=== PATIENT | female | born 1975 | race Caucasian/White ===

== ENCOUNTER → 2017-10-28 16:03 | Outpatient (CLI) | payer OTHER, SELFPAY | PROVIDERS: Visit Provider Otolaryngology Otolaryngology/Facial Plastic Surgery | DX: J32.9 Chronic sinusitis, unspecified (principal) | CPT/HCPCS: 87070; 87186; 87205 ==

== ENCOUNTER → 2019-03-27 06:56 | Outpatient (CLI) | payer OTHER, SELFPAY ==
--- NOTE | 2019-03-27 15:29 | PFTCOMP ---
COMPLETE PULMONARY FUNCTION TEST INTERPRETATION Brief HPI: Patient is a 43 year old female, currently under the care of Dr. Galeana, who presents to [facility] for complete pulmonary function tests secondary to diagnosis of cough. Respiratory therapist reports good effort and reproducible results. Interpretation: Forced expiration spirometry shows no large airways obstructive ventilatory defect with an FEV1 of 85% predicted. There is no significant bronchodilator response by strict ATS criteria. Spirograms are of good quality and plateau normally. The respiratory flow volume loop shows a normal pattern. Lung volumes by body plethysmography show a normal total lung capacity at 5.81 L, 103% predicted. All other lung volumes are within normal limits. Diffusion capacity by carbon monoxide is normal at 94% predicted. The airway resistance is normal. No previous pulmonary function tests were available for review. Impression: These pulmonary function tests are within normal limits. Consider bronchoprovocation study if asthma is a consideration.
== END ==
PROVIDERS: Referring Provider Otolaryngology Otolaryngology/Facial Plastic Surgery; Visit Provider Otolaryngology Otolaryngology/Facial Plastic Surgery
DX: R05 Cough (principal); T78.40XA Allergy, unspecified, initial encounter
CPT/HCPCS: 94060; 94726; 94729

== ENCOUNTER → 2020-04-04 16:29 | Outpatient (CLI) | payer BC, SELFPAY ==
[2019-11-27 06:54] VITALS: BMI 53.4
== END ==
PROVIDERS: Referring Provider Otolaryngology; Visit Provider Otolaryngology
DX: J32.9 Chronic sinusitis, unspecified (principal)
CPT/HCPCS: 87070; 87205

== ENCOUNTER 2021-03-30 20:51 | Emergency (ER) | payer BC, SELFPAY ==
[2021-01-21 07:50] VITALS: BMI 51.5
[2021-03-30 20:52] VITALS: BP 176/98; PULSE 87; RESP 15; TEMP 36.6; O2SAT 96; BMI 50.8
--- NOTE | 2021-03-30 21:12 | CT_ITS ---
STUDY: CT ABDOMEN AND PELVIS WITHOUT CONTRAST REASON FOR EXAM: Female, 45 years old. LOWER ABD PAIN, BACK PAIN, FREQUENT URINATION, HEMATURIA SHOWN ON LABS SINCE YESTERDAY. SX/ HYSTER RADIATION DOSAGE (If Supplied By Facility): CTDIvol = ( 23.99 ) mGy, DLP = ( 1222.60 ) mGycm TECHNIQUE: Transaxial images were obtained from the dome of the diaphragm to the symphysis pubis without oral contrast, and without intravenous contrast. Sagittal and coronal images were reconstructed. Individualized dose optimization techniques were used for this CT. COMPARISON: None. FINDINGS: The visualized lung bases are unremarkable. The visualized portions of the heart are within normal limits. There is decreased attenuation of the liver consistent with steatosis. Normal gallbladder and extrahepatic biliary system. Normal spleen. Normal pancreas. Normal bilateral adrenal glands. A 3.4 mm calyceal stone is present in lower pole of the right kidney. A 6.2 mm calyceal stone is also present in the inferior pole of the right kidney. A 1.14 cm calyceal stone is present in the lower pole of the left kidney. No additional visualized radiopaque stones of either kidney. No visualized hydronephrosis. Normal visualized stomach. Normal small intestine. Normal colon. The appendix is visualized and appears normal. Normal abdominal aorta. Normal inferior vena cava. Normal retroperitoneum. Normal urinary bladder. There is absence of the uterus consistent with a prior hysterectomy. Normal abdominal wall. Normal osseous structures. CT/Abdomen/Pelvis without Cont IMPRESSION: 1. Bilateral nonobstructing kidney stones. The largest stone is in the lower pole of the left kidney measure 1.14 cm in diameter. Electronically Signed: Carmine Smith MD at 22:07 EDT , Service support ,
--- NOTE | 2021-03-30 21:20 | EX.ED.DYSGE1 ---
HPI History of Present Illness Chief Complaint: Complaint Informant: patient Onset/Context/Timing Onset: Yesterday Context: Gradual Onset Timing: Continuous Quality: Cramping Location: Suprapubic Worsened by: Nothing Relieved by: Nothing Narrative Narrative: Patient presents with urinary frequency and suprapubic abdominal pain. Patient states this began yesterday. Patient states it is gradually getting worse. Patient states she went to the urgent care today. Patient states that her urine showed hematuria there. Patient states they then referred her to the emergency department for possible kidney stone. Patient denies any flank or back pain. Patient admits to some nausea but denies any vomiting. Patient admits to some subjective chills. Patient denies any fevers. Patient admits to some mild cramping in the suprapubic area. Patient states nothing makes it better nothing makes it worse. PFSH PFSH Medical History Allergic rhinitis Asthma Cough migraine Seasonal allergies Home Medications estradiol 1 mg tablet 1 mg PO DAILY 04/16/19 [History Last Taken Unknown] fluticasone propionate 50 mcg/actuation nasal spray,suspension 2 spray INTRANASAL DAILY 04/17/19 [History Last Taken Unknown] albuterol sulfate 90 mcg/actuation aerosol inhaler 2 puff INHALATION Q4H PRN #18 g 11/27/19 [Rx Last Taken Unknown] fluticasone furoate 200 mcg-vilanterol 25 mcg/dose inhalation powder 1 inh INHALATION Q24H #60 ea 01/21/21 [Rx Last Taken Unknown] montelukast 10 mg tablet 10 mg PO QPM #30 tab 01/21/21 [Rx Last Taken Unknown] Allergy/AdvReac Type Severity Reaction Status Date / Time codeine Allergy Intermediate Rash Verified 01/21/21 07:50 Penicillins [PCN] Allergy Diarrhea Verified 03/30/21 20:54 Family History Father Cancer Mother Asthma Grandfather Lung cancer Surgical History History of hysterectomy History of tonsillectomy and adenoidectomy Social History Smoking Status: Never smoker second hand exposure: No ROS ROS ED Constitutional Constitutional ED: Reports chills and subjective; Denies fever(s) Eyes Eyes: Denies blurry vision or change in vision ENT ENT ED: Denies rhinorrhea or sore throat Cardiovascular Cardiovascular: Denies chest pain or palpitations Respiratory/Chest Respiratory/Chest: Denies cough or dyspnea Gastrointestinal Gastrointestinal: Reports nausea; Denies vomiting Genitourinary Genitourinary ED: Reports urinary frequency; Denies dysuria or hematuria Musculoskeletal Musculoskeletal: Denies back pain or neck pain Integumentary Denies abscess or rash Neurologic Neurologic: Denies headache(s) or weakness Allergic/Immunologic Allergic/Immunologic ED: Denies mouth swelling or urticaria EXAM Physical Exam Const Vital Signs: 03/30/21 20:52 Temperature 97.8 F Temperature Source Temporal Pulse Rate 87 Respiratory Rate 15 Blood Pressure 176/98 H Blood Pressure Mean 124 Pulse Ox 96 Oxygen Delivery Method Room Air Positive well nourished, well developed and obese General Appearance ED: well developed Nutritional Appearance: obese HEENT Reports moist mucous membranes Neck supple and no JVD Resp normal respiratory effort and clear to auscultation bilaterally Cardio regular rate, regular rhythm and no murmurs GI normal to inspection, nondistended, normoactive bowel sounds Palpation: soft and tender suprapubic (Mild); Negative for guarding or rebound tenderness present Extremity normal to inspection General Extremety ED: Negative for edema or tenderness General Extremity: Negative for edema Neuro oriented x3, CN's II-XII intact bilaterally and no sensory deficits noted Sensorium / Orientation: alert Motor Exam: strength 5/5 throughout Psych mental status grossly normal Skin no rashes or lesions noted MDM MDM MDM Narrative Medical decision making narrative: Patient was given IV fluids and Zofran here. CBC and comprehensive metabolic profile were obtained and were within normal limits. Urinalysis was normal. There is no hematuria noted. CT scan of the abdomen pelvis was obtained. There are nonobstructing stones in the kidneys bilaterally. There is no acute abnormality noted. Patient was advised of her findings. Patient was instructed to drink plenty of fluids. Patient was instructed to follow-up with her primary care physician in 5 to 7 days. Patient understood and was agreeable with the plan. All questions were answered. Lab Data Attestation: I reviewed the patient's lab results. Labs: Laboratory Results - last 24 hr 03/30/21 03/30/21 03/30/21 21:03 21:33 21:33 WBC 7.8 RBC 4.61 Hgb 13.6 Hct 41.6 MCV 90.2 MCH 29.5 MCHC 32.7 RDW Std Deviation 41.6 RDW Coeff of Berenice 12.7 Plt Count 277 MPV 9.8 Immature Gran % (Auto) 0.500 Neut % (Auto) 63.0 Lymph % (Auto) 25.8 [place] % (Auto) 8.4 Eos % (Auto) 1.0 Baso % (Auto) 1.3 H Absolute Neuts (auto) 4.9 Absolute Lymphs (auto) 2.01 Nucleated RBC % 0 Sodium 136 Potassium 3.7 Chloride 106 Carbon Dioxide 25.0 Anion Gap 5 BUN 11 Creatinine 0.82 Estim Creat Clear Calc 84.25 Est GFR (MDRD) Af Amer 97 Est GFR (MDRD) Non-Af 80 BUN/Creatinine Ratio 13.4 Glucose 89 Calcium 9.4 Total Bilirubin 0.40 AST 18 ALT 17 Alkaline Phosphatase 69 Total Protein 7.9 Albumin 3.4 Globulin 4.5 H Albumin/Globulin Ratio 0.8 L Urine Color Yellow Urine Clarity Clear Urine pH 7.0 Ur Specific [place] 1.005 Urine Protein Negative Urine Glucose (UA) Normal Urine Ketones Negative Urine Occult Blood Negative Urine Nitrite Negative Urine Bilirubin Negative Urine Urobilinogen Normal Ur Leukocyte Esterase Negative Urine RBC 0 SEEN Urine WBC 0 SEEN Ur Squamous Epith Cells 0-5 SEEN Urine Bacteria 0 SEEN Urine Mucus 0 SEEN Radiography Diagnostic Testing: Radiology Impression Abdomen/Pelvis CT 03/30/21 21:12 IMPRESSION: 1. Bilateral nonobstructing kidney stones. The largest stone is in the lower pole of the left kidney measure 1.14 cm in diameter. Electronically Signed: Carmine Smith MD at 22:07 EDT , Service support , Discharge Plan Triage Chief Complaint: Complaint ED Provider: Abimael Peter Dx/Rx/DC Orders Clinical Impression: Abdominal pain Instructions: ED Abdominal Pain Unkn Cause Fem, ED Kidney Stone Undescended No ... Prescriptions: No Action estradiol 1 mg tablet 1 mg PO DAILY RF: 0 fluticasone propionate [Flonase Allergy Relief] 50 mcg/actuation spray,suspension 2 spray INTRANASAL DAILY RF: 0 albuterol sulfate 90 mcg/actuation HFA aerosol inhaler 2 puff INHALATION Q4H PRN (Reason: shortness of breath or wheezing) Qty: 18 RF: 3 Breo Ellipta 200-25 mcg/dose blister with device 1 inh INHALATION Q24H Qty: 60 RF: 6 montelukast 10 mg tablet 10 mg PO QPM Qty: 30 RF: 5 Primary Care Provider: Care Physician,No Primary Referrals: Pankaj Rick MD [NON-STAFF] - 5-7 Days Care Physician,No Primary [Primary Care Provider] - Disposition Disposition: Home, Self Care
[2021-03-30] MEDS: 0.9% Normal Saline 1,000 ML 1000 ML IV (21:35)
[2021-03-30] MEDS: Ondansetron 4 MG/2 ML Vial IV (21:35)
[2021-03-30 21:36] LABS: Bacteria 0 SEEN /hpf (None Seen); Mucous, Urine 0 SEEN /hpf (<or=2+); Red Blood Cells-Urine 0 SEEN /hpf (0-5); White Blood Cells 0 SEEN /hpf (0-5)
[2021-03-30 21:37] LABS: Color, Urine Yellow (Yellow); Glucose, Dipstick Normal (Normal); Ketone-Dipstick Negative (Negative); Leukocyte Esterase-Dipstick Negative /ul (Negative); Nitrite-Dipstick Negative (Negative); Occult Blood-Urine Negative /ul (Negative); Protein-Dipstick Negative (Negative); Specific Gravity, Urine 1.005 (1.002-1.030); Urine Bilirubin Dipstick Negative (Negative); Urine Clarity Clear (Clear); Urine Urobilinogen Normal (Normal)
[2021-03-30 21:43] LABS: Squamous Epithelial Cells - UA 0-5 SEEN /hpf (5-10)
[2021-03-30 21:44] LABS: Absolute Lymphocyte Count 2.01 X10^3/uL (0.83-4.51); Absolute Neutrophil Count 4.9 X10^3/uL (2.0-7.7); Basophil% 1.3 % (0-1); Eosinophil# 0.08 X10^3/uL; Hematocrit 41.6 % (37-47); Hemoglobin 13.6 g/dL (12.0-15.0); Lymphocyte # 2.01 X10^3/ul (0.83-4.51); Lymphocyte % 25.8 % (19-41); Mean Corp Hgb Conc 32.7 g/dL (32-36); Mean Corpuscular Hgb 29.5 pg (27.0-32.0); Mean Corpuscular Volume 90.2 fL (81-99); Mean Platelet Vol. 9.8 fl (6.2-12.0); Monocyte# 0.65 X10^3/uL; Monocyte% 8.4 % (0-10); NRBC Flagged by Analyzer 0 % (0-5); Platelet Count 277 K/mm3 (150-450); RBC Distribution Width CV 12.7 % (11.6-14.6); RBC Distribution Width SD 41.6 fl (35.1-43.9); Red Blood Count 4.61 M/mm3 (4.2-5.4); White Blood Count 7.8 K/mm3 (4.4-11.0)
[2021-03-30 21:56] LABS: ALB/GLOB Ratio 0.8 RATIO (0.9-2.4); AST(SGOT) 18 U/L (15-37); Alanine Aminotransfer ALT/SGPT 17 U/L (13-56); Albumin, Serum 3.4 g/dL (3.2-5.0); Alkaline Phosphatase 69 U/L (45-117); Anion Gap 5 (5-15); BUN 11 mg/dL (7-18); BUN/Creat Ratio 13.4 RATIO (10-20); Calcium,Total 9.4 mg/dL (8.5-10.1); Chloride 106 mmol/L (98-107); Creatinine, Serum 0.82 mg/dL (0.55-1.02); EST Glomerular Filtration Rate 80 mL/min (>60); Est Glom Filt Rate - Afr Amer 97 mL/min (>60); Estimated Creatinine Clearance 84.25 ml/min; Globulin 4.5 g/dL (2.2-4.2); Glucose 89 mg/dL (74-106); Potassium 3.7 mmol/L (3.5-5.1); Protein, Total 7.9 g/dL (6.4-8.2); Sodium Level 136 mmol/L (136-145)
== END 2021-03-30 23:00 | disposition home or self-care (01) ==
PROVIDERS: Emergency Provider Emergency Medicine
DX: R10.30 Lower abdominal pain, unspecified (principal); N20.0 Calculus of kidney; R35.0 Frequency of micturition; R11.0 Nausea; R68.83 Chills (without fever); J45.909 Unspecified asthma, uncomplicated
CPT/HCPCS: 74176; 80053; 81001; 85025; 96374; 99283; J7030; A4216; J2405

== ENCOUNTER 2021-11-07 11:30 | Outpatient (CLI) | payer BC, SELFPAY | END 2021-11-07 23:59 | disposition home or self-care (01) | LOC: LABSPEC 11:33 | PROVIDERS: PCP Otolaryngology; Referring Provider Otolaryngology; Visit Provider Otolaryngology | DX: J32.9 Chronic sinusitis, unspecified (principal) | CPT/HCPCS: 87070; 87205 ==

== ENCOUNTER → 2022-08-19 | Outpatient (CLI) | payer BC, SELFPAY | END | disposition home or self-care (01) | LOC: LABSPEC 15:38 | PROVIDERS: PCP Otolaryngology; Visit Provider Otolaryngology | DX: J32.9 Chronic sinusitis, unspecified (principal) | CPT/HCPCS: 87070; 87205 ==

== ENCOUNTER 2022-12-20 06:22 | Emergency (ER) | payer BC, SELFPAY ==
[2022-12-20 06:22] VITALS: PULSE 95; RESP 15; TEMP 36.9; O2SAT 100; BMI 54.2
[2022-12-20 06:28] VITALS: BP 176/101
[2022-12-20 06:43] VITALS: BP 130/74; PULSE 74; RESP 17; TEMP 37.2
--- NOTE | 2022-12-20 06:50 | CT_ITS ---
EXAM: CT ABDOMEN AND PELVIS WITH INTRAVENOUS CONTRAST CLINICAL INDICATION: ruq abd pain TECHNIQUE: Helically acquired images were obtained of the abdomen and pelvis with intravenous contrast. This CT exam was performed using one or more of the following dose reduction techniques: automated exposure control, adjustment of the mA and/or kV according to patient size, and/or use of iterative reconstruction technique. This report was created using [employer] report generation technology. CONTRAST: IV 100mL Isovue-370 COMPARISON: CT Abdomen Pelvis dated 03/30/2021 FINDINGS: LOWER THORAX: Normal. Lung bases are clear. No cardiomegaly. No pericardial effusion. ABDOMEN: LIVER: Mild to moderate hepatic steatosis. GALLBLADDER AND BILE DUCTS: Normal. No calcified gallstones. No gallbladder distention or wall edema. No intra- or extrahepatic biliary ductal dilation. PANCREAS: Normal. No focal cystic or solid mass. SPLEEN: Normal. Normal size without focal cystic or solid mass. ADRENALS: Normal. No nodules. KIDNEYS AND URETERS: 7 mm right ureteral stone identified at or just beyond the ureteropelvic junction associated with right hydronephrosis and decreased right nephrogram. Nonobstructive 10 mm lower pole infundibulum stone noted within the left kidney. STOMACH AND BOWEL: Normal. No bowel distention. No focal inflammatory change. PELVIS: APPENDIX: Appendix is visualized and normal in appearance. BLADDER: Normal. REPRODUCTIVE: Uterus is absent. ABDOMEN and PELVIS: INTRAPERITONEAL SPACE: Normal. No ascites or other fluid collection. No free air. BONES/JOINTS: No suspicious lytic or blastic abnormality. SOFT TISSUES: Small fat-containing umbilical hernia is present. VASCULATURE: Normal. Abdominal aorta is non-dilated. LYMPH NODES: Normal. No enlarged lymph nodes. CT/Abdomen/Pelvis W IV Cont ONLY IMPRESSION: 1. Obstructive 7 mm proximal right ureteral stone. 2. Nonobstructive 10 mm left renal stone. 3. Hepatic steatosis. Electronically Signed: Vish Curtis MD at 7:31 EDT ,
--- NOTE | 2022-12-20 06:53 | EDS_ITS ---
HPI HPI - GI History of Present Illness Chief Complaint: Abd Pain Informant: patient and spouse/S.O. Abdominal Pain/Flank Pain Onset: Weeks Context: Gradual Onset Timing: Intermittent Quality: Cramping and Dull Location: RUQ Current Severity: Moderate Maximum Severity: Moderate Worsened by: Food Relieved by: Nothing Nausea/Vomiting/Emesis GI Symptom: Positive for Nausea and Vomiting Onset: Today Severity: Mild Diarrhea/Melena/Hematochezia GI Symptom: Negative for Diarrhea, Melena or Hematochezia Associated Symptoms Associated Symptoms: Negative for Dysuria, Frequency, Hematuria or Urgency Narrative Narrative: 47-year-old female history of prior hysterectomy with BSO. Prior kidney stone. States that she has had right upper quadrant abdominal pain intermittent for the last several weeks. Worse with eating. Nothing particular makes it better. Denies any fever or chills. No weight change. No abdominal trauma. Denies any dysuria hematuria. No fever. Worse pain this morning. She has not had it evaluated till today. Prior similar symptoms: No Recent Illness/Hospitalization: No PFSH PFSH Medical History Allergic rhinitis Asthma Cough migraine Seasonal allergies Home Medications estradiol 1 mg tablet 1 mg PO DAILY 04/16/19 [History Last Taken Unknown] albuterol sulfate 90 mcg/actuation aerosol inhaler 2 puff inhalation Q4H PRN shortness of breath or wheezing #18 grams 07/22/21 [Rx Last Taken Unknown] fluticasone propionate 50 mcg/actuation nasal spray,suspension (Flonase Allergy Relief) 2 spray intranasal DAILY #16 grams 09/02/21 [Rx Last Taken Unknown] fluticasone furoate 200 mcg-vilanterol 25 mcg/dose inhalation powder (Breo Ellipta) 1 inh inhalation Q24H #3 device 01/06/22 [Rx Last Taken Unknown] montelukast 10 mg tablet 10 mg PO QPM #90 tabs 01/06/22 [Rx Last Taken Unknown] hydrocodone-acetaminophen 5-325mg 5mg-325mg 1 tab PO Q4H PRN pain 4 days #20 tabs 12/20/22 [Rx Last Taken Unknown] ondansetron 4 mg disintegrating tablet 4 mg PO Q8H PRN nausea and vomiting #10 tabs 12/20/22 [Rx Last Taken Unknown] Allergy/AdvReac Type Severity Reaction Status Date / Time codeine Allergy Intermediate Rash Verified 01/06/22 07:46 Penicillins [PCN] AdvReac Yeast Verified 01/06/22 07:46 infection Family History Father Cancer Mother Asthma Grandfather Lung cancer Surgical History History of hysterectomy History of tonsillectomy and adenoidectomy Social History Smoking Status: Never smoker second hand exposure: No ROS ROS ED ROS Narrative Right upper quadrant abdominal pain. Nausea vomiting. No dysuria. No fever. Review of Systems ROS Unobtainable: Denies due to encephalopathy Constitutional Constitutional ED: Denies chills or fever(s) ENT ENT ED: Denies ear pain Cardiovascular Cardiovascular: Denies chest pain Respiratory/Chest Respiratory/Chest: Denies cough or dyspnea Gastrointestinal Gastrointestinal: Reports abdominal pain, nausea and vomiting; Denies constipation, diarrhea or melena Genitourinary Genitourinary ED: Denies dysuria or hematuria Musculoskeletal Musculoskeletal: Denies arthralgias Integumentary Denies abscess Neurologic Neurologic: Denies headache(s) Psychiatric Psychiatric: Denies anxiety Endocrine Endocrinology: Denies polydipsia Hematologic/Lymphatic Hematologic/Lymphatic: Denies easy bleeding Allergic/Immunologic Allergic/Immunologic ED: Denies mouth swelling or tongue swelling EXAM Physical Exam Narrative Exam Narrative: [id number]-[id number]-alk female vital signs stable afebrile does look septic toxic. H EENT exam unremarkable. Neck nontender. Lungs clear. Heart regular rhythm no murmur. Abdomen soft nondistended normal bowel sounds no peritoneal signs. Mild right upper quadrant tenderness. No McBurney's point tenderness. No hernia or mass. No signs of obstruction. No pulsatile mass. Back nontender. No CVA tenderness. Moving all 4 extremities. Neurovascular intact. Neurologically awake and alert with no focal motor deficits. Const Vital Signs: 12/20/22 06:22 12/20/22 06:28 12/20/22 06:43 Temperature 98.4 F 99 F Temperature Source Temporal Temporal Pulse Rate 95 74 Respiratory Rate 15 17 Blood Pressure 176/101 H 130/74 H Blood Pressure Mean 126 92 Pulse Ox 100 Oxygen Delivery Method Room Air 12/20/22 09:00 Temperature Temperature Source Pulse Rate 76 Respiratory Rate 16 Blood Pressure 142/75 H Blood Pressure Mean 97 Pulse Ox 97 Oxygen Delivery Method Room Air Positive well nourished, well developed and obese; Negative for cachectic, contractures or unkempt General Appearance ED: well developed and NAD; Negative for unkempt, cachectic, contractures or pallor Nutritional Appearance: obese; Negative for cachectic HEENT Reports moist mucous membranes normocephalic and atraumatic; Negative for trauma or tenderness Eyes PERRL and EOMs intact bilaterally General Eye ED: Negative for pale conjunctiva or scleral icterus Neck no lymphadenopathy, supple and no JVD General: Negative for tenderness Carotids: Negative for other Lymph Lymphatic: Negative for other Resp normal respiratory effort and clear to auscultation bilaterally Effort and Inspection: Negative for respiratory distress or retractions Auscultation: Negative for rales, rhonchi or wheezes Cardio regular rate, regular rhythm, S1 normal heart sound, S2 normal heart sound and no murmurs Rate: Negative for bradycardia or tachycardic Rhythm: Negative for abnormal rhythm GI non-distended and no masses; Negative for non-tender Inspection: Negative for abdominal distention Auscultation: normoactive bowel sounds Palpation: soft and tender; Negative for guarding, rigid, hepatomegaly, splenomegaly, hernia, mass, pulsatile mass or rebound tenderness present Back/Spine no CVA tenderness General Back: Negative for CVA tenderness Cervical Spine: Negative for cervical spine tenderness Thoracic Spine / Upper Back: Negative for thoracic spinal tenderness Lumbar Spine / Lower Back: Negative for lumbar spinal tenderness Coccyx: Negative for other Extremity full ROM General Extremety ED: Negative for edema, tenderness or other findings General Extremity: Negative for edema or other findings Neuro CN's II-XII intact bilaterally and moves all extremities Sensorium / Orientation: alert, oriented to person, oriented to place and oriented to time; Negative for orientation impaired, confused, lethargic or stuporous Motor Exam: strength 5/5 throughout Psych mental status grossly normal and thought process normal Appearance: Negative for unkempt Attitude: No agitated Mood & Affect: Negative for depressed, anxious or tearful Skin no wounds General Skin Exam: Negative for jaundice or pallor Rashes: no rashes Trauma: Negative for abrasion Nails: Negative for discolored MDM MDM MDM Narrative Medical decision making narrative: 47-year-old female with right upper quadrant abdominal pain intermittently for 2 weeks. Worse with eating. This may be associated with gallbladder disease and later gallstones. She had a kidney stone before that the possibility historically sounds like gallbladder. I do not think it is an appendectomy without the possibility to her right side diverticulitis. CAT scan and labs pending. Treated with morphine for pain with Zofran for nausea. Toradol for pain also. Repeat exam patient is doing well at 9:45 AM. She still has pain but it is definitely improved. She will be given another dose of morphine and discharged home. She has a follow-up with urology either Dr. Biswas or Dr. Julian. [place] for pain. Zofran for nausea. Motrin 40 mg twice a day. Plenty of fluids. Colace to help with constipation. Return if intractable pain, vomiting or fever or feeling worse. History & Record Review Discussion w/independent historian: Patient Lab Data Attestation: I reviewed the patient's lab results. Lab results narrative: CBC normal. White count of 5.9. H&H 13.9 and 42. Platelets 271. Electrolytes sodium 134. Gap 6. Normal BUN and creatinine. Liver enzymes unremarkable. Glucose 119. Lipase normal at 95. uUrinalysis is negative. Labs: Laboratory Results - last 24 hr 12/20/22 12/20/22 12/20/22 06:40 06:40 07:30 WBC 5.9 RBC 4.66 Hgb 13.9 Hct 42.7 MCV 91.6 MCH 29.8 MCHC 32.6 RDW Std Deviation 43.3 RDW Coeff of Berenice 13.0 Plt Count 271 MPV 10.3 Immature Gran % (Auto) 0.500 Neut % (Auto) 65.2 Lymph % (Auto) 22.9 [place] % (Auto) 8.3 Eos % (Auto) 1.7 Baso % (Auto) 1.4 H Absolute Neuts (auto) 3.8 Absolute Lymphs (auto) 1.35 Nucleated RBC % 0 Sodium 134 L Potassium 4.2 Chloride 106 Carbon Dioxide 22.0 Anion Gap 6 BUN 16 Creatinine 0.85 Estim Creat Clear Calc 79.57 Est GFR (MDRD) Af Amer 93 Est GFR (MDRD) Non-Af 77 BUN/Creatinine Ratio 18.9 Glucose 119 H Calcium 10.1 Total Bilirubin 0.30 AST 20 ALT 23 Alkaline Phosphatase 60 Total Protein 7.7 Albumin 3.4 Globulin 4.3 H Albumin/Globulin Ratio 0.8 L Lipase 95 Urine Color Yellow Urine Clarity Clear Urine pH 7.0 Ur Specific [place] 1.010 Urine Protein Negative Urine Glucose (UA) Normal Urine Ketones Negative Urine Occult Blood 25 H Urine Nitrite Negative Urine Bilirubin Negative Urine Urobilinogen Normal Ur Leukocyte Esterase Negative Urine RBC 0-5 SEEN Urine WBC 0 SEEN Ur Squamous Epith Cells 0-5 SEEN Urine Bacteria RARE Urine Mucus 0 SEEN Radiography Diagnostic Testing: Clinical Impression(s) from Imaging Studies Abdomen/Pelvis CT 12/20/22 06:50 IMPRESSION: 1. Obstructive 7 mm proximal right ureteral stone. 2. Nonobstructive 10 mm left renal stone. 3. Hepatic steatosis. Electronically Signed: Vish Curtis MD at 7:31 EDT Reading Location ID and State: [facility] / [place] Tel , Service support , Discharge Plan Triage Chief Complaint: Abd Pain ED Provider: Zen Douglas Dx/Rx/DC Orders Clinical Impression: Acute right flank pain, Kidney stone on right side Instructions: ED Kidney Stone w/ Colic Prescriptions: New hydrocodone-acetaminophen 5-325 mg tablet 1 tab PO Q4H PRN (Reason: pain) 4 Days Qty: 20 0RF ondansetron 4 mg tablet,disintegrating 4 mg PO Q8H PRN (Reason: nausea and vomiting) Qty: 10 0RF No Action estradiol 1 mg tablet 1 mg PO DAILY albuterol sulfate 90 mcg/actuation HFA aerosol inhaler 2 puff INHALATION Q4H PRN (Reason: shortness of breath or wheezing) Qty: 18 3RF Breo Ellipta 200-25 mcg/dose blister with device 1 inh INHALATION Q24H Qty: 3 3RF montelukast 10 mg tablet 10 mg PO QPM Qty: 90 3RF fluticasone propionate [Flonase Allergy Relief] 50 mcg/actuation spray,suspension 2 spray INTRANASAL DAILY Qty: 16 6RF Primary Care Provider: Care Physician,No Primary Referrals: Brandon Sandoval MD [Med Staff - Active Staff] - Dali Biswas MD [Med Staff - Active Staff] - As soon as possible Fritz Julian MD [Med Staff - Active Staff] - As soon as possible Activity Restrictions/Additional Instructions: [place] for pain no more than 2 every 6 hours. Motrin 400 mg 3 times per day. Zofran as needed for nausea. Plenty of fluids to help prevent constipation. Fruits, vegetables and fiber. Colace as needed for constipation. You have a 7 mm stone on the right just below your kidney. Typically at 8 mm a get stuck but this 1 may have difficulty passing. Call and follow-up with either one of the urologist I referred you to to see which one can get you in sooner. This may pass on its own. It may need a procedure to help get it removed. Return if intractable pain, fever, intractable vomiting or just feeling worse. No driving today. And no driving while taking the pain medication. Disposition Disposition: Home, Self Care
[2022-12-20] MEDS: 0.9% Normal Saline 1,000 ML 1000 ML IV (06:58)
[2022-12-20] MEDS: Ondansetron 4 MG/2 ML Vial IV ×2 (06:58→10:10)
[2022-12-20] MEDS: Ketorolac 15 MG/ML Vial IV (06:59)
[2022-12-20] MEDS: morphine 8 MG/ML Syringe IV (06:59)
[2022-12-20 07:09] LABS: Absolute Lymphocyte Count 1.35 X10^3/uL (0.83-4.51); Absolute Neutrophil Count 3.8 X10^3/uL (2.0-7.7); Basophil# 0.08 X10^3/uL; Basophil% 1.4 % (0-1); Eosinophils% 1.7 % (0-5); Hematocrit 42.7 % (37-47); Hemoglobin 13.9 g/dL (12.0-15.0); Lymphocyte # 1.35 X10^3/ul (0.83-4.51); Lymphocyte % 22.9 % (19-41); Mean Corp Hgb Conc 32.6 g/dL (32-36); Mean Corpuscular Hgb 29.8 pg (27.0-32.0); Mean Corpuscular Volume 91.6 fL (81-99); Mean Platelet Vol. 10.3 fl (6.2-12.0); Monocyte# 0.49 X10^3/uL; Monocyte% 8.3 % (0-10); NRBC Flagged by Analyzer 0 % (0-5); Neutrophil # 3.84 X10^3/uL (2.7-7.7); Neutrophil % 65.2 % (47-70); POSITIVE COUNT YES; Platelet Count 271 K/mm3 (150-450); RBC Distribution Width SD 43.3 fl (35.1-43.9); Red Blood Count 4.66 M/mm3 (4.2-5.4); White Blood Count 5.9 K/mm3 (4.4-11.0)
[2022-12-20 07:10] LABS: Differential Indicated SCAN CRITERIA MET
[2022-12-20 07:11] LABS: ALB/GLOB Ratio 0.8 RATIO (0.9-2.4); AST(SGOT) 20 U/L (15-37); Alanine Aminotransfer ALT/SGPT 23 U/L (13-56); Albumin, Serum 3.4 g/dL (3.2-5.0); Alkaline Phosphatase 60 U/L (45-117); Anion Gap 6 (5-15); BUN 16 mg/dL (7-18); BUN/Creat Ratio 18.9 RATIO (10-20); Calcium,Total 10.1 mg/dL (8.5-10.1); Chloride 106 mmol/L (98-107); Creatinine, Serum 0.85 mg/dL (0.55-1.02); EST Glomerular Filtration Rate 77 mL/min (>60); Est Glom Filt Rate - Afr Amer 93 mL/min (>60); Estimated Creatinine Clearance 79.57 ml/min; Globulin 4.3 g/dL (2.2-4.2); Glucose 119 mg/dL (74-106); Lipase 95 U/L (73-393); Potassium 4.2 mmol/L (3.5-5.1); Protein, Total 7.7 g/dL (6.4-8.2); Sodium Level 134 mmol/L (136-145)
[2022-12-20 07:31] LABS: Mucous, Urine 0 SEEN /hpf (<or=2+); White Blood Cells 0 SEEN /hpf (0-5)
[2022-12-20 07:37] LABS: Color, Urine Yellow (Yellow); Glucose, Dipstick Normal (Normal); Ketone-Dipstick Negative (Negative); Leukocyte Esterase-Dipstick Negative /ul (Negative); Nitrite-Dipstick Negative (Negative); Occult Blood-Urine 25 /ul (Negative); Protein-Dipstick Negative (Negative); Urine Bilirubin Dipstick Negative (Negative); Urine Clarity Clear (Clear); Urine Urobilinogen Normal (Normal)
[2022-12-20 07:46] LABS: Bacteria RARE /hpf (None Seen); Red Blood Cells-Urine 0-5 SEEN /hpf (0-5); Squamous Epithelial Cells - UA 0-5 SEEN /hpf (5-10)
[2022-12-20 09:00] VITALS: BP 142/75; PULSE 76; RESP 16; O2SAT 97
[2022-12-20] MEDS: morphine 8 MG/ML Syringe 6 MG IV (10:10)
[2022-12-20 10:13] VITALS: BP 142/75; PULSE 76; RESP 16; TEMP 36.7
== END 2022-12-20 10:37 | disposition home or self-care (01) ==
PROVIDERS: Emergency Provider Emergency Medicine; Visit Provider Emergency Medicine
DX: N20.2 Calculus of kidney with calculus of ureter (principal); R11.2 Nausea with vomiting, unspecified; J45.909 Unspecified asthma, uncomplicated; Z90.710 Acquired absence of both cervix and uterus; Z87.442 Personal history of urinary calculi
CPT/HCPCS: 74177; 80053; 81001; 83690; 85025; 96361; 96374; 96375; 96376; 99284; J7030; A4216; J2405

== ENCOUNTER 2022-12-21 09:45 | Day surgery (SDC) | payer BC, SELFPAY ==
[2022-12-21 10:18] VITALS: BP 196/84; PULSE 80; RESP 18; TEMP 36.7; O2SAT 95; BMI 52.0
[2022-12-21] MEDS: Lactated Ringers 1,000 ML 15 ML IV (12:00)
--- NOTE | 2022-12-21 12:10 | OP.PCM_ITS ---
Report of Operation Date of Procedure: 12/21/22 Pre-Operative Diagnosis: Right ureteral calculus, hydronephrosis Post-Operative Diagnosis: Same Surgery/Procedure Performed:: Cystoscopy, right retrograde pyelogram, right ureteroscopy, holmium laser lithotripsy, stone basket extraction, right ureteral stent insertion Surgeon: Dali Biswas Type of Anesthesia: General Specimen's removed: Stone fragments Description of Procedure: The patient is a 47-year-old female who presented to the office this morning with significant pain nausea and vomiting from a right-sided proximal ureteral calculus. Informed consent was obtained and she agreed to proceed with surgical intervention. The patient was taken to the operating room and placed on the operating room table. She was appropriately padded and secured to the table. Anesthesia monitored the head, neck, airway, IV access and vital signs throughout the case. Once anesthesia was appropriately administered, the pa tient was placed into dorsal lithotomy position and was prepped and draped in usual sterile fashion. The cystoscope was inserted through the urethra under direct visualization into the urinary bladder. There were no masses areas of erythema or abnormality of the urinary bladder identified. The right ureteral orifice was gently intubated with a an 8 Latvian cone-tip catheter and a retrograde pyelogram was performed under fluoroscopic visualization revealing a stone stuck in the proximal right ureter. At this time 2 separate 0.035 glide wires were placed through the right ureteral orifice into the renal pelvis is seen on fluoroscopic visualization. A ureteral access sheath was then placed over one of the wires under fluoroscopic visualization as well. There was no difficulty in placement of the access sheath. The flexible ureteroscope was then inserted through the sheath to the proximal ureter where the stone was identified and fragmented into several small pieces which were then removed with a stone basket. Once all pieces were removed that were identified, the ureteroscope was used to directly visualize removal of the reaccessed sheath. The cystoscope was then used to place a 4.5 Latvian by 28 cm JJ stent with good positioning in the renal pelvis as well as the urinary bladder. On the left side, the 1 cm left renal stone was easily visualized on fluoroscopy. Grafts/Implants Used: 4.5 x 28 cm JJ stent insertion Complications none Admit VTE Documentation VTE Present on Admission: Yes VTE Mechan Device Prophylaxis: SCD's VTE Pharm Prophylaxis ordered?: No Reason prophylaxis not ordered:: Treatment Not Indicated
--- NOTE | 2022-12-21 12:11 | DCINST_ITS ---
Discharge Instructions Diet Discharge Diet: No restrictions Activity Discharge Activity: Return to Normal Activity May resume sexual activity in: No Restrictions Dressing / Incision Call your doctor if you observe: Fever of 101 or Higher, Inability to urinate and Inability to have a bowel movement Follow Up Care Please Follow Up With: Dali Biswas MD When: call office for appt Test Results: Test results from this visit will be discussed in further detail at your follow- up appointment, if applicable. Discharge Plan Admission Attending Provider: Dali Biswas Primary Care Provider: Felicia PhysicianKaitlin Primary Discharge Orders/Prescriptions Prescriptions: New phenazopyridine [Pyridium] 200 mg tablet 200 mg PO TID PRN PRN (Reason: Bladder Spasms) 7 Days Qty: 30 0RF cephalexin [cephalexin] 500 mg capsule 500 mg PO Q12 3 Days Qty: 6 0RF Continued estradiol 1 mg tablet 1 mg PO DAILY albuterol sulfate 90 mcg/actuation HFA aerosol inhaler 2 puff INHALATION Q4H PRN (Reason: shortness of breath or wheezing) Qty: 18 3 RF Breo Ellipta 200-25 mcg/dose blister with device 1 inh INHALATION Q24H Qty: 3 3RF montelukast 10 mg tablet 10 mg PO QPM Qty: 90 3RF hydrocodone-acetaminophen 5-325 mg tablet 1 tab PO Q4H PRN (Reason: pain) 4 Days Qty: 20 0RF ondansetron 4 mg tablet,disintegrating 4 mg PO Q8H PRN (Reason: nausea and vomiting) Qty: 10 0RF fluticasone propionate [Flonase Allergy Relief] 50 mcg/actuation spray,suspension 2 spray INTRANASAL DAILY Qty: 16 6RF Referrals / Follow Up: Care PhysicianKaitlin Primary [Primary Care Provider] - Disposition Disposition (needs filled in before D/C Order can be placed): Home, Self Care
[2022-12-21 13:19] VITALS: BP 174/88; BP 196/84; PULSE 83; RESP 18; TEMP 36.3; O2SAT 95
[2022-12-21 13:30] VITALS: BP 143/90; BP 196/84; PULSE 72; RESP 16; O2SAT 95
[2022-12-21 13:45] VITALS: BP 150/80; BP 196/84; PULSE 68; RESP 16; O2SAT 94
[2022-12-21 14:00] VITALS: BP 153/85; BP 196/84; PULSE 65; RESP 16; TEMP 36.1; O2SAT 98
[2022-12-21 14:54] VITALS: BP 196/84
[2022-12-25 14:40] LABS: Source RIGHT URETER
== END 2022-12-21 15:06 | disposition home or self-care (01) ==
LOC: SDC 09:47 → AC 09:48
PROVIDERS: Referring Provider Urology; Visit Provider Urology
PROC: 0TJ98ZZ Inspection of Ureter, Via Natural or Artificial Opening Endoscopic (ICD-10-PCS; CPT 52352; principal; 2022-12-21 12:00)
DX: N13.2 Hydronephrosis with renal and ureteral calculous obstruction (principal); R11.2 Nausea with vomiting, unspecified; R10.9 Unspecified abdominal pain; J30.2 Other seasonal allergic rhinitis
CPT/HCPCS: 52356; 00873; 76000; 82360; J7120; J2405

== ENCOUNTER 2023-01-20 13:10 | Day surgery (SDC) | payer BC, SELFPAY ==
[2023-01-20 13:41] VITALS: BP 149/77; PULSE 80; RESP 18; TEMP 36.6; O2SAT 98; BMI 50.7
[2023-01-20] MEDS: Lactated Ringers 1,000 ML 15 ML IV (13:45)
--- NOTE | 2023-01-20 15:05 | PCM.OPRPT ---
Report of Operation Date of Procedure: 01/20/23 Pre-Operative Diagnosis: Left renal calculus Post-Operative Diagnosis: Same Surgery/Procedure Performed:: Cystoscopy, left ureteral stent insertion, left renal extracorporal shockwave lithotripsy Surgeon: Dali Biswas Type of Anesthesia: General Specimen's removed: None Description of Procedure: The patient is a 47-year-old female with a 1 cm left renal stone who presents for surgical intervention. Informed consent was obtained. The patient was taken the operating room and placed on the lithotripsy table. Anesthesia monitored the head, neck, airway, IV access and vital signs throughout the case. Once anesthesia was apparently administered, the patient was placed into dorsolithotomy position and was prepped and draped in usual sterile fashion. The cystoscope was inserted through the urethra under direct visualization into the urinary bladder. There were no mucosal abnormalities identified. The left ureteral orifice was identified and intubated with a 0.035 Glidewire. A 4.5 x 28 cm JJ stent was placed over the wire with good positioning in the left renal pelvis and urinary bladder. Bladder was emptied and the cystoscope was removed. The patient was then repositioned on the lithotripsy table in a supine position. Her stone was identified and 3000 shocks were applied to the stone. At this time the stone appeared to be well fragmented. She was awakened and taken to the recovery room in good condition. There were no complications during this procedure. Grafts/Implants Used: 4.5 x 28 cm JJ stent Complications None Admit VTE Documentation VTE Present on Admission: Yes VTE Mechan Device Prophylaxis: SCD's VTE Pharm Prophylaxis ordered?: No Reason prophylaxis not ordered:: Treatment Not Indicated
--- NOTE | 2023-01-20 15:08 | DCINST_ITS ---
Discharge Instructions Diet Discharge Diet: No restrictions Activity Discharge Activity: Return to Normal Activity Dressing / Incision Call your doctor if you observe: Fever of 101 or Higher, Inability to urinate and Inability to have a bowel movement Follow Up Care Please Follow Up With: Dali Biswas MD When: Call the office for appointment in 2 to 3 weeks with KUB for stent removal Test Results: Test results from this visit will be discussed in further detail at your follow- up appointment, if applicable. Discharge Plan Admission Attending Provider: Dali Biswas Primary Care Provider: Felicia PhysicianKaitlin Primary Discharge Orders/Prescriptions Prescriptions: New fluconazole [Diflucan] 150 mg tablet 150 mg PO DAILY 2 Days Qty: 2 0RF oxycodone-acetaminophen [Percocet] 5-325 mg tablet 1 tab PO Q8H PRN (Reason: pain) 3 Days Qty: 14 0RF cephalexin [cephalexin] 500 mg capsule 500 mg PO Q12 3 Days Qty: 6 0RF Continued estradiol 1 mg tablet 1 mg PO DAILY albuterol sulfate 90 mcg/actuation HFA aerosol inhaler 2 puff INHALATION Q4H PRN (Reason: shortness of breath or wheezing) Qty: 18 3RF Breo Ellipta 200-25 mcg/dose blister with device 1 inh INHALATION Q24H Qty: 3 3RF montelukast 10 mg tablet 10 mg PO QPM Qty: 90 3RF fexofenadine [Isaura Allergy] 180 mg Tablet 180 mg PO DAILY cranberry 400 mg Capsule 400 mg PO BID Rx Instructions: administer with meals multivitamin Capsule 1 cap PO DAILY fluticasone propionate [Flonase Allergy Relief] 50 mcg/actuation spray,suspension 2 spray INTRANASAL DAILY Qty: 16 6RF Referrals / Follow Up: Care PhysicianKaitlin Primary [Primary Care Provider] - Disposition Disposition (needs filled in before D/C Order can be placed): Home, Self Care
[2023-01-20 16:52] VITALS: BP 149/77; BP 163/102; PULSE 78; RESP 16; TEMP 36; O2SAT 94
[2023-01-20 17:00] VITALS: BP 146/86; BP 149/77; PULSE 74; RESP 18; O2SAT 98
[2023-01-20 17:15] VITALS: BP 149/77; BP 150/88; PULSE 67; RESP 18; O2SAT 95
[2023-01-20 17:25] VITALS: BP 145/82; BP 149/77; PULSE 63; RESP 18; TEMP 36.1; O2SAT 100
[2023-01-20 18:20] VITALS: BP 149/77
== END 2023-01-20 18:31 | disposition home or self-care (01) ==
LOC: SDC 13:11 → AC 13:12
PROVIDERS: Referring Provider Urology; Visit Provider Urology
PROC: (CPT 50590; principal; 2023-01-20 14:35)
DX: N20.0 Calculus of kidney (principal); J45.909 Unspecified asthma, uncomplicated; J30.2 Other seasonal allergic rhinitis; N13.30 Unspecified hydronephrosis
CPT/HCPCS: 50590; 52332; 00873; J7120; J2405

== ENCOUNTER → 2023-02-02 | Outpatient (CLI) | payer BC, SELFPAY ==
--- NOTE | 2023-02-02 13:18 | RAD_ITS ---
INDICATION: CALCULUS OF KIDNEY EXAMINATION/TECHNIQUE: X-RAY - XR Abdomen 1 View: 2 image AP abdomen COMPARISON: CT December 20, 2022 FINDINGS: BOWEL GAS PATTERN: Nonspecific non-obstructive bowel gas pattern. No focal stomach or bowel distention. FREE AIR: Not well assessed on a supine view. ORGANOMEGALY: Not seen. CALCIFICATIONS: Left renal lower pole cluster of calcifications suggestive of stone spanning an area of 1.7 cm. Double-J ureteral stent projects in the expected location left renal pelvis and bladder with 4 mm adjacent stone along the left ureteral pelvic junction. No suspicious calcifications seen along the expected right ureteral tract. Right inferior pelvic phlebolith noted. LOWER CHEST: No acute pathology. BONES AND SOFT TISSUES: No acute pathology. RAD/Abdomen Single View IMPRESSION: Left double-J ureteral stent in expected position with concern for 4 mm stone adjacent to the stent at the ureteropelvic junction. Cluster of additional stones project over left renal lower pole. Previously seen right ureteral pelvic junction stone is not appreciated by radiograph. CT could further evaluate as clinically indicated. Electronically Signed: Elías Sher MD at 6:16 EDT ,
== END | disposition home or self-care (01) ==
LOC: MTRAD 13:17
PROVIDERS: Referring Provider Urology; Visit Provider Urology
DX: N20.0 Calculus of kidney (principal)
CPT/HCPCS: 74018

== ENCOUNTER → 2023-02-18 | Outpatient (CLI) | payer BC, SELFPAY ==
--- NOTE | 2023-02-18 13:27 | RAD_ITS ---
STUDY: X-RAY - ABDOMEN/PELVIS REASON FOR EXAM: Female, 47 years old. KUB- KIDNEY STONES TECHNIQUE: Single AP view of the abdomen / pelvis. COMPARISON: Comparison is made with prior study dated February 02, 2023. FINDINGS: Normal visualized lung bases. There is a moderate amount of colonic fecal material. The left-sided double-J stent catheter has moved caudally. The proximal tip is now at the level of the superior left sacroiliac joint. The distal tip is coiled in the bladder. Stable calcifications in the lower pole calyx of the left kidney. Normal soft tissue structures. Normal visualized osseous structures. RAD/Abdomen Single View IMPRESSION: Stable calcifications in the lower pole calyx of the left kidney. The left double-J stent catheter has migrated currently as described. Electronically Signed: Samuel Ulrich MD at 14:10 EDT ,
== END | disposition home or self-care (01) ==
LOC: MTRAD 13:26
PROVIDERS: Referring Provider Urology; Visit Provider Urology
DX: N20.0 Calculus of kidney (principal)
CPT/HCPCS: 74018

== ENCOUNTER 2023-04-07 10:45 | Day surgery (SDC) | payer BC, SELFPAY ==
[2023-04-07] MEDS: Ciprofloxacin 400 MG/200 ML BAG 200 MG IV (11:27)
[2023-04-07] MEDS: Lactated Ringers 1,000 ML 15 ML IV ×2 (11:27→13:19)
[2023-04-07 11:29] VITALS: BP 134/84; PULSE 98; RESP 16; TEMP 36.7; O2SAT 96; BMI 48.9
[2023-04-07 13:11] VITALS: BP 134/84; BP 152/98; PULSE 72; RESP 14; TEMP 36.5; O2SAT 93
[2023-04-07 13:15] VITALS: BP 134/84; BP 145/93; PULSE 65; RESP 16; O2SAT 98
--- NOTE | 2023-04-07 13:26 | DCINST_ITS ---
Discharge Instructions Diet Discharge Diet: No restrictions Activity Discharge Activity: Return to Normal Activity Dressing / Incision Call your doctor if you observe: Fever of 101 or Higher, Inability to urinate and Inability to have a bowel movement Follow Up Care Please Follow Up With: Dali Biswas MD When: Next week for stent removal, the office will call the patient for arrangements Test Results: Test results from this visit will be discussed in further detail at your follow- up appointment, if applicable. Discharge Plan Admission Attending Provider: Dali Biswas Primary Care Provider: Zeinab Walton Discharge Orders/Prescriptions Prescriptions: New cephalexin [cephalexin] 500 mg capsule 500 mg PO Q12 3 Days Qty: 6 0RF Continued estradiol 1 mg tablet 1 mg PO DAILY albuterol sulfate 90 mcg/actuation HFA aerosol inhaler 2 puff INHALATION Q4H PRN (Reason: shortness of breath or wheezing) Qty: 18 3RF Breo Ellipta 200-25 mcg/dose blister with device 1 inh INHALATION Q24H Qty: 3 3RF fexofenadine [Isaura Allergy] 180 mg Tablet 180 mg PO DAILY cranberry 400 mg Capsule 400 mg PO BID Rx Instructions: administer with meals multivitamin Capsule 1 cap PO DAILY fluticasone propionate [Flonase Allergy Relief] 50 mcg/actuation spray,suspension 2 spray INTRANASAL DAILY Qty: 16 6RF montelukast 10 mg tablet 10 mg PO QPM Qty: 90 3RF Referrals / Follow Up: Zeinab Walton MD [Primary Care Provider] - Disposition Disposition (needs filled in before D/C Order can be placed): Home, Self Care
--- NOTE | 2023-04-07 13:27 | OP.PCM_ITS ---
Report of Operation Date of Procedure: 04/07/23 Pre-Operative Diagnosis: Left renal calculus Post-Operative Diagnosis: Same Surgery/Procedure Performed:: Cystoscopy, left ureteroscopy, holmium laser center lithotripsy, stone basket extraction, left ureteral stent insertion Surgeon: Dali Biswas Type of Anesthesia: General Specimen's removed: Stone fragments Description of Procedure: The patient is a 47-year-old female with a left renal calculus that has failed extracorporal shockwave lithotripsy. She now presents for ureteroscopy with laser lithotripsy, stone basket extraction and stent insertion. Informed consent was obtained. The patient was taken to the operating room and placed on the operating room table. Anesthesia monitored the head, neck, airway, IV access and vital signs throughout the case. Once anesthesia was appropriately administered, the patient was placed into dorsolithotomy position was prepped and draped in usual sterile fashion. The cystoscope was inserted through the urethra under direct visualization into the urinary bladder which was normal to visualization. The left ureteral orifice was identified. 2 separate 0.035 glide wires were gently passed through the left ureteral orifice into the renal pelvis is seen on fluoroscopy. 1 of these wires was used for placement of a ureteral access sheath which was done under fluoroscopic visualization. There is no difficulty with placement. At this time the flexible ureteroscope was inserted through the access sheath into the ureter and advanced to the renal pelvis without difficulty. The stone fragments were all gathered together in one location in the lower pole. A 200 ?m laser fiber was used to break the stone into smaller pieces which were then basket extracted using an engage basket. When the last of the stone fragments were removed, the ureteroscope was used to flush out each of the calyces. The ureteroscope was used for removal of the ureteral access sheath under direct visualization and there was no injury identified. At this time the indwelling safety wire was used for placement of a 4.5 Frisian 26 cm JJ stent which was seen in the renal pelvis as well as curling in the urinary bladder. The patient's bladder was then emptied. She was awakened and taken to the recovery room in good condition. The stone fragments were sent for analysis. Grafts/Implants Used: 4.5 x 26 cm JJ stent, the stent was slightly short Complications None Admit VTE Documentation VTE Present on Admission: Yes VTE Mechan Device Prophylaxis: SCD's VTE Pharm Prophylaxis ordered?: No Reason prophylaxis not ordered:: Treatment Not Indicated
[2023-04-07 13:30] VITALS: BP 134/84; BP 145/90; PULSE 60; RESP 16; O2SAT 100
[2023-04-07 13:46] VITALS: BP 134/84; BP 135/83; PULSE 65; RESP 16; TEMP 36.1; O2SAT 100
--- NOTE | 2023-04-07 14:35 | PCM.OPRPT ---
Report of Operation Date of Procedure: 04/07/23 Pre-Operative Diagnosis: Left renal calculus Post-Operative Diagnosis: Same
[2023-04-07 14:41] VITALS: BP 134/84; BP 159/92; PULSE 68; RESP 18; TEMP 36.6; O2SAT 98
[2023-04-14 09:15] LABS: Source Not Provided
== END 2023-04-07 15:12 | disposition home or self-care (01) ==
LOC: SDC 10:46 → AC 10:49
PROVIDERS: PCP Internal Medicine; Referring Provider Urology; Visit Provider Urology
PROC: (CPT 52356; principal; 2023-04-07 12:00)
DX: N20.0 Calculus of kidney (principal); J45.909 Unspecified asthma, uncomplicated; Z90.710 Acquired absence of both cervix and uterus; R10.9 Unspecified abdominal pain
CPT/HCPCS: 52356; 00918; 76000; 82360; J7120; J0744; J2405

== ENCOUNTER → 2023-05-11 | Outpatient (CLI) | payer BC, SELFPAY ==
[2023-05-11 16:03] LABS: Calcium,Total 11.2 mg/dL (8.5-10.1)
== END | disposition home or self-care (01) ==
PROVIDERS: PCP Internal Medicine; Referring Provider Urology; Visit Provider Urology
DX: E83.52 Hypercalcemia (principal)
CPT/HCPCS: 36415; 82310

== ENCOUNTER → 2023-05-30 | Outpatient (CLI) | payer BC, SELFPAY ==
[2023-05-30 10:44] LABS: PTHIN 114.8 pg/mL (18.4-80.1)
[2023-05-30 10:53] LABS: ALB/GLOB Ratio 0.7 RATIO (0.9-2.4); AST(SGOT) 12 U/L (15-37); Alanine Aminotransfer ALT/SGPT 19 U/L (13-56); Albumin, Serum 3.4 g/dL (3.2-5.0); Alkaline Phosphatase 71 U/L (45-117); Anion Gap 7 (5-15); BUN 14 mg/dL (7-18); BUN/Creat Ratio 18.9 RATIO (10-20); Calcium,Total 10.1 mg/dL (8.5-10.1); Chloride 107 mmol/L (98-107); Cholesterol 209 mg/dL (200); Creatinine, Serum 0.74 mg/dL (0.55-1.02); EST Glomerular Filtration Rate 89 mL/min (>60); Est Glom Filt Rate - Afr Amer 108 mL/min (>60); Globulin 4.7 g/dL (2.2-4.2); Glucose 97 mg/dL (74-106); High Density Lipoprotein 64 mg/dL; Potassium 4.1 mmol/L (3.5-5.1); Protein, Total 8.1 g/dL (6.4-8.2); Sodium Level 137 mmol/L (136-145); Triglycerides 184 mg/dL; Very Low Density Lipoprotein 37 mg/dL (5-40)
== END | disposition home or self-care (01) ==
LOC: LAB.FUTURE 07:35 → MTLAB 07:37
PROVIDERS: PCP Internal Medicine; Referring Provider Urology; Visit Provider Urology
DX: R82.994 Hypercalciuria (principal); E83.52 Hypercalcemia
CPT/HCPCS: 36415; 80053; 80061; 83970; 84443

== ENCOUNTER → 2023-06-09 | Outpatient (CLI) | payer BC, SELFPAY ==
[2023-06-09 15:55] LABS: Vitamin D,25 Hydroxy 29.9 ng/mL
== END | disposition home or self-care (01) ==
LOC: MTLAB 13:53
PROVIDERS: PCP Internal Medicine; Visit Provider Internal Medicine
DX: R79.89 Other specified abnormal findings of blood chemistry (principal); E83.52 Hypercalcemia
CPT/HCPCS: 36415; 82306

== ENCOUNTER → 2023-08-03 | Outpatient (CLI) | payer BC, SELFPAY ==
--- NOTE | 2023-08-03 12:51 | CT_ITS ---
STUDY: CT FACIAL BONES WITHOUT CONTRAST REASON FOR EXAM: Female, 47 years old. SINUSITIS RADIATION DOSAGE (If Supplied By Facility): CTDIvol = ( 33.06 ) mGy, DLP = ( 904.09 ) mGycm TECHNIQUE: The patient was scanned in a multi detector CT scanner. Sagittal and coronal images were reconstructed. Individualized dose optimization techniques were used for this CT. COMPARISON: None. FINDINGS: Normal soft tissue structures. Normal orbital oseguera and orbital contents. Normal nasal bones and anterior nasal spine. Normal facial bones. There is no demonstrated fracture. Partial opacification of the maxillary sinuses. Compromise of the ostiomeatal complex bilaterally due to mucosal hypertrophy. Nasal septal deviation towards the right side of the midline. CT/Sinus/Facial Bone IMPRESSION: Partial opacification of the maxillary sinus bilaterally with compromise of the ostiomeatal complexes due to mucosal hypertrophy. Nasal septal deviation towards the right side of the midline. Electronically Signed: Samuel Ulrich MD at 13:58 EST ,
== END | disposition home or self-care (01) ==
LOC: CT 12:47
PROVIDERS: PCP Internal Medicine; Referring Provider Otolaryngology; Visit Provider Otolaryngology
DX: J32.8 Other chronic sinusitis (principal)
CPT/HCPCS: 70486

== ENCOUNTER → 2023-11-05 | Outpatient (CLI) | payer BC, SELFPAY ==
--- OUTSIDE RECORDS SUMMARY | 2023-11-05 08:40 | XMS RPT_ITS | CCD ---
Author Name Unknown Address [id number] [place] [address] Organization [facility] Care Team Providers Care Auditor Medical Claims Name Role Phone Unavailable Primary Care Provider Unavailabl e HARRIET, GINETTE Referring Unavailable HARRIET, GINETTE Attending Unavailable HARRIET, GINETTE Referring Unavailable Unavailable Primary Care Provider Unavailabl e Allergies Allergy Classification Reported Allergen(s) Allergy Type Date of Onset Reaction(s) Facility (9 sources) Codeine; Translations: [CODEINE] Drug Allergy 10-05-2005 [facility] Work Phone: (4 sources) Penicillins; Translations: [PENICILLINS] Drug Allergy 03-30-2021 Diarrhea, Other: See Comments [facility] Medications Completed/Discontinued Medications Medication Drug Class(es) Dates Sig (Normalized) Sig (Original) [id number] 200 actuat albuterol 0.09 mg/actuat metered dose inhaler (8 sources) beta2-Adrenergic Agonist Start: 12-26-2018 take 2 puff(s) by inhalation every four hours as needed for wheezing albuterol HFA (VENTOLIN HFA) 90 mcg/actuation inhaler Indications: Bronchitis Inhale 2 Puffs as instructed every 4 hours as needed for Wheezing/Shortnes s of Breath. 1 Inhaler 1 12/26/2018 Active Problems Active Problems Problem Classification Problem Date Documented Date Episodic/Chronic Complications of surgical procedures or medical care (4 sources) Postablative ovarian failure; Translations: [Asymptomatic postprocedural ovarian failure] Onset: 05-18-2023 Chronic Other screening for suspected conditions (not mental disorders or infectious disease) (9 sources) Patient encounter status; Translations: [Encounter for screening mammogram for malignant neoplasm of breast] Onset: 02-18-2023 Episodic Past or Other Problems Problem Classification Problem Date Documented Da te Episodic/Chronic Residual codes; unclassified (8 sources) History of total hysterectomy with bilateral salpingo-oophorecto my; Translations: [Acquired absence of both cervix and uterus] Onset: 07-07-2012 07-07-2012 Episodic Residual codes; unclassified (8 sources) History of estrogen therapy; Translations: [Personal history of estrogen therapy] Onset: 07-07-2012 07-07-2012 Episodic Skin and subcutaneous tissue infections (8 sources) Carbuncle; Translations: [Furuncle, unspecified] Onset: 10-17-2007 10-17-2007 Episodic Results Test Name Value Interpretation Reference Range Facil ity Vital Signs Date Time Vital Sign Value Performing Clinician Faci lity 02-18-2023 12:50-0400 Body height 170.2 cm Ginette Chassell DIRECTOR OF MEDICAL SERVICES.PANTRY CHEF Work Phone: [facility] 02-18-2023 12:50-0400 Body weight 145.15 kg Ginette Chassell DIRECTOR OF MEDICAL SERVICES.PANTRY CHEF Work Phone: [facility] 02-18-2023 12:50-0400 Diastolic blood pressure 86 mm[Hg] Ginette Harriet DIRECTOR OF MEDICAL SERVICES.PANTRY CHEF Work Phone: [facility] 02-18-2023 12:50-0400 Systolic blood pressure 134 mm[Hg] Ginette Harriet DIRECTOR OF MEDICAL SERVICES.PANTRY CHEF Work Phone: [facility] 01-28-2022 07:53-0400 Body height 168.9 cm Ginette Chassell DIRECTOR OF MEDICAL SERVICES.PANTRY CHEF Work Phone: [facility] 01-28-2022 07:53-0400 Body weight 148.42 kg Ginette Harriet DIRECTOR OF MEDICAL SERVICES.PANTRY CHEF Work Phone: [facility] 01-28-2022 07:53-0400 Diastolic blood pressure 80 mm[Hg] Ginette Harriet DIRECTOR OF MEDICAL SERVICES.PANTRY CHEF Work Phone: [facility] 01-28-2022 07:53-0400 Systolic blood pressure 128 mm[Hg] Ginette Chassell DIRECTOR OF MEDICAL SERVICES.PANTRY CHEF Work Phone: [facility] Encounters Encounter Date Encounter Type Care Provider Facility Start: 05-18-2023 End: 05-18-2023 ambulatory GINETTE LARIOS Facility:[facility] Start: 05-18-2023 End: 05-18-2023 Subsequent hospital visit by physician Bone Density [facility] Work Phone: Radiology Procedures Date Procedure Procedure Detail Performing Clinician Start: 05-18-2023 Dxa bone density carol dy 1/> sites axial skel Ginette Romerof DIRECTOR OF MEDICAL SERVICES.PANTRY CHEF Work Phone: Start: 02-18-2023 Screening mammograph y bi 2-view breast inc cad Ginette Romerof DIRECTOR OF MEDICAL SERVICES.PANTRY CHEF Work Phone: Start: 01-28-2022 End: 01-28-2022 Mammography Ginette Lackeycalf DIRECTOR OF MEDICAL SERVICES.C CARE TEAM ASSISTANT Work Phone: Start: 11-27-2020 Mammography [facility] DIRECTOR OF MEDICAL SERVICES.PANTRY CHEF Work Phone: Start: 12-26-2018 Adult depression scr eening assessment Ginette Chassell DIRECTOR OF MEDICAL SERVICES.PANTRY CHEF Work Phone: Start: 03-17-2016 Lipid 1996 panel - S caleb or Plasma Screen Wstr Plan of Treatment Date Care Activity Detail Author Start: 02-19-2024 Mammography Mammogram Screening [facility] Start: 05-20-2023 Covid-19 Vaccine ( season) Covid-19 Vaccine ( season) [facility] Start: 05-20-2023 Influenza vaccination [facility] Start: 01-28-2023 Mammography MAMMOGRAM [facility] Start: 09-19-2022 DEPRESSION ASSESSMENT DEPRESSION ASSESSMENT [facility] Start: 05-20-2022 Influenza vaccination INFLUENZA (Season Ended) [facility] Start: 11-27-2021 Mammography MAMMOGRAM [facility] Start: 03-17-2021 Lipid 1996 panel - Serum or Plasma Lipid Screening [facility] Start: 03-17-2021 LIPID SCREEN LIPID SCREEN [facility] Start: 12-18-2020 COLOGUARD (FIT-DNA) COLOGUARD (FIT-DNA) [facility] Start: 12-18-2020 Colonoscopy COLONOSCOPY [facility] Start: 04-01-2021 COLORECTAL CANCER SCREENING COLORECTAL CANCER SCREENING [facility] Start: 12-18-[address] COLONOGRAPHY [facility] Start: 12-18-2020 DIABETES SCREEN DIABETES SCREEN [facility] Start: 12-18-2020 Diabetes Screening Diabetes Screening [facility] Start: 12-18-2020 FECAL OCCULT BLOOD FECAL OCCULT BLOOD [facility] Start: 12-18-2020 SIGMOIDOSCOPY SIGMOIDOSCOPY [facility] Start: 12-27-2019 Adult depression screening assessment DEPRESSION SCREENING [facility] Start: 09-16-2017 Urine microalbumin profile [facility] Start: 12-18-1993 HEPATITIS C SCREENING HEPATITIS C SCREENING [facility] Start: 12-18-1993 HIV SCREENING HIV SCREENING [facility] Start: 12-18-1980 COVID-19 VACCINE (#1) COVID-19 VACCINE (#1) [facility] Start: 12-18-1980 COVID-19 VACCINE (1) COVID-19 VACCINE (1) [facility] Start: 06-19-1976 COVID-19 VACCINE (#1) COVID-19 VACCINE (#1) [facility] Start: 1975 HEPATITIS B (1 of 3 - 3-dose series) HEPATITIS B (1 of 3 - 3-dose series) [facility] Start: 1975 Hepatitis B Vaccine (1 of 3 - 3-dose series) Hepatitis B Vaccine (1 of 3 - 3-dose series) [facility] End: 03-19-2024 DXA-AXIAL SKELETON DXA-AXIAL SKELETON Radiology Routine Premature surgical menopause Encounter for screening for osteoporosis 1 Occurrences starting 02/18/2023 until 03/19/2024 [facility] Work Phone: Immunizations Immunization Date Immunization Notes Care Provider Nicholas bentley 07-29-2022 influenza virus vaccine, unspecified formulation Screen Wstr [facility] 09-16-2007 tetanus toxoid, redu trupti diphtheria toxoid, and acellular pertussis vaccine, adsorbed Ginette Harriet DIRECTOR OF MEDICAL SERVICES.PANTRY CHEF Work Phone: [facility] Work Phone: Payers Date Payer Category Payer Unknown BRADLY MICHEL PPO [id number] 2020-Present [phone] [facility] [id number] [place] [address] PPO [id number] 2020 Unknown BRADLY MICHEL PPO [id number] 2020-Present [phone] [address] [place] [address] PPO [id number] 2020 Unknown [id number] Social History Date Type Detail Facility Start: 08-15-2013 Tobacco smoking stat us NHIS Never smoked tobacco [facility] Start: 03-30-2021 End: 02-18-2023 Alcohol intake Current non-drinker of alcohol (finding) [facility] Start: 11-27-2020 History SDOH Social Connections Phone 5 [facility] Start: 11-27-2020 History SDOH Social Connections Get Together 2 [facility] Start: 11-27-2020 History SDOH Social Connections Druze 1 [facility] Start: 11-27-2020 History SDOH Social Connections Living 3 [facility] Start: 11-27-2020 History SDOH Physica l Activity DPW 0 [facility] Start: 1975 Sex Assigned At Not on file C [facility] Start: 01-18-2022 End: 01-28-2022 Exposure to SARS-CoV-2 (event) Not sure [facility] Start: 08-15-2013 Tobacco use and exposure Smoke less tobacco non-user [facility] Start: 11-27-2020 End: 02-18-2023 History of Social function [facility] Work Phone: Start: 11-27-2020 End: 02-18-2023 Social connection and isolation panel [facility] Work Phone: Do you belong to any clubs or organizations such as moravian groups, unions, fraternal or athletic groups, or school groups? No [facility] Work Phone: Are you now , , , , never or living with a partner? [facility] Work Phone: Adult Depression Scr eening Assessment 0 [facility] Do you feel stress - tense, restless, nervous, or anxious, or unable to sleep at night because your mind is troubled all the time - these days [OSQ] To some extent [facility] Work Phone: Clinical Notes 01-28-2022 to 05-18-2023 Matias Mejia RT(R) - 05/18/2023 3:00 PM Marium Larios APRN.CYNDEE - 02/18/2023 12:46 PM Vanessa Pires RT(R) - 02/18/2023 12:30 PM Marium Larios APRN.CNP - 01/28/2022 7:53 AM EDT Note Date & Type Note Facility 05-18-2023 Note HNO ID: [id number] Author: Matias Mejia RT(R) Service: ? Author Type: Technologist Type: Progress Notes Filed: 05/18/2023 3:21 PM Note Text: Radiology Service Progress Note PATIENT NAME: Brenda Alcazar DATE OF SERVICE: May 18, 2023 TIME: 3:13 PM PATIENT IDENTITY VERIFICATION COMPLETED USING TWO (2) IDENTIFIERS: Name and Date of confirmed by patient verbally. FALL SCREENING: Has the patient had 2 falls in the last year or 1 fall with injury or currently using an Ambulatory Assistive Device (Walker, Cane, Wheelchair, Crutches, etc.)? No PATIENT GENDER DATA: Female. status: : No status: NO. PATIENT RELEVANT IMPLANT DATA REVIEWED: Not Applicable RADIOLOGY DEPARTMENT: Bone Density PERIPHERAL IV DATA: Not applicable SIGNED BY: RT Barbara(R) May 18, 2023 3:13 PM [facility] 05-18-2023 History of Presen t illness Narrative Radiology Service Progress Note PATIENT NAME: Brenda Alcazar DATE OF SERVICE: May 18, 2023 TIME: 3:13 PM PATIENT IDENTITY VERIFICATION COMPLETED USING TWO (2) IDENTIFIERS: Name and Date of confirmed by patient verbally. FALL SCREENING: Has the patient had 2 falls in the last year or 1 fall with injury or currently using an Ambulatory Assistive Device (Walker, Cane, Wheelchair, Crutches, etc.)? No PATIENT GENDER DATA: Female. status: : No status: NO. PATIENT RELEVANT IMPLANT DATA REVIEWED: Not Applicable RADIOLOGY DEPARTMENT: Bone Density PERIPHERAL IV DATA: Not applicable SIGNED BY: RT Barbara(R) May 18, 2023 3:13 PM documented in this encounter [facility] 02-18-2023 Note HNO ID: [id number] Author: Ginette Larios APRN.PANTRY CHEF Service: ? Author Type: Nurse Practitioner Type: Progress Notes Filed: 02/18/2023 1:16 PM Note Text: Coding Assistant offered: Patient declinesSilvano Gutierrez is a 47 year old who presents for an annual gynecologic exam without complaints. Menses: no menses - postmenopausal. 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: Yes; Male; total abdominal hysterectomy Contraception: Surgical PAST MEDICAL HISTORY Diagnosis Date Asthma Endometriosis PAST SURGICAL HISTORY Procedure Laterality Date KIDNEY STONE SURGERY HX Bilateral x 2 with stent placement TONSILLECTOMY AND ADENOIDECTOMY TOTAL ABDOMINAL HYSTERECT W/WO RMVL TUBE OVARY 11/24/2006 Hysterectomy, NAZIA BSO FAMILY HISTORY Problem Relation Age of Onset No Known Problems Mother No Known Problems Father No Known Problems Sister Cancer Maternal Grandfather [place], [place], CVA Stroke Paternal Grandfather No Known Problems Daughter No Known Problems Son SOCIAL HISTORY Social History Tobacco Use Smoking status: Never Smokeless tobacco: Never Vaping Use Vaping Use: Never used Substance Use Topics Alcohol use: No Drug use: No REVIEW OF SYSTEMS Abdomen: No abdominal pain, nausea, vomiting, diarrhea, or constipation. No bloating, early satiety, indigestion, or increased flatulence. Bladder: No dysuria, gross hematuria, urinary frequency, urinary urgency, or incontinence. Current kidney stones Breast: No breast lumps, nipple d/c, overlying skin changes, redness or skin retraction. Allergies and current medication updated:Yes EXAM: BP 134/86 Ht 5' 7 (1.70m) Wt 320 lb (145.2kg) LMP 10/23/2006 BMI 50.11 kg/(m2). GENERAL: pleasant, female in no apparent distress HEENT: Normocephalic, atraumatic, mucus membranes moist, and no lesions NECK: Supple, full range of motion, no adenopathy, and thyroid normal DERMATOLOGY: Normal, without lesions, non-icteric, and non-hirsute BREAST: soft, non-tender, symmetric, no dominant mass, normal nipple-areolar complex, no lymphadenopathy, and no nipple discharge CHEST: Normal inspiratory effort ABDOMEN: soft, non-tender, and no masses PELVIC: external genitalia normal, normal Bartholin's glands, urethra, Comfrey's glands, no vulvar lesions, physiologic discharge present, normal appearing perineal body and perianal region, cervix surgically absent BIMANUAL: no adnexal masses, non-tender, and uterus surgically absent RECTOVAGINAL: deferred. NEURO: alert and oriented x3,exam grossly non-focal EXTREMITIES: normal ASSESSMENT/PLAN: 1) Health maintenance: Mammogram up to date . Nutrition, exercise and routine health maintenance exams reviewed. Calcium/Vitamin D supplementation information provided. 2) Contraception: hysterectomy. Contraceptive options reviewed and information provided. 3) STD screening: Declined STD check. 4) Follow up one year or sooner as needed Ginette Larios APRN.[facility] 02-18-2023 Note HNO ID: [id number] Author: RT Isela(R) Service: ? Author Type: Technologist Type: Progress Notes Filed: 02/18/2023 12:25 PM Note Text: Radiology Service Progress Note PATIENT NAME: Brenda Alcazar DATE OF SERVICE: February 18, 2023 TIME: 12:24 PM PATIENT IDENTITY VERIFICATION COMPLETED USING TWO (2) IDENTIFIERS: Name and Date of confirmed by patient verbally. FALL SCREENING: Has the patient had 2 falls in the last year or 1 fall with injury or currently using an Ambulatory Assistive Device (Walker, Cane, Wheelchair, Crutches, etc.)? No PATIENT GENDER DATA: Female. status: : No status: NO. PATIENT RELEVANT IMPLANT DATA REVIEWED: Not Applicable RADIOLOGY DEPARTMENT: Mammography PERIPHERAL IV DATA: Not applicable SIGNED BY: RT Isela(R) February 18, 2023 12:24 PM [facility] 02-18-2023 History of Presen t illness Narrative Coding Assistant offered: Patient declines. Brenda is a 47 year old who presents for an annual gynecologic exam without complaints. Menses: no menses - postmenopausal. 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: Yes; Male; total abdominal hysterectomy Contraception: Surgical PAST MEDICAL HISTORY Diagnosis Date Asthma Endometriosis PAST SURGICAL HISTORY Procedure Laterality Date KIDNEY STONE SURGERY HX Bilateral x 2 with stent placement TONSILLECTOMY & ADENOIDECTOMY <AGE 12 TOTAL ABDOMINAL HYSTERECT W/WO RMVL TUBE OVARY 11/24/2006 Hysterectomy, NAZIA BSO FAMILY HISTORY Problem Relation Age of Onset No Known Problems Mother No Known Problems Father No Known Problems Sister Cancer Maternal Grandfather [place], [place], CVA Stroke Paternal Grandfather No Known Problems Daughter No Known Problems Son SOCIAL HISTORY Social History Tobacco Use Smoking status: Never Smokeless tobacco: Never Vaping Use Vaping Use: Never used Substance Use Topics Alcohol use: No Drug use: No REVIEW OF SYSTEMS Abdomen: No abdominal pain, nausea, vomiting, diarrhea, or constipation. No bloating, early satiety, indigestion, or increased flatulence. Bladder: No dysuria, gross hematuria, urinary frequency, urinary urgency, or incontinence. Current kidney stones Breast: No breast lumps, nipple d/c, overlying skin changes, redness or skin retraction. Allergies and current medication updated:Yes EXAM: BP 134/86 Ht 5' 7 (1.70m) Wt 320 lb (145.2kg) LMP 10/23/2006 BMI 50.11 kg/(m^2). GENERAL: pleasant, female in no apparent distress HEENT: Normocephalic, atraumatic, mucus membranes moist, and no lesions NECK: Supple, full range of motion, no adenopathy, and thyroid normal DERMATOLOGY: Normal, without lesions, non-icteric, and non-hirsute BREAST: soft, non-tender, symmetric, no dominant mass, normal nipple-areolar complex, no lymphadenopathy, and no nipple discharge CHEST: Normal inspiratory effort ABDOMEN: soft, non-tender, and no masses PELVIC: external genitalia normal, normal Bartholin's glands, urethra, Comfrey's glands, no vulvar lesions, physiologic discharge present, normal appearing perineal body and perianal region, cervix surgically absent BIMANUAL: no adnexal masses, non-tender, and uterus surgically absent RECTOVAGINAL: deferred. NEURO: alert and oriented x3,exam grossly non-focal EXTREMITIES: normal ASSESSMENT/PLAN: 1) Health maintenance: Mammogram up to date . Nutrition, exercise and routine health maintenance exams reviewed. Calcium/Vitamin D supplementation information provided. 2) Contraception: hysterectomy. Contraceptive options reviewed and information provided. 3) STD screening: Declined STD check. 4) Follow up one year or sooner as needed Ginette Larios APRN.CYNDEE documented in this encounter [facility] 02-18-2023 History of Presen t illness Narrative Radiology Service Progress Note PATIENT NAME: Brenda Alcazar DATE OF SERVICE: February 18, 2023 TIME: 12:24 PM PATIENT IDENTITY VERIFICATION COMPLETED USING TWO (2) IDENTIFIERS: Name and Date of confirmed by patient verbally. FALL SCREENING: Has the patient had 2 falls in the last year or 1 fall with injury or currently using an Ambulatory Assistive Device (Walker, Cane, Wheelchair, Crutches, etc.)? No PATIENT GENDER DATA: Female. status: : No status: NO. PATIENT RELEVANT IMPLANT DATA REVIEWED: Not Applicable RADIOLOGY DEPARTMENT: Mammography PERIPHERAL IV DATA: Not applicable SIGNED BY: RT Isela([place]) February 18, 2023 12:24 PM documented in this encounter [facility] 01-28-2022 Miscellaneous Notes Refill request received from pharmacy. Patient seen in the office today for annual exam. Jessica Jacobs RN documented in this encounter [facility] 01-28-2022 Miscellaneous Notes January 28, 2022 PID: [id number] Brenda Alcazar [address] [place] [address] Dear Ms. Alcazar, We are pleased to inform you that the results of your recent breast imaging exam on 01/28/2022 are normal. Early detection of cancer is very important. We also understand recommendations regarding breast cancer screening are controversial. Please discuss with your primary care provider which strategy is best for you and whether a mammogram is right for you. Your imaging studies and report will be kept on file at [facility] as part of your permanent medical record and are available for your continuing care. Thank you for allowing us to help in meeting your health care needs. Sincerely, Dr. Carey Interpreting Radiologist [facility] (Normal over 40) documented in this encounter [facility] 01-28-2022 History of Presen t illness Narrative Brenda is a 46 year old who presents for an annual gynecologic exam without complaints. Menses: no menses - postmenopausal. Contraception: hysterectomy HPV vaccine: No Last Pap: 2005 normal HPV: negative History of abnormal pap: No Last mammogram: 2021 normal Sexually active: Yes Patient concerns for STD exposure: No. 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: Sexual Activity: Yes; Male; total abdominal hysterectomy Contraception: Surgical PAST MEDICAL HISTORY Diagnosis Date Asthma Endometriosis PAST SURGICAL HISTORY Procedure Laterality Date TONSILLECTOMY & ADENOIDECTOMY <AGE 12 TOTAL ABDOMINAL HYSTERECT W/WO RMVL TUBE OVARY 11/24/2006 Hysterectomy, NAZIA BSO FAMILY HISTORY Problem Relation Age of Onset No Known Problems Mother No Known Problems Father No Known Problems Sister Cancer Maternal Grandfather [place], [place], CVA Stroke Paternal Grandfather No Known Problems Daughter No Known Problems Son SOCIAL HISTORY Social History Tobacco Use Smoking status: Never Smoker Smokeless tobacco: Never Used Vaping Use Vaping Use: Never used Substance Use Topics Alcohol use: No Drug use: No REVIEW OF SYSTEMS Abdomen: No abdominal pain, nausea, vomiting, diarrhea, or constipation. No bloating, early satiety, indigestion, or increased flatulence. Bladder: No dysuria, gross hematuria, urinary frequency, urinary urgency, or incontinence. Breast: No breast lumps, nipple d/c, overlying skin changes, redness or skin retraction. Allergies and current medication updated:Yes EXAM: Ht 5' 6.5 (1.69m) Wt 327 lb 3.2 oz (148.4kg) LMP 10/23/2006 BMI 52.03 kg/(m^2). GENERAL: pleasant, female in no apparent distress HEENT: Normocephalic, atraumatic, mucus membranes moist and no lesions NECK: Supple, full range of motion, no adenopathy and thyroid normal DERMATOLOGY: Normal, without lesions, non-icteric and non-hirsute BREAST: soft, non-tender, symmetric, no dominant mass, normal nipple-areolar complex, no lymphadenopathy and no nipple discharge CHEST: Normal inspiratory effort ABDOMEN: soft, non-tender and no masses PELVIC: external genitalia normal, normal Bartholin's glands, urethra, Comfrey's glands, no vulvar lesions, physiologic discharge present, normal appearing perineal body and perianal region, cervix surgically absent BIMANUAL: no adnexal masses, non-tender and uterus surgically absent RECTOVAGINAL: deferred. NEURO: alert and oriented x3,exam grossly non-focal EXTREMITIES: normal ASSESSMENT/PLAN: 1) Health maintenance: Pap/HPV up to date. Mammogram up to date . Nutrition, exercise and routine health maintenance exams reviewed. 2) Contraception: hysterectomy. Contraceptive options reviewed and information provided. 3) STD screening: Declined STD check. 4) Follow up one year or sooner as needed Ginette Larios APRN.CNP documented in this encounter [facility] 01-28-2022 History of Presen t illness Narrative Radiology Service Progress Note PATIENT NAME: Brenda Alcazar DATE OF SERVICE: January 28, 2022 TIME: 7:30 AM PATIENT IDENTITY VERIFICATION COMPLETED USING TWO (2) IDENTIFIERS: Name and Date of confirmed by patient verbally. FALL SCREENING: Has the patient had 2 falls in the last year or 1 fall with injury or currently using an Ambulatory Assistive Device (Walker, Cane, Wheelchair, Crutches, etc.)? No PATIENT GENDER DATA: Female. status: : No status: NO. PATIENT RELEVANT IMPLANT DATA REVIEWED: Not Applicable RADIOLOGY DEPARTMENT: Mammography PERIPHERAL IV DATA: Not applicable SIGNED BY: RT Ewelina(R) January 28, 2022 7:30 AM documented in this encounter [facility] Encounter for gynecological examination (general) (routine) without abnormal findings- Primary Encounter for screening mammogram for breast cancer [facility] Diagnosis Premature surgical menopause Postablative ovarian failure [facility] Diagnosis Encounter for screening mammogram for malignant neoplasm of breast Other screening mammogram [facility] Diagnosis Encounter for gynecological examination (general) (routine) without abnormal findings- Primary Encounter for screening mammogram for breast cancer Premature surgical menopause Postablative ovarian failure Encounter for screening for osteoporosis Special screening for osteoporosis [facility] Diagnosis Encounter for screening mammogram for breast cancer [facility] Diagnosis Premature surgical menopause Postablative ovarian failure Encounter for screening for osteoporosis Special screening for osteoporosis [facility] Diagnostic Procedure Only (Routine) - Pending Review Specialty Diagnoses / Procedures Referred By Dustin shanks Referred To Contact [facility] Diagnoses Encounter for screening mammogram for malignant neoplasm of breast Procedures BENTLEY SCREENING SCREENING MAMMOGRAPHY BI 2-VIEW BREAST INC CAD HarrietGinette APRN.PANTRY CHEF [address] [place] [address] [facility] [address] [place] [address] Referral ID Status Reason Start Date Expiration Date Visits Requested Visits Authorized [id number] Pending Review Auto-Generat ed Referral 01/25/2022 02/21/2023 1 1 [facility] for referral (narrative)* Diagnostic Procedure Only (Routine) - Pending Review Specialty Diagnoses / Procedures Referred By Dustin t Referred To Contact [facility] Diagnoses Encounter for screening mammogram for breast cancer Procedures BENTLEY SCREENING SCREENING MAMMOGRAPHY BI 2-VIEW BREAST INC [facility] Ginette Larios APRN.PANTRY CHEF [address] [place] [address] [facility] [address] [place] [address] Referral ID Status Reason Start Date Expiration Date Visits Requested Visits Authorized [id number] Pending Review Auto-Generat ed Referral 01/28/2022 02/27/2023 1 1 [facility] for referral (narrative)* Diagnostic Procedure Only (Routine) - Closed Specialty Diagnoses / Procedures Referred By Dustin t Referred To Contact [facility] Diagnoses Encounter for screening mammogram for malignant neoplasm of breast Procedures BENTLEY SCREENING SCREENING MAMMOGRAPHY BI 2-VIEW BREAST INC CAD ChassellGinette, DIRECTOR OF MEDICAL SERVICES.PANTRY CHEF [address] [place] [address] [facility] [address] [place] [address] Referral ID Status Reason Start Date Expiration Date V isits Requested Visits Authorized [id number] Closed Auto-Generate d Referral 01/25/2022 02/21/2023 1 1 [facility] for referral (narrative)* Diagnostic Procedure Only (Routine) - Pending Review Specialty Diagnoses / Procedures Referred By Contac t Referred To Contact [facility] Diagnoses Encounter for screening mammogram for breast cancer Procedures BENTLEY SCREENING SCREENING MAMMOGRAPHY BI 2-VIEW BREAST INC CAD ChassellGinette APRN.PANTRY CHEF [address] [place] [address] [facility] [address] [place] [address] Referral ID Status Reason Start Date Expiration Date Visits Requested Visits Authorized [id number] Pending Review Auto-Generat ed Referral 02/18/2023 03/19/2024 1 1 [facility] for referral (narrative)* Diagnostic Procedure Only (Routine) - Closed Specialty Diagnoses / Procedures Referred By Dustin t Referred To Contact [facility] Diagnoses Encounter for screening mammogram for breast cancer Procedures BENTLEY SCREENING SCREENING MAMMOGRAPHY BI 2-VIEW BREAST INC CAD ChassellGinette DIRECTOR OF MEDICAL SERVICES.PANTRY CHEF [address] [place] [address] [facility] [address] [place] [address] Referral ID Status Reason Start Date Expiration Date V isits Requested Visits Authorized [id number] Closed Auto-Generate d Referral 01/28/2022 02/27/2023 1 1 [facility] for visit Narrative* Diagnostic Procedure Only (Routine) - Closed Specialty Diagnoses / Procedures Referred By Contac t Referred To Contact [facility] Diagnoses Encounter for screening mammogram for malignant neoplasm of breast Procedures BENTLEY SCREENING SCREENING MAMMOGRAPHY BI 2-VIEW BREAST INC CAD ChassellGinette APRN.PANTRY CHEF [address] [place] [address] [facility] [address] [place] [address] Referral ID Status Reason Start Date Expiration Date V isits Requested Visits Authorized [id number] Closed Auto-Generate d Referral 01/25/2022 02/21/2023 1 1 [facility]* Diagnostic Procedure Only (Routine) - Closed Specialty Diagnoses / Procedures Referred By Dustin t Referred To Contact [facility] Diagnoses Encounter for screening mammogram for breast cancer Procedures BENTLEY SCREENING SCREENING MAMMOGRAPHY BI 2-VIEW BREAST INC CAD Harriet Ginette, DIRECTOR OF MEDICAL SERVICES.PANTRY CHEF [address] [place] [address] [facility] [address] [place] [address] Referral ID Status Reason Start Date Expiration Date V isits Requested Visits Authorized [id number] Closed Auto-Generate d Referral 01/28/2022 02/27/2023 1 1 [facility] Summary Purpose Family History No Family History Records Found Advance Directives No Advanced Directives Records Found Additional Source Comments Source Comments (unrecognize d section and content) In the event this informatio n is protected by the Federal Confidentiality of Alcohol and Drug Abuse Patient Records regulations: The Federal rules restrict any use of the information to criminally investigate or prosecute any alcohol or drug abuse patient.[facility] the event this information is protected by the Federal Confidentiality of Alcohol and Drug Abuse Patient Records regulations: The Federal rules restrict any use of the information to criminally investigate or prosecute any alcohol or drug abuse patient.[facility] the event this information is protected by the Federal Confidentiality of Alcohol and Drug Abuse Patient Records regulations: The Federal rules restrict any use of the information to criminally investigate or prosecute any alcohol or drug abuse patient.[facility] the event this information is protected by the Federal Confidentiality of Alcohol and Drug Abuse Patient Records regulations: The Federal rules restrict any use of the information to criminally investigate or prosecute any alcohol or drug abuse patient.[facility] the event this information is protected by the Federal Confidentiality of Alcohol and Drug Abuse Patient Records regulations: The Federal rules restrict any use of the information to criminally investigate or prosecute any alcohol or drug abuse patient.[facility] the event this information is protected by the Federal Confidentiality of Alcohol and Drug Abuse Patient Records regulations: The Federal rules restrict any use of the information to criminally investigate or prosecute any alcohol or drug abuse patient.[facility] the event this information is protected by the Federal Confidentiality of Alcohol and Drug Abuse Patient Records regulations: The Federal rules restrict any use of the information to criminally investigate or prosecute any alcohol or drug abuse patient.[facility] the event this information is protected by the Federal Confidentiality of Alcohol and Drug Abuse Patient Records regulations: The Federal rules restrict any use of the information to criminally investigate or prosecute any alcohol or drug abuse patient.[facility] Reason for Visit (unrecogniz ed section and content) Reason Comments Refill Request Reason Comments Yearly Exam INFORMATION SOURCE (unrecogn ized section and content) FOR RECORDS PERTAINING TO PATIENTS WHO ARE OR HAVE BEEN ENROLLED IN A CHEMICAL DEPENDENCY/SUBSTANCEABUSE PROGRAM, SOME INFORMATION MAY BE OMITTED. This clinical summary was aggregated from multiple sources. Caution should be exercised in using it in the provision of clinical care. This summary normalizes information from multiple sources, and as a consequence, information in this document may materially change the coding, format and clinical context of patient data. In addition, data may be omitted in some cases. CLINICAL DECISIONS SHOULD BE BASED ON THE PRIMARY CLINICAL RECORDS. [employer] [facility]. provides no warranty or guarantee of the accuracy or completeness of information in this document.
[2023-11-05 09:08] LABS: Ionized Calcium 5.53 mg/dL (4.36-5.20)
[2023-11-05 09:20] LABS: Calcium,Total 11.5 mg/dL (8.5-10.1)
[2023-11-07 08:27] LABS: PTHIN 98.6 pg/mL (18.4-80.1)
[2023-11-07 08:29] LABS: Vitamin D,25 Hydroxy 30.9 ng/mL
== END | disposition home or self-care (01) ==
PROVIDERS: PCP Internal Medicine; Referring Provider Internal Medicine Endocrinology, Diabetes & Metabolism; Visit Provider Internal Medicine Endocrinology, Diabetes & Metabolism
DX: E21.3 Hyperparathyroidism, unspecified (principal); N20.0 Calculus of kidney; E55.9 Vitamin D deficiency, unspecified
CPT/HCPCS: 36415; 82306; 82310; 82330; 83970

== ENCOUNTER → 2023-11-30 | Outpatient (CLI) | payer BC, SELFPAY ==
--- NOTE | 2023-11-30 09:46 | NM_ITS ---
CLINICAL: 47-year-old female with history of clinical hyperparathyroidism. 99m Tc SESTAMIBI DUAL PHASE PARATHYROID SCINTIGRAPHY COMPARISON: None available FINDINGS: Following the intravenous administration of 25.4 mCi of 99m Tc sestamibi, image acquisitions of the anterior neck at 15 minutes and approximately 3.0 hours post radiopharmaceutical provision reveal: 1. Immediate static blood pool acquisitions demonstrate distribution of the radiotracer in the left-right thyroid colloid most accentuated in the inferior pole of the right thyroid bed. 2. Delayed images depict persistent increased tracer uptake noted in the inferior pole of the right thyroid bed with otherwise washout of the radiotracer from the remaining prior defined thyroid parenchyma. 3. An increase in uptake is noted in the right upper anterolateral chest wall or lung field. NM/Parathyroid Scan IMPRESSION: 1. ABNORMAL 99m Tc SESTAMIBI PARATHYROID IMAGING DUAL PHASE EXAMINATION. 2. 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 3. Increased tracer distribution defined in the right anterior chest wall-lung may be further investigated with clinical examination and CT of the chest and/or plain film chest radiography. Electronically Signed: Festus Cano DO at 9:05 EDT ,
--- OUTSIDE RECORDS SUMMARY | 2023-11-30 11:05 | XMS RPT_ITS | CCD ---
Author Name Unknown Address [address] [place] [address] Organization [facility] Care Team Providers Care Fire Technician Name Role Phone Unavailable Primary Care Provider Unavailabl e HARRIET, GINETTE Referring Unavailable HARRIET, GINETTE Attending Unavailable HARRIET, GINETTE Referring Unavailable Unavailable Primary Care Provider Unavailabl e Allergies Allergy Classification Reported Allergen(s) Allergy Type Date of Onset Reaction(s) Facility (9 sources) Codeine; Translations: [CODEINE] Drug Allergy 10-05-2005 [facility] Work Phone: (4 sources) Penicillins; Translations: [PENICILLINS] Drug Allergy 03-30-2021 Diarrhea, Other: See Comments [facility] Medications Completed/Discontinued Medications Medication Drug Class(es) Dates Sig (Normalized) Sig (Original) [id number] 200 actuat albuterol 0.09 mg/actuat metered dose [...] 02-18-2023 12:50-0400 Body height 170.2 cm Ginette Reardan CUSTOMS AND BORDER PROTECTION INSPECTOR.PRINCIPAL SECURITY ARCHITECT Work Phone: [facility] 02-18-2023 12:50-0400 Body weight 145.15 kg Ginette Reardan CUSTOMS AND BORDER PROTECTION INSPECTOR.PRINCIPAL SECURITY ARCHITECT Work Phone: [facility] 02-18-2023 12:50-0400 Diastolic blood pressure 86 mm[Hg] Ginette Harriet CUSTOMS AND BORDER PROTECTION INSPECTOR.PRINCIPAL SECURITY ARCHITECT Work Phone: [facility] 02-18-2023 12:50-0400 Systolic blood pressure 134 mm[Hg] Ginette Reardan CUSTOMS AND BORDER PROTECTION INSPECTOR.PRINCIPAL SECURITY ARCHITECT Work Phone: [facility] 01-28-2022 07:53-0400 Body height 168.9 cm Ginette Harriet CUSTOMS AND BORDER PROTECTION INSPECTOR.PRINCIPAL SECURITY ARCHITECT Work Phone: [facility] 01-28-2022 07:53-0400 Body weight 148.42 kg Ginette Harriet CUSTOMS AND BORDER PROTECTION INSPECTOR.PRINCIPAL SECURITY ARCHITECT Work Phone: [facility] 01-28-2022 07:53-0400 Diastolic blood pressure 80 mm[Hg] Ginette Reardan CUSTOMS AND BORDER PROTECTION INSPECTOR.PRINCIPAL SECURITY ARCHITECT Work Phone: [facility] 01-28-2022 07:53-0400 Systolic blood pressure 128 mm[Hg] Ginette Reardan CUSTOMS AND BORDER PROTECTION INSPECTOR.PRINCIPAL SECURITY ARCHITECT Work Phone: [facility] Encounters Encounter Date Encounter Type Care Provider Facility Start: 05-18-2023 End: 05-18-2023 ambulatory GINETTE LARIOS Facility:[facility] Start: 05-18-2023 End: 05-18-2023 Subsequent hospital visit by physician Bone Density [facility] Work Phone: Radiology Procedures Date Procedure Procedure Detail Performing Clinician Start: 05-18-2023 Dxa bone density carol dy 1/> sites axial skel Ginette Romerof CUSTOMS AND BORDER PROTECTION INSPECTOR.PRINCIPAL SECURITY ARCHITECT Work Phone: Start: 02-18-2023 Screening mammograph y bi 2-view breast inc cad Ginette Romerof CUSTOMS AND BORDER PROTECTION INSPECTOR.PRINCIPAL SECURITY ARCHITECT Work Phone: Start: 01-28-2022 End: 01-28-2022 Mammography Ginette Lackeycalf CUSTOMS AND BORDER PROTECTION INSPECTOR.C LATENT FINGERPRINT EXAMINER Work Phone: Start: 11-27-2020 Mammography [facility] CUSTOMS AND BORDER PROTECTION INSPECTOR.PRINCIPAL SECURITY ARCHITECT Work Phone: Start: 12-26-2018 Adult depression scr eening assessment Ginette Reardan CUSTOMS AND BORDER PROTECTION INSPECTOR.PRINCIPAL SECURITY ARCHITECT Work Phone: Start: 03-17-2016 Lipid 1996 panel - S caleb or Plasma Screen Wstr Plan of Treatment Date Care Activity Detail Author Start: 02-19-2024 Mammography Mammogram Screening [facility] Start: 05-20-2023 Covid-19 Vaccine ( season) Covid-19 Vaccine ( season) [facility] Start: 05-20-2023 Influenza vaccination [facility] Start: 01-28-2023 Mammography MAMMOGRAM [facility] Start: 09-19-2022 DEPRESSION ASSESSMENT DEPRESSION ASSESSMENT [facility] Start: 05-20-2022 Influenza vaccination INFLUENZA (Season Ended) [facility] Start: 11-27-2021 Mammography MAMMOGRAM [facility] Start: 03-17-2021 Lipid 1996 panel - Serum or Plasma Lipid Screening [facility] Start: 03-17-2021 LIPID SCREEN LIPID SCREEN [facility] Start: 12-18-2020 COLOGUARD (FIT-DNA) COLOGUARD (FIT-DNA) [facility] Start: 12-18-2020 Colonoscopy COLONOSCOPY [facility] Start: 04-01-2021 COLORECTAL CANCER SCREENING COLORECTAL CANCER SCREENING [facility] Start: 12-18-[address] COLONOGRAPHY [facility] Start: 12-18-2020 DIABETES SCREEN DIABETES SCREEN [facility] Start: 12-18-2020 Diabetes Screening Diabetes Screening [facility] Start: 12-18-2020 FECAL OCCULT BLOOD FECAL OCCULT BLOOD [facility] Start: 12-18-2020 SIGMOIDOSCOPY SIGMOIDOSCOPY [facility] Start: 12-27-2019 Adult depression screening assessment DEPRESSION SCREENING [facility] Start: 09-16-2017 Urine microalbumin profile [facility] Start: 12-18-1993 HEPATITIS C SCREENING HEPATITIS C SCREENING [facility] Start: 12-18-1993 HIV SCREENING HIV SCREENING [facility] Start: 12-18-1980 COVID-19 VACCINE (#1) COVID-19 VACCINE (#1) [facility] Start: 12-18-1980 COVID-19 VACCINE (1) COVID-19 VACCINE (1) [facility] Start: 06-19-1976 COVID-19 VACCINE (#1) COVID-19 VACCINE (#1) [facility] Start: 1975 HEPATITIS B (1 of 3 - 3-dose series) HEPATITIS B (1 of 3 - 3-dose series) [facility] Start: 1975 Hepatitis B Vaccine (1 of 3 - 3-dose series) Hepatitis B Vaccine (1 of 3 - 3-dose series) [facility] End: 03-19-2024 DXA-AXIAL SKELETON DXA-AXIAL SKELETON Radiology Routine Premature surgical menopause Encounter for screening for osteoporosis 1 Occurrences starting 02/18/2023 until 03/19/2024 [facility] Work Phone: Immunizations Immunization Date Immunization Notes Care Provider Nicholas bentley 07-29-2022 influenza virus vaccine, unspecified formulation Screen Wstr [facility] 09-16-2007 tetanus toxoid, redu trupti diphtheria toxoid, and acellular pertussis vaccine, adsorbed Ginette Harriet CUSTOMS AND BORDER PROTECTION INSPECTOR.PRINCIPAL SECURITY ARCHITECT Work Phone: [facility] Work Phone: Payers Date Payer Category Payer Unknown BRADLY MICHEL PPO [id number] 2020-Present [phone] [facility] [id number] [place] [address] PPO [id number] 2020 Unknown BRADLY MICHEL PPO [id number] 2020-Present [phone] [address] [place] [address] PPO [id number] 2020 Unknown [id number] Social History Date Type Detail Facility Start: 08-15-2013 Tobacco smoking stat us NHIS Never smoked tobacco [facility] Start: 03-30-2021 End: 02-18-2023 Alcohol intake Current non-drinker of alcohol (finding) [facility] Start: 11-27-2020 History SDOH Social Connections Phone 5 [facility] Start: 11-27-2020 History SDOH Social Connections Get Together 2 [facility] Start: 11-27-2020 History SDOH Social Connections Denominational 1 [facility] Start: 11-27-2020 History SDOH Social Connections Living 3 [facility] Start: 11-27-2020 History SDOH Physica l Activity DPW 0 [facility] Start: 1975 Sex Assigned At Not on file [facility] Start: 01-18-2022 End: 01-28-2022 Exposure to SARS-CoV-2 (event) Not sure [facility] Start: 08-15-2013 Tobacco use and exposure Smoke less tobacco non-user [facility] Start: 11-27-2020 End: 02-18-2023 [facility]: Start: 11-27-2020 End: 02-18-2023 Social connection and isolation panel [facility] Work Phone: Do you belong to any clubs or organizations such as restoration groups, unions, fraternal or athletic groups, or school groups? No [facility] Work Phone: Are you now , , , , never or living with a partner? [facility] Work Phone: Adult Depression Scr eening Assessment 0 [facility] Do you feel stress - tense, restless, nervous, or anxious, or unable to sleep at night because your mind is troubled all the time - these days [OSQ] To some extent [facility] Work Phone: Clinical Notes 01-28-2022 to 05-18-2023 Matias Mejia RT(R) - 05/18/2023 3:00 PM Marium Larios APRN.CYNDEE - 02/18/2023 12:46 PM Vanessa Pires RT(R) - 02/18/2023 12:30 PM Marium Larios APRN.CNP - 01/28/2022 7:53 AM EDT Note Date & Type Note Facility 05-18-2023 Note HNO ID: [id number] Author: Matias Mejia RT(R) Service: ? Author [...] RT Barbara(R) May 18, 2023 3:13 PM [facility] 05-18-2023 History of Presen t illness Narrative [...] 2023 3:13 PM documented in this encounter [facility] 02-18-2023 Note HNO ID: [id number] Author: Ginette Larios APRN.PRINCIPAL SECURITY ARCHITECT Service: ? Author Type: Nurse Practitioner Type: Progress Notes Filed: 02/18/2023 1:16 PM Note Text: Automatic Oven Operator offered: Patient declinesSilvano Gutierrez is a 47 [...] L2 SAB0 IAB0 Ectopic0 Multiple0 Live Births2 Manager Story History LMP: 10/23/2006, Hysterectomy Age at Menarche: Age at First : Age at Menopause: Manager Story History Comments: Sexual Activity: Yes; Male; total [...] Problems Sister Cancer Maternal Grandfather LUNG CA, [place], CVA Stroke Paternal Grandfather No Known Problems [...] external genitalia normal, normal Bartholin's glands, urethra, Spring[place]'s glands, no vulvar lesions, physiologic discharge present, [...] year or sooner as needed Ginette Larios APRN.[facility] 02-18-2023 Note HNO ID: [id number] Author: RT Isela(R) Service: ? Author Type: [...] RT Isela(R) February 18, 2023 12:24 PM [facility] 02-18-2023 History of Presen t illness Narrative Automatic Oven Operator offered: Patient declines. Brenda is a 47 [...] L2 SAB0 IAB0 Ectopic0 Multiple0 Live Births2 Manager Story History LMP: 10/23/2006, Hysterectomy Age at Menarche: Age at First : Age at Menopause: Manager Story History Comments: Sexual Activity: Yes; Male; total [...] Problems Sister Cancer Maternal Grandfather LUNG CA, NE, CVA Stroke Paternal Grandfather No Known Problems [...] external genitalia normal, normal Bartholin's glands, urethra, [place]'s glands, no vulvar lesions, physiologic discharge present, [...] Ginette Larios APRN.CYNDEE documented in this encounter [facility] 02-18-2023 History of Presen t illness Narrative [...] 2023 12:24 PM documented in this encounter [facility] 01-28-2022 Miscellaneous Notes Refill request received from pharmacy. Patient seen in the office today for annual exam. Jessica Jacobs RN documented in this encounter [facility] 01-28-2022 Miscellaneous Notes January 28, 2022 PID: [id number] Brenda Alcazar [address] [place] [address] Dear Ms. Alcazar, We are pleased to [...] report will be kept on file at [facility] as part of your permanent medical record and are available for your continuing care. Thank you for allowing us to help in meeting your health care needs. Sincerely, Dr. Carey Interpreting Radiologist [facility] (Normal over 40) documented in this encounter [facility] 01-28-2022 History of Presen t illness Narrative [...] L2 SAB0 IAB0 Ectopic0 Multiple0 Live Births2 Manager Story History LMP: 10/23/2006, Hysterectomy Age at Menarche: Age at First : Age at Menopause: Manager Story History Comments: Sexual Activity: Yes; Male; total [...] Problems Sister Cancer Maternal Grandfather LUNG CA, [place], CVA Stroke Paternal Grandfather No Known Problems [...] external genitalia normal, normal Bartholin's glands, urethra, [place]'s glands, no vulvar lesions, physiologic discharge present, [...] Ginette Larios APRN.CNP documented in this encounter [facility] 01-28-2022 History of Presen t illness Narrative [...] 2022 7:30 AM documented in this encounter [facility] documented [facility] this [facility] Diagnosis Encounter for gynecological examination (general) (routine) without abnormal findings- Primary Encounter for screening mammogram for breast cancer [facility] Diagnosis Premature surgical menopause Postablative ovarian failure [facility] Diagnosis Encounter for screening mammogram for malignant neoplasm of breast Other screening mammogram documented [facility]* Diagnosis Encounter for gynecological examination (general) (routine) without abnormal findings- Primary Encounter for screening mammogram for breast cancer Premature surgical menopause Postablative ovarian failure Encounter for screening for osteoporosis Special screening for osteoporosis [facility] Diagnosis Encounter for screening mammogram for breast cancer [facility]* Diagnosis Premature surgical menopause Postablative ovarian failure Encounter for screening for osteoporosis Special screening for osteoporosis [facility] (n[facility]ative)* Diagnostic Procedure Only (Routine) - Pending Review Specialty Diagnoses / Procedures Referred By Dustin shanks Referred To Contact [facility] Diagnoses Encounter for screening mammogram for malignant neoplasm of breast Procedures BENTLEY SCREENING SCREENING MAMMOGRAPHY BI 2-VIEW BREAST INC CAD ReardanGinette APRN.PRINCIPAL SECURITY ARCHITECT [address] [place] [address] [facility] [address] [place] [address] Referral ID Status Reason Start Date Expiration Date Visits Requested Visits Authorized [id number] Pending Review Auto-Generat ed Referral 01/25/2022 02/21/2023 1 1 [facility] for referral (narrative)* Diagnostic Procedure Only (Routine) - Pending Review Specialty Diagnoses / Procedures Referred By Dustin t Referred To Contact [facility] Diagnoses Encounter for screening mammogram for breast cancer Procedures BENTLEY SCREENING SCREENING MAMMOGRAPHY BI 2-VIEW BREAST INC [facility] Ginette Larios APRN.PRINCIPAL SECURITY ARCHITECT [address] [place] [address] [facility] [address] [place] [address] Referral ID Status Reason Start Date Expiration Date Visits Requested Visits Authorized [id number] Pending Review Auto-Generat ed Referral 01/28/2022 02/27/2023 1 1 [facility] for referral (narrative)* Diagnostic Procedure Only (Routine) - Closed Specialty Diagnoses / Procedures Referred By Dustin t Referred To Contact [facility] Diagnoses Encounter for screening mammogram for malignant neoplasm of breast Procedures BENTLEY SCREENING SCREENING MAMMOGRAPHY BI 2-VIEW BREAST INC CAD ReardanGinette, CUSTOMS AND BORDER PROTECTION INSPECTOR.PRINCIPAL SECURITY ARCHITECT [address] [place] [address] [facility] [address] [place] [address] Referral ID Status Reason Start Date Expiration Date V isits Requested Visits Authorized [id number] Closed Auto-Generate d Referral 01/25/2022 02/21/2023 1 1 [facility] for referral (narrative)* Diagnostic Procedure Only (Routine) - Pending Review Specialty Diagnoses / Procedures Referred By Contac t Referred To Contact [facility] Diagnoses Encounter for screening mammogram for breast cancer Procedures BENTLEY SCREENING SCREENING MAMMOGRAPHY BI 2-VIEW BREAST INC CAD ReardanGinette APRN.PRINCIPAL SECURITY ARCHITECT [address] [place] [address] [facility] [address] [place] [address] Referral ID Status Reason Start Date Expiration Date Visits Requested Visits Authorized [id number] Pending Review Auto-Generat ed Referral 02/18/2023 03/19/2024 1 1 [facility] for referral (narrative)* Diagnostic Procedure Only (Routine) - Closed Specialty Diagnoses / Procedures Referred By Dustin t Referred To Contact [facility] Diagnoses Encounter for screening mammogram for breast cancer Procedures BENTLEY SCREENING SCREENING MAMMOGRAPHY BI 2-VIEW BREAST INC CAD ReardanGinette CUSTOMS AND BORDER PROTECTION INSPECTOR.PRINCIPAL SECURITY ARCHITECT [address] [place] [address] [facility] [address] [place] [address] Referral ID Status Reason Start Date Expiration Date V isits Requested Visits Authorized [id number] Closed Auto-Generate d Referral 01/28/2022 02/27/2023 1 1 [facility] for visit Narrative* Diagnostic Procedure Only (Routine) - Closed Specialty Diagnoses / Procedures Referred By Contac t Referred To Contact [facility] Diagnoses Encounter for screening mammogram for malignant neoplasm of breast Procedures BENTLEY SCREENING SCREENING MAMMOGRAPHY BI 2-VIEW BREAST INC CAD ReardanGinette APRN.PRINCIPAL SECURITY ARCHITECT [address] [place] [address] [facility] [address] [place] [address] Referral ID Status Reason Start Date Expiration Date V isits Requested Visits Authorized [id number] Closed Auto-Generate d Referral 01/25/2022 02/21/2023 1 1 [facility]* Diagnostic Procedure Only (Routine) - Closed Specialty Diagnoses / Procedures Referred By Dustin t Referred To Contact [facility] Diagnoses Encounter for screening mammogram for breast cancer Procedures BENTLEY SCREENING SCREENING MAMMOGRAPHY BI 2-VIEW BREAST INC CAD Harriet Ginette, CUSTOMS AND BORDER PROTECTION INSPECTOR.PRINCIPAL SECURITY ARCHITECT [address] [place] [address] [facility] [address] [place] [address] Referral ID Status Reason Start Date Expiration Date V isits Requested Visits Authorized [id number] Closed Auto-Generate d Referral 01/28/2022 02/27/2023 1 1 [facility] Summary Purpose Family History No Family History [...] or prosecute any alcohol or drug abuse patient.[facility] the event this information is protected by the Federal Confidentiality of Alcohol and Drug Abuse Patient Records regulations: The Federal rules restrict any use of the information to criminally investigate or prosecute any alcohol or drug abuse patient.[facility] System[facility] the event this information is protected by the Federal Confidentiality of Alcohol and Drug Abuse Patient Records regulations: The Federal rules restrict any use of the information to criminally investigate or prosecute any alcohol or drug abuse patient.[facility] SystemIn the event this information is protected by the Federal Confidentiality of Alcohol and Drug Abuse Patient Records regulations: The Federal rules restrict any use of the information to criminally investigate or prosecute any alcohol or drug abuse patient.[facility] System[facility] the event this information is protected by the Federal Confidentiality of Alcohol and Drug Abuse Patient Records regulations: The Federal rules restrict any use of the information to criminally investigate or prosecute any alcohol or drug abuse patient.[facility] System[facility] the event this information is protected by the Federal Confidentiality of Alcohol and Drug Abuse Patient Records regulations: The Federal rules restrict any use of the information to criminally investigate or prosecute any alcohol or drug abuse patient.[facility] SystemIn the event this information is protected by the Federal Confidentiality of Alcohol and Drug Abuse Patient Records regulations: The Federal rules restrict any use of the information to criminally investigate or prosecute any alcohol or drug abuse patient.[facility] SystemIn the event this information is protected by the Federal Confidentiality of Alcohol and Drug Abuse Patient Records regulations: The Federal rules restrict any use of the information to criminally investigate or prosecute any alcohol or drug abuse patient.[facility] Reason for Visit (unrecogniz ed section and [...] BE BASED ON THE PRIMARY CLINICAL RECORDS. [facility] [employer] [facility]. provides no warranty or guarantee of the accuracy or completeness of information in this document.
--- NOTE | 2023-11-30 12:11 | US_ITS ---
STUDY: THYROID ULTRASOUND REASON FOR EXAM: Female, 47 years old. Hypercalcemia, parathyroid adenoma suspected TECHNIQUE: Ultrasound evaluation of the thyroid was performed with real-time and static logan-scale imaging. COMPARISON: None. FINDINGS: RIGHT LOBE: The right lobe of the thyroid gland measures 4.2 x 1.8 x 1.7 cm. There is a homogeneous echotexture. There is a hyperechoic well-defined 0.9 x 0.9 x 0.8 cm solid nodule with a hypoechoic rim in the upper pole. This nodule is solid or almost completely solid, hyperechoic or isoechoic, [id number], smoothly marginated and contains no echogenic foci. TI-RADS points: 3. TI-RADS category: TR3. This nodule is mildly suspicious but no FNA or follow-up is necessary given the small size of this nodule. There are also 2 separate solid and cystic complex nodules in the mid and lower pole each measuring 0.4 x 0.4 x 2.2 cm, no specific follow-up needed for these. LEFT LOBE: The left lobe of the thyroid gland measures 4.1 x 1.5 x 1.1 cm. There is a homogeneous echotexture. There is a solid/cystic 0.3 x 0.3 x 0.2 cm complex nodule, no specific follow-up needed. ISTHMUS: The isthmus measures 2.1 mm. The regional lymph nodes are normal. Inferior to the right thyroid gland is a large solid/cystic structure measuring 2.6 x 1.3 x 1.4 cm which shows some subtle increased activity on the delayed parathyroid nuclear medicine study which I suspect represents an enlarged parathyroid gland. There is also a solid hypoechoic structure posterior to the left thyroid lobe measuring 0.9 x 0.4 x 0.5 cm it does not show persistent activity on the delayed sestamibi study. US/Thyroid IMPRESSION: Normal-sized homogeneous thyroid gland with a solid echogenic nodule in the right thyroid lobe. Categorization and follow-up as described above Bilateral solid and cystic subcentimeter nodules need no specific follow-up Likely enlarged parathyroid glands inferior and posterior to the thyroid gland. Please correlate with nuclear medicine sestamibi study for possible abnormal activity Electronically Signed: Joaquín Chavis MD at 10:35 EDT ,
== END | disposition home or self-care (01) ==
LOC: NM 09:45
PROVIDERS: PCP Internal Medicine; Referring Provider Internal Medicine Endocrinology, Diabetes & Metabolism; Visit Provider Internal Medicine Endocrinology, Diabetes & Metabolism
DX: E21.3 Hyperparathyroidism, unspecified (principal)
CPT/HCPCS: 76536; 78070; A9500

== ENCOUNTER 2024-02-23 17:34 | Observation (INO) | payer BC, SELFPAY ==
[2024-02-23] VITALS (11 sets, daily range): BP systolic 91–172; BP diastolic 78–92; PULSE 78–106; RESP 16–20; TEMP 36.2–36.8; O2SAT 91–99; BMI 47.6
[2024-02-23] MEDS: Lactated Ringers 1,000 ML 15 ML IV (10:14)
--- NOTE | 2024-02-23 11:28 | HP.PCM_ITS ---
History and Physical Date of Admission: 02/23/24 Date of Service: 12/30/23 MR#: [id number] Acct: [id number] Name: MAYA HILARIO Rep #: [id number] : 1975 Provider: Dr. Evens Borja MD Age/Sex: 48/F Location: [facility] Status: Signed Intake Vital Signs 10/13/2407:12 12/29/2408:04 Height 5 ft 6.5 in 5 ft 7 in Weight: 303 lb 8 oz 305 lb 2 oz BMI 48.2 47.7 BP 162/82 H 160/100 H Blood Pressure Location Rt radial Rt brachial Position Sitting Sitting Respiration 17 18 Pulse 83 82 Pulse Source NIBP Monitor Temp 98.4 F 97.3 F L Temp Source Temporal Temporal Pulse Oximetry (%) 97 96 Oxygen Delivery Method room air room air Intake Visit Reasons: PARATHYROIDISM Chief Complaint: parathyroidism Is patient in pain?: No Allergies codeine Allergy (Intermediate, Verified 12/30/23 09:05) RashPenicillins [PCN] Adverse Reaction (Verified 12/30/23 09:05) Yeast infection Medications estradiol 1 mg tablet 1 mg PO DAILY 04/16/19 [History Confirmed 12/30/23] cranberry 400 mg capsule 400 mg PO BID 01/13/23 [History Confirmed 12/30/23] fexofenadine 180 mg tablet (Isaura Allergy) 180 mg PO DAILY 01/13/23 [History Confirmed 12/30/23] multivitamin 1 cap PO DAILY 01/13/23 [History Confirmed 12/30/23] montelukast 10 mg tablet 10 mg PO QPM #90 tabs 01/31/23 [Rx Confirmed 12/30/23] fluticasone furoate 200 mcg-vilanterol 25 mcg/dose inhalation powder (Breo Ellipta) 1 inh inhalation Q24H #3 device 03/02/23 [Rx Confirmed 12/30/23] allergy shot subcut 04/12/23 [History Confirmed 12/30/23] albuterol sulfate 90 mcg/actuation aerosol inhaler 2 puff inhalation Q4H PRN shortness of breath or wheezing #18 grams 07/25/23 [Rx Confirmed 12/30/23] triamcinolone acetonide 55 mcg/actuation nasal spray,aerosol mcg intranasal 10/13/23 [History Confirmed 12/30/23] PFSH Medical History Allergic rhinitis Asthma Back problem History of kidney stones Hyperparathyroidism Leg cramps migraine Non-smoker Renal stones Seasonal allergies Wears contact lenses Wears glasses Surgical History H/O sinus surgery History of cystoscopy History of surgery History of tonsillectomy and adenoidectomy Hx of hysterectomy Family History (Updated 12/30/23 @ 09:04 by Danay Melendrez LPN) Father Cancer kidneyMother AsthmaGrandfather Lung cancerSister Graves disease Social History household members: spouse and children current occupational status: employed 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 They are referred from Dr. Haile Garcias of endocrinology. Patient has a history of normal bone density from testing performed May 2023. Patient has no history of pathologic fractures. Patient started her journey towards a diagnosis with hyperparathyroidism given her history of kidney stones. She shares that she was first diagnosed in December 2022 and required surgery on the right side followed by lithotripsy on the left side a month later and then a third procedure in March of that year. She reports that Dr. Reed of urology first put her in touch with Dr. Garcias of endocrinology after obtaining an abnormal 24-hour urine calcium. Patient has been history of frequent dental caries or chipped teeth. Patient has not history of brittle fingernails. Patient has no history of GERD. Patient suggest a history of whitecoat hypertension but generally has normal blood pressures. Additional symptoms include: No significant memory difficulties or cognitive deficits. Patient has no history of prior radiation exposure. Patient has a family history of Graves' disease and her sister but she does not believe she is required a surgery for this diagnosis. Patient does have a diet high in dairy and shares that she daily consumes cheese and yogurt while only occasionally consuming milk and ice cream. Patient's current labs are calcium: 11.5 mg/dL 11/05/2023 (range of 9.4-11.5), Vitamin D: 30.9 ng/mL (11/05/2023), Ionized calcium: 5.53 mg/dL 11/05/2023, PTH: 98.6 pg/mL 11/05/2023 (range of 98.6-114.8) Current medications include: Vitamin D supplementation with 1000 international units coming via a multivitamin as well as an additional 1000 international units and a dedicated vitamin D supplement. Imaging has been done thyroid ultrasound and sestamibi on 11/30/2023. Thyroid ultrasound showed evidence of possible parathyroid lesions posterior to the inferior poles of the bilateral thyroid lobes while sestamibi showed concern for a parathyroid adenoma on the right. Patient has had DEXA imaging in May 2023 which did not find any bone demineralization. ROS General General: Yes weight change (loss- 45 lbs intentional ); No appetite, fatigue, colon cancer, breast cancer or weakness HEENT HEENT: No difficulty swallowing, eye injury, eye surgery, swollen glands or hoarseness Endo Endocrine: Yes thyroid disease; No diabetes mellitus, thyroid cancer, Hair loss, heat intolerance or cold intolerance Skin Skin: No rash or changing moles Musc Musculoskeletal: No back problems, arthritis, rheumatoid arthritis, gout or joint pain Cardio Cardiovascular: No murmur, pacemaker, heart disease, atrial fibrillation, high blood pressure, heart attack, heart stent, palpitations, shortness of breat with exertion or chest pain Psych Psychiatric: No depression, anxiety or hearing voices Resp Respiratory: No shortness of breath, No sleep apnea, Yes cough, No COPD, Yes asthma, No emphysema and No wheezing Gastro Gastrointestinal: No abdominal pain, Yes nausea or vomiting, No diarrhea, Yes constipation, No blood in stool, No acid reflux, Yes hemorrhoids, No ulcers, No gallbladder problem and No black,tarry stools Ap Hematologic: No blood thinners, No blood disorders, No bleeding, No anemia and No blood clots Neuro Neurologic: No numbness, No tingling and No weakness Exam Const General: cooperative, no acute distress and anxious Orientation: alert, awake and oriented x3 Neck Other: Thick, supple neck with inferiorly?located thyroid gland. There is no discrete nodularity or lymphadenopathy. There is no significant tenderness with palpation. I do identify a potential parathyroid candidate inferior to the right thyroid lobe inferior pole that is somewhat lobular in shape but a feeding polar vessel appears to be present Assessment and Plan Assessment and Plan (1) Hyperparathyroidism: Status: Chronic Comment: Patient is a 48-year-old female with biochemical evidence of primary hyperparathyroidism as well as surgical indications for parathyroidectomy given her extensive history of kidney stones and procedures to treat this issue starting last year. Further, her disease process appears to be localized to the right inferior (and possibly the left inferior position). I held a lengthy conversation with her regarding her diagnosis and clarified that although she has nodularity of her thyroid none of this is actionable at this time. I did recommend that we proceed with parathyroidectomy using intraoperative PTH and nerve monitoring. I discussed the process of obtaining PTH levels as a means of demonstrating a cure once parathyroid adenomas were excised. I shared that typically this is an outpatient procedure, but if multi gland disease is discovered then this could require subtotal parathyroidectomy and change postoperative disposition for calcium monitoring. I discussed procedure risks including?specifically hypoparathyroidism and recurrent laryngeal nerve injury. Lastly I reviewed post procedure expectations for surveillance of PTH and calcium. Patient expressed thankfulness for these descriptions and an intent to pursue recommended surgery. Plan: Parathyroidectomy at agreed-upon date with PTH and nerve monitoring. Will plan for outpatient disposition but this will ultimately be contingent upon operative findings/postoperative course. I have examined the patient and the H&P has been reviewed. There are no clinical changes since date of exam. Patient confirms that she is in her usual state of health and denies any recent illness. We discussed a brief overview of the procedure for today as well as post procedure expectations?including use of supplemental calcium and the signs of hypocalcemia. All questions were taken from patient and her family. We will tentatively plan for outpatient disposition, but patient and her family are briefed that inpatient/overnight observation may be required if patient proves to have multi gland disease or the operation is extended. Will now proceed to the operating room for planned parathyroidectomy with intraoperative PTH and nerve monitoring. PTH is pending from a peripheral draw.
[2024-02-23 12:06] LABS: PTHIN 132.4 pg/mL (18.4-80.1)
[2024-02-23 12:45] LABS: PTHIN 539.1 pg/mL (18.4-80.1)
--- NOTE | 2024-02-23 13:00 | PARA_PTH ---
PATIENT: MAYA HILARIO LOC: [facility]3 U#:[id number] AGE/SX: 48/F ROOM: [facility] RE02/23/[address]: Dr. Evens Borja MD : 1975 BED: 1 DIS: 02/24/2024 SPEC #: [id number] RECD: 02/23/24 13:31 STATUS: CANDICE MELISSA #: [id number] ANH: 02/23/24 13:[address]: Evens Borja DEPT: SURGICAL PATHOLOGY RECD BY: Juvenal Ayala ENTERED: 02/23/24 13:31 SP TYPE: PARATHY OTHR DR: Dr. Zeinab Walton MD Tissues: A - Parathyroid Procedures: Frozen Section (charge) Frozen Section Add'l ([facility]) Surgery Specimen Level IV HEADER OPERATION: Parathyroidectomy with PTH & IONM PRE-OP DIAGNOSIS: Hyperparathyroidism TISSUE SUBMITTED: A- Right inferior parathyroid, B- Right superior parathyroid, C- Left superior parathyroid gland biopsy, D- Right superior parathyroid gland biopsy, E- Left inferior parathyroid tissue biopsy FROZEN SECTION DIAGNOSIS A. Right inferior parathyroid, biopsy: Parathyroid tissue (0.121 gm). Case has been reviewed in consultation with Dr. Troncoso who concurs with the above diagnosis. IDC:TYRA SJ: 02/23/24 B. Right superior parathyroid, biopsy: SJ A piece of adipose tissue. SJ: 02/23/24 C. Left superior parathyroid gland, biopsy: AM Hyperplastic parathyroid gland. AM: 02/23/24 D. Right superior parathyroid gland, biopsy: AM Hyperplastic parathyroid gland. : 02/23/24 E. Left inferior parathyroid tissue, biopsy: AM Benign fibrofatty tissue. : 02/23/24 MICROSCOPIC DIAGNOSIS A. Right inferior parathyroid tissue, biopsy: Parathyroid tissue (0.121gm). B. Right superior parathyroid, biopsy: A piece of adipose tissue. Parathyroid gland tissue is not identified. C. Left superior parathyroid gland, excision: Hyperplastic parathyroid gland tissue (0.502gm). D. Right superior parathyroid gland, excision: Hyperplastic parathyroid gland tissue (1.237gm). See comment. E. Left inferior parathyroid tissue, biopsy: A piece of fibroadipose tissue. Parathyroid gland tissue is not identified. See comment. / 02/27/2024 COMMENT Clinical correlation and appropriate follow up are necessary. Case has been reviewed in consultation with Dr. Troncoso who concurs with the above diagnosis. IDC:AM MICROSCOPIC DESCRIPTION Slides are reviewed. GROSS DESCRIPTION A. Received fresh for frozen section consultation/diagnosis labeled with the patient's name is a specimen designated Right inferior parathyroid. The specimen consists of a pink piece of soft tissue measuring 0.7 x 0.7 x 0.2cm and weighing 0.121gm. The entire specimen is submitted for frozen section diagnosis in one cassette. [facility] 02/23/24 B. Received fresh for frozen section diagnosis labeled with the patient's name is a specimen designated Right superior parathyroid. The specimen consists of a piece of leo soft tissue measuring 0.5 x 0.1 x 0.1cm and weighing 0.009gm. The entire specimen is submitted for frozen section diagnosis in one cassette. [facility] 02/23/2024 C. Received fresh for frozen section diagnosis labeled with the patient's name is a specimen designated Left superior parathyroid gland. The specimen consists of a piece of pink-leo soft tissue measuring 2.2 x 0.7 x 0.6cm and weighing 0.502gm. The specimen is bisected and totally submitted for frozen section diagnosis in one cassette. [facility] 02/23/24 D. Received fresh for frozen section diagnosis labeled with the patient's name is a specimen designated Right superior gland. The specimen consists of a piece of daqy-fik-pdg tissue measuring 2.2 x 1.6 x 0.6cm and weighing 1.237gm. The specimen is bisected. The entire specimen is submitted in two cassettes as follows: 1- one half of tissue for frozen section, 2- rest of the specimen. /02/23/24 E. Received fresh for frozen section diagnosis labeled with the patient's name is a specimen designated Left inferior parathyroid tissue. The specimen consists of a piece of leo soft tissue measuring 0.5 x 0.5 x 0.1cm and weighing 0.12gm. The entire specimen is submitted for frozen section diagnosis in one cassette. 02/23/24 TC:5 CPT: 04790h3,10113i3
[2024-02-23 13:32] LABS: PTHIN 607.2 pg/mL (18.4-80.1)
[2024-02-23 13:33] LABS: PTHIN 480.5 pg/mL (18.4-80.1)
[2024-02-23 15:00] LABS: PTHIN 386.7 pg/mL (18.4-80.1)
[2024-02-23 15:00] LABS: PTHIN 367.2 pg/mL (18.4-80.1)
[2024-02-23 16:24] LABS: PTHIN 246.4 pg/mL (18.4-80.1)
[2024-02-23] MEDS: Bupivacaine 0.25% 30 ML Vial (17:23)
[2024-02-23 17:24] LABS: PTHIN 36.3 pg/mL (18.4-80.1)
[2024-02-23 17:24] LABS: PTHIN 32.3 pg/mL (18.4-80.1)
--- NOTE | 2024-02-23 17:26 | OP.PCM_ITS ---
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 Right inferior parathyroid gland (pathology confirmed with frozen section) 2. Rule out right superior parathyroid gland (pathology confirmed this as fibrofatty tissue) 3. Left superior parathyroid gland (pathology confirmed this was hyperplastic parathyroid tissue) 4. Right superior parathyroid gland (pathology confirmed this was hyperplastic parathyroid tissue) 5. Rule out left inferior parathyroid gland (pathology confirmed this was also fatty tissue) Drains: None Estimated Blood Loss (mL): 25 Description of Procedure: After appropriate identification in the preoperative holding area the patient was brought to the operating room where she was positioned supine on the operating room table. There she was induced with general endotracheal ane sthetic. Of note, a preoperative PTH had been obtained and was reported as 132.4. Patient was then intubated using a Nims tube and glide a scope to ensure coaptation between the vocal cords and the Nims tube electrodes. A resistance check confirmed appropriate function of the tube after the electrodes were properly connected to the monitoring box. Patient was then positioned in cervical extension, but adequately supporting the occiput. She was prepped and draped in the usual sterile fashion and a formal timeout followed to confirm patient and the procedure to be performed. A local block was produced with infiltration of local anesthetic and a 4cm transverse incision was made. This was deepened with the use of electrocautery through the platysma longitudinally. Ultimately the strap muscles were exposed and were divided along their raphe longitudinally with electrocautery. I then used blunt dissection to free the sternothyroid muscle from the thyroid capsule of the right thyroid lobe deeply. The strap muscles were from one another as I proceeded with dissection laterally towards the patient's right internal jugular vein. Once this structure was sufficiently exposed I obtained a baseline central vein PTH level. This ultimately returned at 539. For the interim I returned to the patient's neck and elevated the in the pole of the right thyroid lobe. It became immediately apparent that patient had a large parathyroid gland located just deeply and inferiorly/medially to this pole. This was consistent with an enlarged inferior parathyroid. Careful blunt dissection was employed to free the structure from its surrounding soft tissue attachments it was then circumferentially freed so that it remained suspended by its vascular pole only. Specimen was amputated with the use of our LigaSure device and was passed off the field for frozen section confirmation. (Later, pathology telephoned the room to notify us that indeed this represented a large parathyroid gland was some fatty infiltration. As we awaited this result, I irrigated the surgical cavity with sterile water examined for hemostasis. Finding this intact, I also developed the plane between the thyroid capsule and the strap muscles to try to identify the second parathyroid gland on this side superiorly. The tracheoesophageal groove was also developed bluntly and I confirmed an intact si gnal from our right recurrent laryngeal nerve using our Nims monitor. Right internal jugular ex vivo blood draws were made with a 22-gauge needle and syringe at 10 and 15 minutes were 607 and 481, respectively. Given this result I was immediately concerned that we had not identified the culprit parathyroid gland and had not identified anything enlarged on the right so I made the decision to obtain new PTH values from each internal jugular vein as a means of assisting with our localization and then proceeded with dissecting out the left side. As I worked to elevate the left thyroid lobe the PTH values returned as 367 and 387 on the right and left, respectively. Unfortunately these were interpreted as largely equivocal and I proceeded to continue my search for parathyroid tissue in the left neck. I first saw at the location of the inferior parathyroid?assuming it would have a similar location is on the right side, however, I was unable to identify a parathyroid gland despite extensive search through the perithyroidal soft tissues and thyroid thymic ligament inferiorly. Thus I transition to searching for the left superior parathyroid gland and in doing so developed the left tracheoesophageal groove were identified the recurrent laryngeal nerve and a strong signal from our Nims monitor. During the course of this dissection I began to note to a brown- colored tubular structure extending parallel to the thyroid nearly along its full length. I was largely convinced this represented a parathyroid adenoma but given the sidedness and the large size of the gland also wanted to exclude the possibility of this representing an abnormally colored esophagus. Therefore, I asked anesthesia to kindly place a orogastric tube and upon completion of this task was able to palpate for the esophagus separate from this lesion in question. Once this confirmation was made a extended my dissection inferiorly and was able to develop the tip of a large parathyroid adenoma. I dissected t his back superiorly towards the vascular pole where it was amputated with the use of LigaSure device. Believing this to be the patient's single adenoma I then obtained left internal jugular PTH values at 10 and 15 minutes. Given my belief that I had found the patient's adenoma I began closure of the neck after confirming hemostasis within the surgical cavity. However when patient's latest PTH values returned at 246 and 269, respectively, I was concerned for additional abnormal parathyroid tissue. The strap muscles were reincised and I began a another search for the right superior parathyroid gland. At this time I started much lower in the neck with my search?adjacent to the location of the patient's recurrent laryngeal nerve and quickly identified a markedly enlarged and darkly pigmented parathyroid adenoma that was deeply embedded in the soft tissue. At this point I became concerned for patient's risk for postoperative hypoparathyroidism with a still outstanding location for the left inferior parathyroid and now this markedly pathologic right superior parathyroid. I reached out to pathology immediately to see if they still had our original specimen from the right inferior position that could be used for possible autotransplantation but unfortunately found that that specimen had undergone freezing and fixation with formaldehyde. On hearing this information, I made 1 more quick search of the patient's left neck and biopsied a potential parathyroid gland located at the inferior pole of the left thyroid lobe sending it for frozen section with a titanium clip marking this location. Then, not wanting to devascularize this or any other gland in that position I abandon further research and I returned to the right neck where the right superior parathyroid gland was dissected to its vascular pole. Once this gland was removed PTH values were obtained from the right internal jugular vein at 5, 10, and 15 minutes ex vivo which returned at 57, 36.3, and 32.3, respectively. Satisfied with this result, the case was terminated and hemostasis was once again confirmed in the surgical bed. Then I performed closure of the neck in layers. The strap muscles were run with a 3-0 Vicryl suture to reapproximate the raphe, but a gap was left in the inferior most portion of the strap muscles. Then the platysmal layer was reapproximated with interrupted 3-0 Vicryl. Additional local anesthetic was instilled. The skin was closed using a running 4-0 Monocryl in a subcuticular fashion. Steri-Strips and Telfa OpSite was applied as a dressing. Patient was then awoken from general anesthetic and taken to PACU for ongoing recovery. Complications None Admit VTE Documentation VTE Mechan Device Prophylaxis: SCD's Procedures Endocrine CF Procedures [id number]: Other Procedure See Report (CPT 38536 parathyroidec vinnie)
[2024-02-23 18:15] LABS: PTHIN 15.8 pg/mL (18.4-80.1)
[2024-02-23] MEDS: 0.9% Normal Saline (1000mL) 1,000 ML 75 ML IV (19:32)
--- NOTE | 2024-02-23 20:02 | DCINST_ITS ---
Discharge Instructions Diet Discharge Diet: No restrictions (However recommend a liquid to soft diet initially postoperatively) Activity Discharge Activity: May Not Drive (While it remains difficult to check blind spots quickly) May shower in (days): 2 Ice area for (Minutes): 20 Lifting Restrictions: No lifting greater than 15 pounds for 2 weeks after surgery Additional Activity Instructions:: Please keep head elevated when resting at home for first 2 days after surgery. Please range neck motion regularly. Dressing / Incision Call your doctor if your incision/area has: Continuous Slow Oozing, Sudden Increased Bleeding, Increased Pain/ Swelling, Increased Redness and Swelling at the incision site Call your doctor if you observe: Numbness or Tingling Remove Dressing in: 2 days (Please leave Steri-Strips intact until they fall off spontaneously or are taken off at your follow-up visit) Cleanse incision/area with: Soap & Water Follow Up Care Please Follow Up With: Evens Borja MD When: 7 days postop Test Results: Test results from this visit will be discussed in further detail at your follow- up appointment, if applicable. Discharge Plan Admission Admit Date/Time: 02/23/24 17:34 Primary Reason for Your Visit: Parathyroidectomy Attending Provider: Evens Borja Primary Care Provider: Zeinab Walton Instructions Additional Instructions / Restrictions: Please take regular strength Tums if experiencing numbness of fingers or lips and notify Dr. Borja immediately Discharge Orders/Prescriptions Prescriptions: New calcitriol 0.25 mcg Capsule 0.5 mcg PO DAILY 14 Days Qty: 28 0RF calcium carbonate-vitamin D3 [Oyster Shell Calcium-Vit D3] 500 mg-5 mcg (200 unit) Tablet 1 tab PO TIDCM 14 Days Qty: 42 0RF Continued estradiol 1 mg tablet 1 mg PO DAILY Breo Ellipta 200-25 mcg/dose blister with device 1 inh INHALATION Q24H Qty: 3 3RF allergy shot subcut Rx Instructions: Q WEEK triamcinolone acetonide 55 mcg/actuation aerosol 55 mcg intranasal DAILY fexofenadine [Isaura Allergy] 180 mg Tablet 180 mg PO DAILY cranberry 400 mg Capsule 500 mg PO DAILY Rx Instructions: administer with meals multivitamin Capsule 1 cap PO DAILY montelukast 10 mg tablet 10 mg PO QPM Qty: 90 3RF albuterol sulfate 90 mcg/actuation HFA aerosol inhaler 2 puff INHALATION Q4H PRN (Reason: shortness of breath or wheezing) Qty: 18 3RF Referrals / Follow Up: Zeinab Walton MD [Primary Care Provider] - Disposition Disposition (needs filled in before D/C Order can be placed): Home, Self Care
[2024-02-23] MEDS: Metoclopramide 10 MG/2 ML Vial IV (20:17)
[2024-02-23] MEDS: Acetaminophen 500 MG Tablet PO (20:19)
[2024-02-23] MEDS: Calcitriol 0.25 MCG Capsule 0.5 MCG PO (20:23)
[2024-02-23] MEDS: BENZOCAINE/MENTHOL 1 LOZENGE 2 LOZENGE MUCOUS MEM (20:23)
[2024-02-24 01:02] VITALS: BP 152/76; PULSE 90; RESP 20; TEMP 36.7; O2SAT 96
[2024-02-24 03:22] VITALS: BP 142/82; PULSE 91; RESP 18; TEMP 36.7; O2SAT 94
[2024-02-24] MEDS: BENZOCAINE/MENTHOL 1 LOZENGE 2 LOZENGE MUCOUS MEM (03:26)
[2024-02-24 07:20] LABS: Calcium,Total 8.5 mg/dL (8.5-10.1)
[2024-02-24 07:22] VITALS: BP 149/67; PULSE 89; RESP 16; TEMP 37.2; O2SAT 95
[2024-02-24] MEDS: Calcium Carb/Vitamin D 1 TABLET Tablet PO (07:33)
[2024-02-24 07:47] LABS: PTHIN 8.3 pg/mL (18.4-80.1)
--- NOTE | 2024-02-24 09:44 | PN.SURG_ITS ---
Subjective Subjective Patient reports she is doing well with no issues. Objective Data Objective Data Vital Signs: Vital Signs Temp Pulse Resp BP Pulse Ox O2 Del Method 98.9 F 89 16 149/67 H 95 Room Air 02/24/24 07:22 02/24/24 07:22 02/24/24 07:22 02/24/24 07:22 02/24/24 07:22 02/24/24 07:22 Oxygen Delivery Method Room Air Weight: 304 lb 3.806 oz Body Mass Index (BMI) 47.6 Intake & Output: Intake and Output for Last 24 Hours 02/22/24 02/23/24 02/24/24 23:59 23:59 23:59 Intake Total 2139.5 / 2139.5 500 / 500 Output Total 350 / 350 1500 / 1500 Balance 1789.5 / 1789.5 -1000 / -1000 Lab / Micro Data Labs: Laboratory Results - last 24 hr 02/23/24 11:15: PTH Intact 132.4 H 02/23/24 12:22: PTH Intact 539.1 H 02/23/24 12:51: PTH Intact 607.2 H 02/23/24 12:56: PTH Intact 480.5 H 02/23/24 14:32: PTH Intact 367.2 H 02/23/24 14:35: PTH Intact 386.7 H 02/23/24 15:50: PTH Intact 246.4 H 02/23/24 15:56: PTH Intact 269.0 H 02/23/24 16:46: PTH Intact 57.0 02/23/24 16:53: PTH Intact 36.3 02/23/24 16:57: PTH Intact 32.3 02/23/24 17:52: PTH Intact 15.8 L 02/24/24 06:27: Calcium 8.5, PTH Intact 8.3 L Physical Exam Const oriented x3 and no apparent distress Resp normal respiratory effort GI normal to inspection, nondistended, normoactive bowel sounds Assessment & Plan Assessment/Plan (1) Hyperparathyroidism: PLAN: Patient reports she is in minimal pain. There is no swelling or ecchymosis or erythema over the incision. I will try regular diet and then discharge her home on calcium supplementation. Lauro Mendoza MD Pager: [facility] [address] [place] [address], [address] [place] [address] Office:
[2024-02-24] MEDS: Calcitriol 0.25 MCG Capsule 0.5 MCG PO (09:57)
[2024-02-24] MEDS: Acetaminophen 500 MG Tablet PO (10:00)
== END 2024-02-24 11:00 | disposition home or self-care (01) ==
LOC: SDC 18:39 → MS3 18:40
PROVIDERS: Admitting Provider Surgery; PCP Internal Medicine; Referring Provider Surgery; Visit Provider Surgery
PROC: (CPT 60500; principal; 2024-02-23 10:45)
DX: E21.0 Primary hyperparathyroidism (principal); Z79.899 Other long term (current) drug therapy; Z79.51 Long term (current) use of inhaled steroids; J45.909 Unspecified asthma, uncomplicated
CPT/HCPCS: 60500; 00320; 36415; 82310; 83970; 88305; 88331; 88332; 96361; 96374; 99221; A4648; J7030; J7120; G0378; J2405

== ENCOUNTER → 2024-02-29 | Outpatient (CLI) | payer BC, SELFPAY ==
[2024-02-29 15:00] LABS: Calcium,Total 9.4 mg/dL (8.5-10.1)
[2024-02-29 15:13] LABS: PTHIN 14.9 pg/mL (18.4-80.1)
== END | disposition home or self-care (01) ==
LOC: LAB 13:34
PROVIDERS: PCP Internal Medicine; Referring Provider Surgery; Visit Provider Surgery
DX: Z90.89 Acquired absence of other organs (principal); Z98.890 Other specified postprocedural states
CPT/HCPCS: 82310; 83970

== ENCOUNTER → 2024-03-12 | Outpatient (CLI) | payer BC, SELFPAY ==
[2024-03-12 09:49] LABS: Calcium,Total 9.4 mg/dL (8.5-10.1)
[2024-03-12 09:54] LABS: PTHIN 39.1 pg/mL (18.4-80.1)
== END | disposition home or self-care (01) ==
LOC: LAB 09:12
PROVIDERS: PCP Internal Medicine; Referring Provider Surgery; Visit Provider Surgery
DX: Z90.89 Acquired absence of other organs (principal); Z98.890 Other specified postprocedural states
CPT/HCPCS: 36415; 82310; 83970

== ENCOUNTER → 2024-03-28 | Outpatient (CLI) | payer BC, SELFPAY ==
[2024-03-28 09:11] LABS: Calcium,Total 8.7 mg/dL (8.5-10.1)
[2024-03-28 09:17] LABS: PTHIN 47.4 pg/mL (18.4-80.1)
== END | disposition home or self-care (01) ==
LOC: LAB 07:49
PROVIDERS: PCP Internal Medicine; Referring Provider Surgery; Visit Provider Surgery
DX: Z98.890 Other specified postprocedural states (principal); Z90.89 Acquired absence of other organs
CPT/HCPCS: 36415; 82310; 83970

== ENCOUNTER → 2024-04-11 | Outpatient (CLI) | payer BC, SELFPAY | END | disposition home or self-care (01) | PROVIDERS: PCP Internal Medicine; Referring Provider Physician Assistant; Visit Provider Physician Assistant | DX: Z98.890 Other specified postprocedural states (principal); Z90.89 Acquired absence of other organs | CPT/HCPCS: 36415; 82310; 83970 ==

== ENCOUNTER → 2024-04-26 | Outpatient (CLI) | payer BC, SELFPAY ==
[2024-04-26 12:14] LABS: Calcium,Total 8.7 mg/dL (8.5-10.1)
== END | disposition home or self-care (01) ==
LOC: LAB 11:25
PROVIDERS: PCP Internal Medicine; Referring Provider Surgery; Visit Provider Surgery
DX: Z90.89 Acquired absence of other organs (principal); Z98.890 Other specified postprocedural states
CPT/HCPCS: 36415; 82310; 83970

== ENCOUNTER → 2024-05-04 | Outpatient (CLI) | payer BC, SELFPAY ==
--- NOTE | 2024-05-04 11:26 | RAD_ITS ---
STUDY: X-RAY - ABDOMEN/PELVIS REASON FOR EXAM: Female, 48 years old. Renal stones. TECHNIQUE: Single AP view of the abdomen / pelvis on 2 images. COMPARISON: February 18, 2023 FINDINGS: Normal visualized lung bases. Normal bowel gas pattern with air seen to the rectum. Stable small multiple calcifications projected over the lower pole left kidney. The visualized liver, spleen and kidneys are grossly normal in size and morphology. Normal soft tissue structures. Normal visualized osseous structures. RAD/Abdomen Single View IMPRESSION: Stable left nephrocalcinosis. No acute finding. Electronically Signed: Jason Carrillo MD at 14:43 EDT ,
== END | disposition home or self-care (01) ==
LOC: MTRAD 11:25
PROVIDERS: PCP Internal Medicine; Referring Provider Urology; Visit Provider Urology
DX: N20.0 Calculus of kidney (principal)
CPT/HCPCS: 74018

== ENCOUNTER → 2024-09-17 | Outpatient (CLI) | payer BC, SELFPAY ==
[2024-09-17 11:06] LABS: Calcium,Total 8.7 mg/dL (8.5-10.1)
[2024-09-17 11:12] LABS: PTHIN 46.2 pg/mL (18.4-80.1)
== END | disposition home or self-care (01) ==
LOC: LAB 09:58
PROVIDERS: PCP Internal Medicine; Referring Provider Surgery; Visit Provider Surgery
DX: Z90.89 Acquired absence of other organs (principal); Z98.890 Other specified postprocedural states
CPT/HCPCS: 36415; 82310; 83970

== ENCOUNTER → 2025-04-12 | Outpatient (CLI) | payer OTHER, SELFPAY ==
[2025-04-12 12:35] LABS: Hematocrit 39.7 % (37-47); Hemoglobin 13.0 g/dL (12.0-15.0); Immature Granulocytes Count 0.020 X10^3/uL (0.0-0.0); Mean Corp Hgb Conc 32.7 g/dL (32-36); Mean Corpuscular Volume 90.6 fL (81-99); Mean Platelet Vol. 10.6 fl (6.2-12.0); NRBC Flagged by Analyzer 0 % (0-5); Platelet Count 273 K/mm3 (150-450); RBC Distribution Width CV 13.4 % (11.6-14.6); RBC Distribution Width SD 44.4 fl (35.1-43.9); Red Blood Count 4.38 M/mm3 (4.2-5.4); White Blood Count 5.1 K/mm3 (4.4-11.0)
[2025-04-12 13:42] LABS: AST(SGOT) 15 U/L (<=31); Alanine Aminotransfer ALT/SGPT 16 U/L (<=34); Albumin, Serum 4.0 g/dL (3.5-5.0); Alkaline Phosphatase 59 U/L (35-104); Anion Gap 13 (5-15); BUN 15 mg/dL (4-19); BUN/Creat Ratio 21.1 RATIO (10-20); Calcium,Total 9.3 mg/dL (7.6-11.0); Carbon Dioxide 21.3 mmol/L (21.0-32.0); Chloride 103 mmol/L (98-108); Cholesterol 210 mg/dL (<=200); Globulin 3.1 g/dL (2.2-4.2); Glucose 99 mg/dL (70-99); Low Density Lipoprotein Calc. 91 mg/dL; Potassium 4.6 mmol/L (3.3-5.1); Triglycerides 150 mg/dL; Very Low Density Lipoprotein 30 mg/dL (5-40); cholesterol:hdl ratio screen 2.37
[2025-04-12 13:57] LABS: Vitamin D,25 Hydroxy 30.2 ng/mL (30-100)
== END | disposition home or self-care (01) ==
LOC: BIMLAB 08:02
PROVIDERS: PCP Internal Medicine; Referring Provider Physician Assistant; Visit Provider Physician Assistant
DX: Z00.00 Encounter for general adult medical examination without abnormal findings (principal); R25.2 Cramp and spasm
CPT/HCPCS: 36415; 80053; 80061; 82306; 84443; 85025

== ENCOUNTER → 2025-06-13 | Outpatient (CLI) | payer OTHER, SELFPAY ==
--- OUTSIDE RECORDS SUMMARY | 2025-06-13 16:41 | XMS RPT_ITS | CCD ---
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 Brandon Ramsey Referring Provider [phone] Dr. Rigoberto Black Attending Provider Care Physician, No Primary Primary Care Provider Unavailable Care Physician, No Primary Referring Provider Un available Dr. Zeinab Walton Primary Care Provider Dr. Zeinab Walton Attending Provider [phone] Unavailable Primary Care Provider Unavailbecky e Care Physician, No Primary Referring Provider Un available Dr. Zeinab Walton Primary Care Provider Dr. Zeinab Walton Attending Provider [phone] Dr. Zeinab Walton Primary Care Provider Dr. Zeinab Watlon Referring Provider Dr. Haile Garcias Attending Provider [phone] Dr. Zeinab Walton Primary Care Provider Dr. Zeinab Walton Referring Provider Dr. Haile Garcias Attending Provider [phone] Unavailable Primary Care Provider Dr. Zeinab Tortter MD Primary Care Provider [phone] Dr. Dali Biswas MD Attending Provider Dr. Zeinab Walton MD Referring Provider Gregor QUIROZ-CBrenda Attending Provider Dr. Dali Biswas MD Attending Provider Elías Hudson Attending Provider [phone] Elías Hudson Referring Provider [phone] GINETTE LARIOS Attending Unavailable APOORVA, GINETTE Referring Unavailable Isabelle, Zeinab Referring Unavailable Brenda Bundy NP Attending Unavailable Isabelle, Zeinab Primary Care Unavailable Elías Hudson Attending Unavailable Isabelle, Zeinab Primary Care Unavailable Isabelle, Zeinab Referring Unavailable Evens Borja Attending Unavailable Evens Borja Referring Unavailable Isabelle, Zeinab Primary Care Unavailable Evens Borja Attending Unavailable Evens Borja Referring Unavailable Isabelle, Zeinab Primary Care Unavailable Dali Biswas Attending Unavailable Dali Biswas Referring Unavailable Isabelle, Zeinab Primary Care Unavailable [place], Zeinab Primary Care Unavailable Elías Hudson Attending Unavailable Elías Hudson Referring Unavailable Allergies Allergy Classification Reported Allergen(s) Allergy Type Date of Onset Reaction(s) Facility (20 sources) Codeine; Translations: [CODEINE] Drug Allergy 6 Rash [facility] Work Phone: (15 sources) Penicillins; Translations: [PENICILLINS] Propensity to adverse reactions 1 Diarrhea, Other: See Comments [facility] (7 sources) Penicillins Drug Allergy 1 Diarrhea, Other: See Comments [facility] (2 sources) Penicillins Drug Allergy 1 Diarrhea, Other: See Comments [facility] (1 source) Codeine Drug Allergy 5 [facility] (1 source) Penicillins Drug allergy (disorder) 5 [facility] Medications Current Medications Medication Drug Class(es) Dates Sig (Normalized) Sig (Original) acetaminophen 325 mg / HYDROcodone bitartrate 5 mg oral tablet (2 sources) Opioid Agonist Start: 12-20-2022 take 1 tablet by mouth every four hours Hydrocodone-Aceta minophen Active 1 TABLET PO Q4H 20 4 December 20, 2022 allergy shot (9 sources) Start: 04-12-2023 allergy shot Active SC April 11, 2023 11:00pm Q WEEK Start: 04-12-2023 allergy shot A ctive DC April 12, 2023 12:00am Q WEEK cholecalciferol 1.25 mg oral capsule (1 source) Vitamin D Start: 04-16-2025 take 1 capsule by mouth every week Cholecalciferol (Vitamin D3) 1,250 mcg (50,000 unit) capsule Active 1250 ug PO EVERY WEEK 8 0 April 16, 2025 12:00am cranberry fruit extract (CRANBERRY ORAL) (15 sources) cranberry fruit extract (CRANBERRY ORAL) Take by mouth. Active cranberry fruit extract (CRANBERRY ORAL) Take by mouth. 0 Active Comment on above: Take by mouth. Cranberry Fruit (11 sources) Non-Standardized Food Allergenic Extract, Non-Standardized Plant Allergenic Extract Start: 01-13-2023 take 1 capsule by mouth once daily at mealtime Cranberry Fruit 400 mg Capsule Active 500 mg PO DAILY January 13, 2023 12:00am administer with meals Start: 01-13-2023 take 400 mg by mouth twice daily at mealtime Cranberry Active 400 MG PO TWICE A DAY January 12, 2023 11:00pm administer with meals Start: 01-13-2023 take 400 mg by mouth twice daily at mealtime Cranberry Active 400 MG PO TWICE A DAY January 13, 2023 12:00am administer with meals estradiol 1 mg oral tablet (20 sources) Estrogen Start: 04-16-2019 End: 04-12-2025 take 1 tablet by mouth once daily Estradiol 1 mg tablet Active 1 mg PO DAILY April 16, 2019 12:00am Comment on above: TAKE 1 TABLET BY DANNY TH EVERY DAY Take 1 tablet by danny th once daily. fexofenadine hydrochloride 180 mg oral tablet (20 sources) Histamine-1 Receptor Antagonist Start: 04-17-2019 take 1 tablet by mouth once daily Fexofenadine (Isaura Allergy) 180 mg Tablet Active 180 mg PO DAILY January 13, 2023 12:00am Comment on above: Take by mouth. fluconazole 150 mg oral tablet (2 sources) Azole Antifungal Start: 01-20-2023 take 1 tablet by mouth once daily Fluconazole (Diflucan) 150 mg tablet Active 150 MG PO DAILY 2 January 20, 2023 12:00am Fluticasone Propion-Salmeterol (12 sources) Corticosteroid, beta2-Adrenergic Agonist Start: 07-23-2025 Fluticasone Propion-Salmeterol (Advair Diskus) 500-50 mcg/dose blister with device Active 1 NMA INHALATION TWICE A DAY 3 3 April 10, 2025 10:36am Start: 02-05-2025 End: 04-10-2025 Fluticasone Propion-Salmeter ol (Advair Diskus) 500-50 mcg/dose blister with device Discontinued 1 NMA INHALATION TWICE A DAY 60 February 05, 2025 9:44am April 10, 2025 10:36am Start: 11-26-2024 End: 02-05-2025 Fluticasone Propion-Salmeter ol (Advair Diskus) 500-50 mcg/dose blister with device Discontinued 1 NMA INHALATION TWICE A DAY 60 November 26, 2024 8:36am February 05, 2025 9:44am Start: 11-23-2024 End: 11-26-2024 Fluticasone Propion-Salmeter ol (Advair Diskus) 500-50 mcg/dose blister with device Discontinued 1 NMA INHALATION TWICE A DAY 60 November 23, 2024 1:00am November 26, 2024 8:36am Multivitamin Capsule (3 sources) Start: 01-13-2023 Multivitamin Capsule Active 1 NMA PO DAILY January 13, 2023 12:00am multivitamin ORAL tablet (15 sources) Start: 01-05-2011 take 1 tablet by mouth once daily multivitamin ORAL tablet Take 1 tablet by mouth once daily. 0 01/05/2011 Active Comment on above: Take 1 tablet by danny once daily. Multivitamin preparation (8 sources) Start: 01-13-2023 take 1 capsule by mouth once daily Multivitamin Active 1 CAP PO DAILY January 12, 2023 11:00pm Start: 01-13-2023 take [address] [facility] once daily Multivitamin Active 1 CAP PO DAILY January 13, 2023 12:00am ondansetron 4 mg disintegrating oral tablet (2 sources) Serotonin-3 Receptor Antagonist Start: 12-20-2022 take 4 mg by mouth every eight hours Ondansetron Active 4 MG PO Q8H December 20, 2022 12:00am phenazopyridine hydrochloride 200 mg oral tablet (1 source) Start: 04-04-2023 take 1 tablet by mouth three times daily as needed Phenazopyridine (Pyridium) 200 mg tablet Active 200 MG PO 3 TIMES DAILY NEEDED 30 7 December 21, 2022 12:00am triamcinolone acetonide 0.055 mg/actuat metered dose nasal spray (6 sources) Corticosteroid Start: 10-13-2023 triamcinolone acetonide (NASACORT AQ) 55 mcg nasal inhaler Triamcinolone Acetonide Active MCG INTRANASAL October 13, 2023 1:00am 10/13/2023 Active Start: 10-13-2023 triamcinolone acetonide (NASACORT AQ) 55 mcg nasal inhaler Triamcinolone Acetonide Active MCG INTRANASAL October 13, 2023 1:00am 0 10/13/2023 Active Start: 10-13-2023 Triamcinolone Acetonide Active MCG INTRANASAL October 13, 2023 1:00am Start: 10-13-2023 Triamcinolone Acetonide Active MCG INTRANASAL October 13, 2023 12:00am Triamcinolone Acetonide 55 mcg/actuation aerosol (3 sources) Start: 10-13-2023 Triamcinolone Acetonide 55 mcg/actuation aerosol Active 55 ug INTRANASAL DAILY October 13, 2023 1:00am Completed/Discontinued Medications Medication Drug Class(es) Dates Sig (Normalized) Sig (Original) acetaminophen 325 mg / oxyCODONE hydrochloride 5 mg oral tablet (11 sources) Opioid Agonist Start: 01-20-2023 End: 03-02-2023 Oxycodone-Acetamino phen (Percocet) 5-325 mg tablet Discontinued 1 {tbl} PO Q8H as needed for pain 14 3 0 January 20, 2023 March 02, 2023 1:44pm Calculus of left kidney Calculus of kidney [id number] actuat albuterol 0.09 mg/actuat metered dose inhaler (20 sources) beta2-Adrenergic Agonist Start: 04-16-2019 End: 07-25-2023 Albuterol Sulfate 90 mcg/actuation HFA aerosol inhaler Discontinued 2 NMA INHALATION Q4H as needed for shortness of breath or wheezing 18 3 July 25, 2023 9:43am July 25, 2023 10:17am Start: 04-16-2019 End: 07-25-2023 take 1 puff(s) by inhalation every four hours Albuterol Sulfate Discontinued 2 PUFF INHALATION Q4H 18 July 25, 2023 9:43am July 25, 2023 10:17am Start: 12-26-2018 take 2 puff(s) by in halation every four hours as needed for wheezing albuterol HFA (VENTOLIN HFA) 90 mcg/actuation inhaler Indications: Bronchitis Inhale 2 Puffs as instructed every 4 hours as needed for Wheezing/Shortness of Breath. 1 Inhaler 1 12/26/2018 Active Comment on above: Inhale 2 Puffs as in structed every 4 hours as needed for Wheezing/Shortness of Breath. calcitriol 0.57981 mg oral capsule (3 sources) Vitamin D3 Analog Start: 2023 End: 2023 take 2 capsules by mouth once daily Calcitriol 0.25 mcg Capsule Discontinued 0.5 ug PO DAILY 28 14 0 February 24, 2024 12:00am March 28, 2024 1:19pm calcium carbonate 1250 mg / cholecalciferol 200 unt oral tablet (13 sources) Vitamin D Start: 2023 End: 2024 OYSTER SHELL CALCIUM-VITAMIN D 500 mg-5 mcg (200 unit) per tablet 03/28/2024 04/12/2025 Discontinued (Course of therapy completed) Start: 03-28-2024 End: 04-10-2025 Calcium Carbonate-Vitamin D3 (Oyster Shell Calcium-Vit D3) 500 mg-5 mcg (200 unit) tablet Discontinued 1 {tbl} PO daily 14 14 0 March 28, 2024 1:19pm April 10, 2025 10:14am Start: 02-24-2024 End: 03-28-2024 Calcium Carbonate-Vitamin D3 (Oyster Shell Calcium-Vit D3) 500 mg-5 mcg (200 unit) tablet Discontinued 1 {tbl} PO 3 TIMES DAILY WITH MEALS 42 14 0 March 05, 2024 8:09am March 28, 2024 1:20pm cephalexin 500 mg oral capsule (20 sources) Cephalosporin Antibacterial Start: 04-07-2023 End: 04-12-2023 take 1 capsule by mouth every twelve hours Cephalexin 500 mg capsule Discontinued 500 mg PO EVERY 12 HOURS 6 3 0 April 07, 2023 12:00am April 12, 2023 9:49am post-operative Start: 01-20-2023 End: 03-02-2023 take 1 capsule by mouth every twelve hours Cephalexin 500 mg capsule Discontinued 500 mg PO EVERY 12 HOURS 6 3 0 January 20, 2023 12:00am March 02, 2023 1:44pm post-operative Start: 12-21-2022 take 500 mg by mouth every twelve hours Cephalexin Active 500 MG PO EVERY 12 HOURS 6 December 21, 2022 12:00am fluticasone propionate 0.05 mg/actuat metered dose nasal spray (20 sources) Corticosteroid Start: 04-17-2019 End: 10-13-2023 Fluticasone Propionate (Flonase Allergy Relief) 50 mcg/actuation spray,suspension Discontinued 2 NMA INTRANASAL DAILY 16 September 02, 2021 4:11pm October 13, 2023 9:18am Start: 04-17-2019 End: 10-13-2023 Fluticasone Propionate (Flon ase Allergy Relief) 50 mcg/actuation spray,suspension Discontinued 2 SPRAY INTRANASAL DAILY September 02, 2021 4:11pm October 13, 2023 9:18am Fluticasone Furoate-Vilanterol (20 sources) Corticosteroid, beta2-Adrenergic Agonist Start: 11-23-2024 End: 11-23-2024 Fluticasone Furoate-Vilanterol (Breo Ellipta) 200-25 mcg/dose blister with device Discontinued 1 NMA INHALATION Q24H 3 November 23, 2024 10:54am November 23, 2024 12:28pm Unspecified asthma, uncomplicated Start: 05-18-2024 End: 11-23-2024 Fluticasone Furoate-Vilanter ol (Breo Ellipta) 200-25 mcg/dose blister with device Discontinued 1 NMA INHALATION Q24H 3 May 18, 2024 11:46am November 23, 2024 10:54am Unspecified asthma, uncomplicated Start: 05-17-2024 End: 05-18-2024 Fluticasone Furoate-Vilanter ol (Breo Ellipta) 200-25 mcg/dose blister with device Discontinued 1 NMA INHALATION Q24H 3 3 May 17, 2024 3:36pm May 18, 2024 11:46am Unspecified asthma, uncomplicated Start: 02-27-2024 End: 05-17-2024 Fluticasone Furoate-Vilanter ol (Breo Ellipta) 200-25 mcg/dose blister with device Discontinued 1 NMA INHALATION Q24H 3 February 27, 2024 10:40am May 17, 2024 3:36pm Unspecified asthma, uncomplicated Start: 03-02-2023 End: 02-27-2024 Fluticasone Furoate-Vilanter ol (Breo Ellipta) 200-25 mcg/dose blister with device Discontinued 1 NMA INHALATION Q24H 3 March 02, 2023 2:09pm February 27, 2024 10:40am Unspecified asthma, uncomplicated Start: 03-02-2023 Fluticasone Fu roate-Vilanterol (Breo Ellipta) 200-25 mcg/dose blister with device Active 1 INH INHALATION Q24H March 02, 2023 1:09pm Start: 03-02-2023 Fluticasone Fu roate-Vilanterol (Breo Ellipta) 200-25 mcg/dose blister with device Active 1 INH INHALATION Q24H March 02, 2023 2:09pm Start: 01-06-2022 End: 03-02-2023 Fluticasone Furoate-Vilanter ol (Breo Ellipta) 200-25 mcg/dose blister with device Discontinued 1 NMA INHALATION Q24H 3 January 06, 2022 7:55am March 02, 2023 2:12pm Unspecified asthma, uncomplicated Start: 01-06-2022 End: 03-02-2023 Fluticasone Furoate-Vilanter ol (Breo Ellipta) 200-25 mcg/dose blister with device Discontinued 1 INH INHALATION Q24H 3 January 06, 2022 6:55am March 02, 2023 1:12pm Start: 01-06-2022 End: 03-02-2023 Fluticasone Furoate-Vilanter ol (Breo Ellipta) 200-25 mcg/dose blister with device Discontinued 1 INH INHALATION Q24H 3 January 06, 2022 7:55am March 02, 2023 2:12pm Start: 01-06-2022 Fluticasone Fu roate-Vilanterol (Breo Ellipta) 200-25 mcg/dose blister with device Active 1 INH INHALATION Q24H 3 January 06, 2022 7:55am Start: 07-22-2021 End: 01-06-2022 Fluticasone Furoate-Vilanter ol (Breo Ellipta) 200-25 mcg/dose blister with device Discontinued 1 NMA INHALATION Q24H 60 July 22, 2021 7:54am January 06, 2022 8:00am Unspecified asthma, uncomplicated Start: 07-22-2021 End: 01-06-2022 Fluticasone Furoate-Vilanter ol (Breo Ellipta) 200-25 mcg/dose blister with device Discontinued 1 INH INHALATION Q24H 60 July 22, 2021 6:54am January 06, 2022 7:00am Start: 07-22-2021 End: 01-06-2022 Fluticasone Furoate-Vilanter ol (Breo Ellipta) 200-25 mcg/dose blister with device Discontinued 1 INH INHALATION Q24H 60 July 22, 2021 7:54am January 06, 2022 8:00am Start: 01-21-2021 End: 07-22-2021 Fluticasone Furoate-Vilanter ol (Breo Ellipta) 200-25 mcg/dose blister with device Discontinued 1 NMA INHALATION Q24H 60 January 21, 2021 8:09am July 22, 2021 7:55am Unspecified asthma, uncomplicated Start: 01-21-2021 End: 07-22-2021 Fluticasone Furoate-Vilanter ol (Breo Ellipta) 200-25 mcg/dose blister with device Discontinued 1 INH INHALATION Q24H 60 January 21, 2021 7:09am July 22, 2021 6:55am Start: 01-21-2021 End: 07-22-2021 Fluticasone Furoate-Vilanter ol (Breo Ellipta) 200-25 mcg/dose blister with device Discontinued 1 INH INHALATION Q24H 60 January 21, 2021 8:09am July 22, 2021 7:55am Start: 09-22-2020 End: 01-21-2021 Fluticasone Furoate-Vilanter ol (Breo Ellipta) 200-25 mcg/dose blister with device Discontinued 1 NMA INHALATION Q24H 60 September 22, 2020 9:14am January 21, 2021 8:09am Unspecified asthma, uncomplicated Start: 09-22-2020 End: 01-21-2021 Fluticasone Furoate-Vilanter ol (Breo Ellipta) 200-25 mcg/dose blister with device Discontinued 1 INH INHALATION Q24H 60 September 22, 2020 8:14am January 21, 2021 7:09am Start: 09-22-2020 End: 01-21-2021 Fluticasone Furoate-Vilanter ol (Breo Ellipta) 200-25 mcg/dose blister with device Discontinued 1 INH INHALATION Q24H 60 September 22, 2020 9:14am January 21, 2021 8:09am Start: 05-22-2020 End: 09-22-2020 Fluticasone Furoate-Vilanter ol (Breo Ellipta) 200-25 mcg/dose blister with device Discontinued 1 NMA INHALATION Q24H 60 6 May 22, 2020 8:08am September 22, 2020 9:14am Unspecified asthma, uncomplicated Start: 05-22-2020 End: 09-22-2020 Fluticasone Furoate-Vilanter ol (Breo Ellipta) 200-25 mcg/dose blister with device Discontinued 1 INH INHALATION Q24H 60 May 22, 2020 7:08am September 22, 2020 8:14am Start: 05-22-2020 End: 09-22-2020 Fluticasone Furoate-Vilanter ol (Breo Ellipta) 200-25 mcg/dose blister with device Discontinued 1 INH INHALATION Q24H 60 May 22, 2020 8:08am September 22, 2020 9:14am Start: 11-27-2019 End: 05-22-2020 Fluticasone Furoate-Vilanter ol (Breo Ellipta) 200-25 mcg/dose blister with device Discontinued 1 NMA INHALATION Q24H 60 6 November 27, 2019 12:00am May 22, 2020 8:08am Unspecified asthma, uncomplicated Start: 11-27-2019 End: 05-22-2020 Fluticasone Furoate-Vilanter ol (Breo Ellipta) 200-25 mcg/dose blister with device Discontinued 1 INH INHALATION Q24H 60 November 26, 2019 11:00pm May 22, 2020 7:08am Start: 11-27-2019 End: 05-22-2020 Fluticasone Furoate-Vilanter ol (Breo Ellipta) 200-25 mcg/dose blister with device Discontinued 1 INH INHALATION Q24H 60 November 27, 2019 12:00am May 22, 2020 8:08am Start: 04-17-2019 End: 11-27-2019 Fluticasone Furoate-Vilanter ol (Breo Ellipta) 100-25 mcg/dose blister with device Discontinued 1 NMA INHALATION Q24H 60 5 November 01, 2019 2:35pm November 27, 2019 6:57am Shortness of breath after inhalation, rinse mouth with water and spit out; do not swallow Start: 04-17-2019 End: 11-27-2019 Fluticasone Furoate-Vilanter ol (Breo Ellipta) 100-25 mcg/dose blister with device Discontinued 1 INH INHALATION Q24H 60 November 01, 2019 2:35pm November 27, 2019 6:57am after inhalation, rinse mouth with water and spit out; do not swallow End: 04-12-2025 fluticasone-vilanterol (BREO ELLIPTA) 200-25 mcg/dose inhaler Inhale 1 Inhalation as instructed once daily. 04/12/2025 Discontinued (Course of therapy completed) Comment on above: Inhale 1 Inhalation as instructed once daily. montelukast 10 mg oral tablet (20 sources) Leukotriene Receptor Antagonist Start: 9 End: take 1 tablet by mouth once daily in the evening Montelukast 10 mg tablet Discontinued 10 mg PO EVERY EVENING 90 3 January 31, 2023 7:55am April 11, 2024 10:02am Comment on above: Take 1 tablet by danny th daily at bedtime. Problems Active Problems Problem Classification Problem Date Documented Date Episodic/Chronic Abdominal pain (20 sources) Right flank pain; Translations: [Unspecified abdominal pain] 12-20-2022 Episodic Administrative/socia l admission (4 sources) Persons encountering health services in other specified circumstances; Translations: [Other reasons for seeking consultation] 04-12-2023 Episodic Asthma (20 sources) Asthma; Translations: [Unspecified asthma, uncomplicated] 11-27-2019 Chronic Comment on above: INHALERS Complications of surgical procedures or medical care (7 sources) Postablative ovarian failure; Translations: [Asymptomatic postprocedural ovarian failure] Onset: 5 Chronic Headache; including migraine (13 sources) Migraine 04-16-2019 Chronic Other connective tissue disease (4 sources) Pain in right hand; Translations: [Pain in limb] 04-12-2023 Episodic Other connective tissue disease (4 sources) Cramp; Translations: [Cramp and spasm] 04-12-2025 Episodic Other connective tissue disease (1 source) Cramp and spasm; Translations: [Cramp and spasm] Onset: 5 Episodic Other endocrine disorders (5 sources) Hyperparathyroidism; Translations: [Hyperparathyroidism, unspecified] 10-13-2023 Chronic Comment on above: Patient is a 48-year -old female with biochemical evidence of primary hyperparathyroidism as well as surgical indications for parathyroidectomy given her extensive history of kidney stones and procedures to treat this issue starting last year. Further, her disease process appears to be localized to the right inferior (and possibly the left inferior position). I held a lengthy conversation with her regarding her diagnosis and clarified that although she has nodularity of her thyroid none of this is actionable at this time. I did recommend that we proceed with parathyroidectomy using intraoperative PTH and nerve monitoring. I discussed the process of obtaining PTH levels as a means of demonstrating a cure once parathyroid adenomas were excised. I shared that typically this is an outpatient procedure, but if multi gland disease is discovered then this could require subtotal parathyroidectomy and change postoperative disposition for calcium monitoring. I discussed procedure risks including specifically hypoparathyroidism and recurrent laryngeal nerve injury. Lastly I reviewed post procedure expectations for surveillance of PTH and calcium. Patient expressed thankfulness for these descriptions and an intent to pursue recommended surgery. Other endocrine disorders (2 sources) Hyperparathyroidism, unspecified; Translations: [Hyperparathyroidism, unspecified] 10-13-2023 Chronic Other lower respiratory disease (13 sources) Cough; Translations: [Cough] 01-21-2021 Episodic Other nutritional; endocrine; and metabolic disorders (13 sources) Body mass index 40+ - severely obese; Translations: [Body mass index (BMI) 50.0-59.9, adult] 06-13-2019 Chronic Other nutritional; endocrine; and metabolic disorders (3 sources) Body mass index (BMI) 50.0-59.9, adult; Translations: [Body Mass Index 50.0-59.9, adult] 03-02-2023 Chronic Other screening for suspected conditions (not mental disorders or infectious disease) (20 sources) Patient encounter status; Translations: [Encounter for screening mammogram for malignant neoplasm of breast] Onset: 5 Episodic Other upper respiratory disease (15 sources) Seasonal allergy; Translations: [Other seasonal allergic rhinitis] 04-16-2019 Chronic Other upper respiratory disease (13 sources) Allergic rhinitis; Translations: [Allergic rhinitis, unspecified] 04-17-2019 Chronic Other upper respiratory disease (7 sources) Other seasonal allergic rhinitis; Translations: [Allergic rhinitis, cause unspecified] 03-02-2023 Chronic Residual codes; unclassified (4 sources) Immunization not carried out because of patient refusal; Translations: [Vaccination not carried out because of patient refusal] 04-12-2023 Episodic Residual codes; unclassified (3 sources) History of parathyroidectomy; Translations: [Other specified postprocedural states] 03-12-2024 Episodic Comment on above: Patient is a 48-year -old female who makes her first postoperative visit following parathyroidectomy (x 3) on 02/23/2024. 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 Given the multi gland disease and removal of 3 parathyroid she did experience some postoperative hypoparathyroidism and describes some postoperative paresthesias, but today suggest that these are improving. She otherwise is well-healing on exam and her only other significant complaint is some voice fatigue. Importantly, her voice character/quality is normal at baseline but seems to be limited in terms of duration that she is able to use her voice. Not sure if this seems to be a positive indicator that this would return with additional time. I did review patient's intraoperative events and postoperative pathology with her which showed evidence of hyperplastic parathyroid glands for both superior positions. Postoperative PTH and calcium obtained.Update 03/12/2024: Patient is recovering well. I do not believe her reports of numbness and tingling are secondary to hypocalcemia given both the region and distribution as well as the unilaterality and admission for some underlying carpal tunnel syndrome. I am pleased to hear that her voice quality continues to improve. Lastly we obtained post clinic labs today that showed that her calcium and PTH activity are within normal limits. Therefore we will begin a thoughtful withdrawal of the calcium supplementation. Past or Other Problems Problem Classification Problem Date Documented Da te Episodic/Chronic Calculus of urinary tract (20 sources) Kidney stone; Translations: [Calculus of kidney] Onset: 05-19-2023 12-20-2022 Episodic Residual codes; unclassified (15 sources) History of total hysterectomy with bilateral salpingo-oophorecto my; Translations: [Acquired absence of both cervix and uterus] Onset: 07-07-2012 07-07-2012 Episodic Residual codes; unclassified (15 sources) History of estrogen therapy; Translations: [Personal history of estrogen therapy] Onset: 07-07-2012 07-07-2012 Episodic Residual codes; unclassified (1 source) Acquired absence of other organs; Translations: [Acquired absence of other organs] Onset: 10-11-2024 Episodic Skin and subcutaneous tissue infections (15 sources) Carbuncle; Translations: [Furuncle, unspecified] Onset: 10-17-2007 10-17-2007 Episodic Unclassified (2 sources) Patient encounter status 04-12-2025 Results Test Name Value Interpretation Reference Range Facility Absolute lymphocyte countOrd ered By: Elías Phipps on 04-12-2025 Lymphocytes Auto (Unsp spec) [#/Vol] 1.33 10*3/uL 0.83-4.51 [facility] Absolute neutrophil countOrd ered By: Elías Phipps on 04-12-2025 Neutrophils (Bld) [#/Vol] 3.1 10*3/uL 2.0-7.7 [facility] Anion gap in Serum or Plasma Ordered By: Elías Phipps on 04-12-2025 Anion gap [Moles/Vol] 13 mmol/L 5-15 [facility] Automated lymphocyte count a s percentage of total leukocytesOrdered By: Elías Phipps on 04-12-2025 Lymphocytes/100 WBC Auto (Unsp spec) 26.3 % 19-41 [facility] BUN/creatinine ratioOrdered By: Elías Phipps on 04-12-2025 Urea nitrogen/Creatinine [Mass ratio] 21.1 mg/mg High 10-20 [facility] Basophil percentageOrdered B y: Elías Phipps on 04-12-2025 Basophils/100 WBC (Bld) 1.4 % High 0-1 [facility] Bilirubin, totalOrdered By: Elías Phipps on 07-25-2025 Bilirubin [Mass/Vol] 0.28 mg/dL 0.00-1.30 [facility] CBC W/Diff, Automatedon 07-2 5-2024 Absolute Lymph 1.33 X10 3/uL Normal 0.83-4.51 [facility] Comment on above: Performed By: #### L 500.4100, L506.1001, L501.9520, L100.0100, L500.4050 #### [facility] [address] [place], [address] Absolute Neut 3.1 X10 3/uL Normal 2.0-7.7 [facility] Comment on above: Performed By: #### L 500.4100, L506.1001, L501.9520, L100.0100, L500.4050 #### [facility] [address] [place], [address] Basophils/100 WBC (Bld) 1.4 % High 0-[address] [facility] Comment on above: Performed By: #### L 500.4100, L506.1001, L501.9520, L100.0100, L500.4050 #### [facility] [address] [place], [address] Eosinophils/100 WBC (Bld) 2.0 % Normal 0-5 [facility] Comment on above: Performed By: #### L 500.4100, L506.1001, L501.9520, L100.0100, L500.4050 #### [facility] [address] [place], [address] Erythrocyte distribution width (RBC) [Ratio] 13.4 % Normal 11.6-14.6 [facility] Comment on above: Performed By: #### L 500.4100, L506.1001, L501.9520, L100.0100, L500.4050 #### [facility] [address] [place], [address] Hematocrit (Bld) [Volume fraction] 39.7 % Normal 37-47 [facility] Comment on above: Performed By: #### L 500.4100, L506.1001, L501.9520, L100.0100, L500.4050 #### [facility] [address] [place], [address] Hemoglobin (Bld) [Mass/Vol] 13.0 g/dL Normal 12.0-15.0 [facility] Comment on above: Performed By: #### L 500.4100, L506.1001, L501.9520, L100.0100, L500.4050 #### [facility] [address] [place], [address] IG% 0.400 Normal 0.0-0.9 [facility] Comment on above: Result Comment: IG% - Immature Granulocytes (promyelocytes, myelocytes and metamyelocytes) > 1% indicates that a LEFT SHIFT is Present. Performed By: #### L 500.4100, L506.1001, L501.9520, L100.0100, L500.4050 #### [facility] [address] [place], [address] Lymphocytes/100 WBC (Bld) 26.3 % Normal 19-41 [facility] Comment on above: Performed By: #### L 500.4100, L506.1001, L501.9520, L100.0100, L500.4050 #### [facility] [address] [place], [address] MCH (RBC) [Entitic mass] 29.7 pg Normal 27.0-32.0 [facility] Comment on above: Performed By: #### L 500.4100, L506.1001, L501.9520, L100.0100, L500.4050 #### [facility] [address] [place], [address] MCHC (RBC) [Mass/Vol] 32.7 g/dL Normal 32-36 [facility] Comment on above: Performed By: #### L 500.4100, L506.1001, L501.9520, L100.0100, L500.4050 #### [facility] [address] [place], [address] MCV (RBC) [Entitic vol] 90.6 fL Normal 81-99 [facility] Comment on above: Performed By: #### L 500.4100, L506.1001, L501.9520, L100.0100, L500.4050 #### [facility] [address] [place], [address] Monocytes/100 WBC (Bld) 8.5 % Normal 0-[address] [facility] Comment on above: Performed By: #### L 500.4100, L506.1001, L501.9520, L100.0100, L500.4050 #### [facility] [address] [place], [address] Neutrophils/100 WBC (Bld) 61.4 % Normal 47-70 [facility] Comment on above: Performed By: #### L 500.4100, L506.1001, L501.9520, L100.0100, L500.4050 #### [facility] [address] [place], [address] Nucleated RBC (Bld) [#/Vol] 0 10*3/uL Normal 0-5 [facility] Comment on above: Performed By: #### L 500.4100, L506.1001, L501.9520, L100.0100, L500.4050 #### [facility] [address] [place], [address] Platelet mean volume (Bld) [Entitic vol] 10.6 fL Normal 6.2-12.0 [facility] Comment on above: Performed By: #### L 500.4100, L506.1001, L501.9520, L100.0100, L500.4050 #### [facility] [address] [place], [address] Platelets (Bld) [#/Vol] 273 10*3/uL Normal 150-450 [facility] Comment on above: Performed By: #### L 500.4100, L506.1001, L501.9520, L100.0100, L500.4050 #### [facility] [address] [place], [address] RBC (Bld) [#/Vol] 4.38 10*6/uL Normal 4.2-5.4 [facility] Comment on above: Performed By: #### L 500.4100, L506.1001, L501.9520, L100.0100, L500.4050 #### [facility] [address] [place], [address] RDW SD 44.4 fl High 35.1-43.9 [facility] Comment on above: Performed By: #### L 500.4100, L506.1001, L501.9520, L100.0100, L500.4050 #### [facility] [address] [place], [address] WBC (Bld) [#/Vol] 5.1 10*3/uL Normal 4.4-11.0 [facility] Comment on above: Performed By: #### L 500.4100, L506.1001, L501.9520, L100.0100, L500.4050 #### [facility] [address] 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 Brenda is a 49 year old who presents for an annual gynecologic exam without complaints. Menses: no menses - postmenopausal. Contraception: hysterectomy HPV vaccine: No Last Pap: 2005 normal HPV: negative History of abnormal pap: No Last mammogram: 2024 normal Sexually active: Yes OB History Gravida3 Para3 Term2 Preterm1 AB0 Living2 SAB0 IAB0 Ectopic0 Multiple0 Live Births2 Central Service Technician History LMP: 10/23/2006, Hysterectomy Age at Menarche: Age at First : Age at Menopause: Central Service Technician History Comments: Sexual Activity: Yes; Male; total abdominal hysterectomy Contraception: Surgical PAST MEDICAL HISTORY Diagnosis Date Asthma (HCC) Endometriosis Parathyroid disease (HCC) 2022 PAST SURGICAL HISTORY Procedure Laterality Date KIDNEY STONE SURGERY HX Bilateral x 2 with stent placement PARATHYROID FINE NEEDLE ASPIRATION 02/23/2024 3 glands removed TONSILLECTOMY AND ADENOIDECTOMY TOTAL ABDOMINAL HYSTERECT W/WO RMVL TUBE OVARY 11/24/2006 Hysterectomy, NAZIA BSO FAMILY HISTORY Problem Relation Age of Onset No Known Problems Mother No Known Problems Father No Known Problems Sister Cancer Maternal Grandfather LUNG [place], [place], CVA Stroke Paternal Grandfather No Known Problems Daughter No Known Problems Son SOCIAL HISTORY Social History Tobacco Use Smoking status: Never Smokeless tobacco: Never Vaping Use Vaping status: Never Used Substance Use Topics Alcohol use: No Drug use: No REVIEW OF SYSTEMS Abdomen: No abdominal pain, nausea, vomiting, diarrhea, or constipation. No bloating, early satiety, indigestion, or increased flatulence. Bladder: No dysuria, gross hematuria, urinary frequency, urinary urgency, or incontinence. Breast: No breast lumps, nipple d/c, overlying skin changes, redness or skin retraction. Allergies and current medication updated:Yes SENSITIVE EXAM: The sensitive examination was discussed with the Patient or Patient's Authorized Hand Assembler For Puller Over. As applicable, any other physician, advance practice provider, medical student, or other health professional student that will be observing or involved in the sensitive examination for educational or training purposes was discussed with the Patient or Authorized Hand Assembler For Puller Over. The Patient or Authorized Hand Assembler For Puller Over has agreed to proceed with the sensitive examination. (Sensitive examination includes inspection and/or palpation of the breasts, pelvis, prostate and anorectal regions). EXAM: BP 124/78 Ht 5' 7 (1.70m) Wt 323 lb 6.4 oz (146.7kg) LMP 10/23/2006 BMI 50.64 kg/(m2). GENERAL: pleasant, female in no apparent distress HEENT: Normocephalic, atraumatic, mucus membranes moist, and no lesions DERMATOLOGY: Normal, without lesions, non-icteric, and non-hirsute BREAST: soft, non-tender, symmetric, no dominant mass, normal nipple-areolar complex, no lymphadenopathy, and no nipple discharge CHEST: Normal inspiratory effort ABDOMEN: soft, non-tender, and no masses PELVIC: external genitalia normal, normal Bartholin's glands, urethra, [place]'s glands, no vulvar lesions, physiologic discharge present, [...] and information provided. 3) STD screening: Declined STI check. 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 Normal [facility] Calculated very low density lipoprotein (VLDL) cholesterol measurementOrdered By: Elías Phipps on 04-12-2025 Calculated very low density lipoprotein (VLDL) cholesterol measurement 30 mg/dL 5-40 [facility] Carbon dioxide, total [Moles /volume] in Central venous bloodOrdered By: Elías Phipps on 04-12-2025 CO2 [Moles/Vol] 21.3 mmol/L 21.0-32.0 [facility] Chloride assayOrdered By: Stefania Phipps on 04-12-2025 Chloride [Moles/Vol] 103 mmol/L 98-108 [facility] Comprehensive Metabolic Prof ilon 04-12-2025 Albumin [Mass/Vol] 4.0 g/dL Normal 3.5-5.0 [facility] Comment on above: Performed By: #### L 500.4100, L506.1001, L501.9520, L100.0100, L500.4050 #### [facility] [address] [place], [address] Albumin/Globulin [Mass ratio] 1.3 {ratio} Normal 0.9-2.4 [facility] Comment on above: Performed By: #### L 500.4100, L506.1001, L501.9520, L100.0100, L500.4050 #### [facility] [address] [place], [address] ALK PHOS 59 U/L Normal 35-104 [facility] Comment on above: Performed By: #### L 500.4100, L506.1001, L501.9520, L100.0100, L500.4050 #### [facility] [address] [place], [address] ALT [Catalytic activity/Vol] 16 U/L Normal <=34 [facility] Comment on above: Performed By: #### L 500.4100, L506.1001, L501.9520, L100.0100, L500.4050 #### [facility] [address] [place], [address] AST [Catalytic activity/Vol] 15 U/L Normal <=31 [facility] Comment on above: Performed By: #### L 500.4100, L506.1001, L501.9520, L100.0100, L500.4050 #### [facility] [address] [place], [address] Bilirubin [Mass/Vol] 0.28 mg/dL Normal 0.00-1.30 [facility] Comment on above: Performed By: #### L 500.4100, L506.1001, L501.9520, L100.0100, L500.4050 #### [facility] [address] [place], [address] BUN/CRE 21.1 RATIO High 10-20 [facility] Comment on above: Performed By: #### L 500.4100, L506.1001, L501.9520, L100.0100, L500.4050 #### [facility] [address] [place], [address] Calcium [Mass/Vol] 9.3 mg/dL Normal 7.6-11.0 [facility] Comment on above: Performed By: #### L 500.4100, L506.1001, L501.9520, L100.0100, L500.4050 #### [facility] [address] [place], [address] Chloride [Moles/Vol] 103 mmol/L Normal 98-108 [facility] Comment on above: Performed By: #### L 500.4100, L506.1001, L501.9520, L100.0100, L500.4050 #### [facility] [address] [place], [address] CO2 [Moles/Vol] 21.3 mmol/L Normal 21.0-32.0 [facility] Comment on above: Performed By: #### L 500.4100, L506.1001, L501.9520, L100.0100, L500.4050 #### [facility] [address] [place], [address] Creatinine [Mass/Vol] 0.72 mg/dL Normal 0.70-1.20 [facility] Comment on above: Performed By: #### L 500.4100, L506.1001, L501.9520, L100.0100, L500.4050 #### [facility] [address] [place], [address] GAP 13 Normal 5-15 [facility] Comment on above: Performed By: #### L 500.4100, L506.1001, L501.9520, L100.0100, L500.4050 #### [facility] [address] [place], [address] GFR/1.73 sq M.predicted among non-blacks MDRD (S/P/Bld) [Vol rate/Area] 102 mL/min/{1.73_m2} Normal >60 [facility] Comment on above: Result Comment: mL/m in/1.73m2 CKD-EPI Creatinine Equation (2020) Performed By: #### L 500.4100, L506.1001, L501.9520, L100.0100, L500.4050 #### [facility] [address] [place], [address] Globulin (S) [Mass/Vol] 3.1 g/dL Normal 2.2-4.[address] [facility] Comment on above: Performed By: #### L 500.4100, L506.1001, L501.9520, L100.0100, L500.4050 #### [facility] [address] [place], [address] Glucose [Mass/Vol] 99 mg/dL Normal 70-99 [facility] Comment on above: Performed By: #### L 500.4100, L506.1001, L501.9520, L100.0100, L500.4050 #### [facility] [address] [place], [address] Potassium [Moles/Vol] 4.6 mmol/L Normal 3.3-5.1 [facility] Comment on above: Performed By: #### L 500.4100, L506.1001, L501.9520, L100.0100, L500.4050 #### [facility] [address] [place], [address] Sodium [Moles/Vol] 137 mmol/L Normal 133-145 [facility] Comment on above: Performed By: #### L 500.4100, L506.1001, L501.9520, L100.0100, L500.4050 #### [facility] [address] [place], [address] T PROT 7.1 g/dL Normal 5.9-8.4 [facility] Comment on above: Performed By: #### L 500.4100, L506.1001, L501.9520, L100.0100, L500.4050 #### [facility] [address] [place], [address] Urea nitrogen [Mass/Vol] 15 mg/dL Normal 4-19 [facility] Comment on above: Performed By: #### L 500.4100, L506.1001, L501.9520, L100.0100, L500.4050 #### [facility] [address] [place], [address] Eosinophil percentageOrdered By: Elías Phipps on 04-12-2025 Eosinophils/100 WBC (Bld) 2.0 % 0-5 [facility] Erythrocyte distribution wid th ratioOrdered By: Elías Phipps on 04-12-2025 Erythrocyte distribution width (RBC) [Ratio] 13.4 % 11.6-14.6 [facility] Erythrocyte distribution wid th standard deviationOrdered By: Elías Phipps on 04-12-2025 Erythrocyte distribution width (RBC) [Ratio] 44.4 fl High 35.1-43.9 [facility] Glomerular filtration rate ( GFR) estimation/1.73 sq m using serum, plasma, or whole bOrdered By: Elías Phipps on 04-12-2025 GFR/1.73 sq M.predicted among non-blacks MDRD (S/P/Bld) [Vol rate/Area] 102 mL/min/{1.73_m2} >60 [facility] Comment on above: mL/min/1.73m2 CKD-EP I Creatinine Equation (2020) Hematocrit Auto (Bld) [Volum e fraction]Ordered By: Elías Phipps on 04-12-2025 Hematocrit (Bld) [Volume fraction] 39.7 % 37-47 [facility] Hemoglobin measurementOrdere d By: Elías Phipps on 04-12-2025 Hemoglobin (Bld) [Mass/Vol] 13.0 g/dL 12.0-15.0 [facility] Immature granulocytes/100 WB C Auto (Bld)Ordered By: Elías Phipps on 04-12-2025 Immature granulocytes/100 WBC (Bld) 0.400 % 0.0-0.9 [facility] Comment on above: IG% - Immature Granu locytes (promyelocytes, myelocytes and metamyelocytes) > 1% indicates that a LEFT SHIFT is Present. Internal Medicine Office Vis jorge 04-12-2025 Internal Medicine Office Visit [facility] [address] [place] [address] [address] [place] [address] OFFICE VISIT Date of Service: 04/12/25 MR#: [id number] Acct: [id number] Name: BRENDA ALCAZAR Rep #: [id number] : 1975 Provider: RADHA Muñoz Age/Sex: 49/F [place] [facility] Status: Signed Intake Vital Signs 04/11/24 07:46 04/10/25 08:30 04/12/25 07:37 Height 5 ft 7 in 5 ft 7 in 5 ft 7 in Weight: 322 lb 324 lb BMI 50.4 50.7 BP 148/91 H 144/90 H Blood Pressure Location Lt radial Lt brachial Position Sitting Sitting Respiration 16 18 Pulse 77 96 Pulse Source Monitor Monitor Temp 97.4 F L 96.8 F L Temp Source Temporal Pulse Oximetry (%) 98 97 Oxygen Delivery Method room air room air Oxygen Flow Rate (L/min) 98 Intake Visit Reasons: ACUTE- PERSISTENT LEG CRAMPS Chief Complaint: ACUTE- PERSISTENT LEG CRAMPS Is patient in pain?: No Allergies codeine Allergy (Intermediate, Verified 04/12/25 07:38) Rash Penicillins (PCN) Adverse Reaction (Verified 04/12/25 07:38) Yeast infection Medications ???Medication ???Instructions ???Recorded ???Confirmed ???Type estradiol 1 mg tablet 1 mg PO DAILY 04/16/19 04/12/25 Hi story cranberry fruit 400 mg capsule 500 mg PO DAILY 01/13/23 04/12/25 History fexofenadine 180 mg tablet 180 mg PO DAILY 01/13/23 04/12/25 History (Isaura Allergy) multivitamin 1 cap PO DAILY 01/13/23 04/12/25 H istory allergy shot subcut 04/12/23 04/12/25 History albuterol sulfate 90 mcg/actuation 2 puff inhalation Q4H PRN 04/12/25 Rx aerosol inhaler shortness of breath or wheezing #18 grams triamcinolone acetonide 55 55 mcg intranasal DAILY 10/13/23 0 04/12/25 History mcg/actuation nasal spray,aerosol montelukast 10 mg tablet 10 mg PO QPM #90 tabs 11/23/24 Rx fluticasone 500 mcg-salmeterol 50 1 inh inhalation BID #3 ea 04/12/25 Rx mcg/dose blistr powdr for inhalation (Advair Diskus) Have you fallen in the past year?: No Nurse's Note: pt reports that ever since having her parathyroidectomy last year she has been having whole leg cramps that extend from her calf into her thighs. pt states that it is throughout the day not just at night. 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 Patient has been having leg cramps since her parahthyroidectomy. These are not every night but can go in spurts where she will have them for several nights in a row. She states that 95% of the time they occur at night. She states that she has been taking multi-vitamins. She states that the only thing that she has found that helps is drinking body armour drink. This is the only thing that has helped She is a good water drinker throughout the day. ROS Const Constitutional: No body ache, chills, excessive sweating, fatigue, fever(s), frequent falls, headache(s), snoring, weight change, sleep problems, abnormal sleep pattern or change in appetite Eyes Eyes: No blurry vision, change in vision, eye pain or Light sensitivity ENT ENT: No abnormal hearing, ear or mastoid pain, tinnitus, nasal congestion, headache(s), neck pain or sore throat Resp Respiratory: No cough, shortness of breath, snoring or wheezing Cardio Cardiology: No chest pain at rest, chest pain with exertion, excessive sweating, shortness of breath, dyspnea on exertion, lightheadedness, orthopnea or palpitations Gastro GI: No abdominal pain, change in bowel habits, constipation, cramping, diarrhea, nausea/dyspepsia or vomiting Genitourinary-Female: No burning urination (more content not included)... Normal [facility] LDL calc ser/plasOrdered By: Elías Phipps on 04-12-2025 Cholesterol in LDL [Mass/Vol] 91 mg/dL [facility] Comment on above: Yucjqrlrqk=369-809 m g/dL & Higher Fapn=546 mg/dL or greater Laboratory - Chemistry and C hemistry - challengeOrdered By: Elías Phipps on 04-12-2025 AST [Catalytic activity/Vol] 15 U/L <32 [facility] Lipid Profileon 04-12-2025 CHOL:HDL 2.37 Normal [facility] Comment on above: Performed By: #### L 500.4100, L506.1001, L501.9520, L100.0100, L500.4050 #### [facility] [address] [place], [place], [id number] Cholesterol [Mass/Vol] 210 mg/dL High <=[address] [facility] Comment on above: Result Comment: Chol esterol level, Desirable <200 mg/dL Borderline high cholesterol 200-239 mg/dL High cholesterol >=240 mg/dL Recommendations of the NCEP Adult Treatment Panel for the following risk-cutoff thresholds for the [place] population. Performed By: #### L 500.4100, L506.1001, L501.9520, L100.0100, L500.4050 #### [facility] [address] [place], [address] Cholesterol in HDL [Mass/Vol] 89 mg/dL Normal [facility] Comment on above: Result Comment: Yue onal Cholesterol Education Program (NCEP) guidelines: <40 mg/dL: Low HDL-cholesterol (major risk factor for CHD) >= 60 mg/dL: High HDL-cholesterol (negative risk factor for CHD) HDL-cholesterol is affected by a number of factors, e.g. smoking, exercise, hormones, sex and age. Performed By: #### L 500.4100, L506.1001, L501.9520, L100.0100, L500.4050 #### [facility] [address] [place], [address] Cholesterol in LDL [Mass/Vol] 91 mg/dL Normal [facility] Comment on above: Result Comment: Bord zpgphw=141-618 mg/dL Higher Dzxr=576 mg/dL or greater Performed By: #### L 500.4100, L506.1001, L501.9520, L100.0100, L500.4050 #### [facility] [address] [place], [address] Cholesterol in VLDL [Mass/Vol] 30 mg/dL Normal 5-40 [facility] Comment on above: Performed By: #### L 500.4100, L506.1001, L501.9520, L100.0100, L500.4050 #### [facility] [address] [place], [address] Triglyceride [Mass/Vol] 150 mg/dL Normal [facility] Comment on above: Result Comment: The drugs N-Acetylcysteine and Metamizole may falsely depress this assay. Normal range: <150 mg/dL Borderline High: 150-199 mg/dL High: 200-499 mg/dL Very High: >500 mg/dL Performed By: #### L 500.4100, L506.1001, L501.9520, L100.0100, L500.4050 #### [facility] [address] [place], [address] MCV (mean corpuscular volume ) determinationOrdered By: Elías Phipps on 04-12-2025 MCV (RBC) [Entitic vol] 90.6 fL 81-[address] [facility] Mean corpuscular hemoglobin (MCH) determinationOrdered By: Elías Phipps on 04-12-2025 MCH (RBC) [Entitic mass] 29.7 pg 27.0-32.0 [facility] Mean corpuscular hemoglobin concentration (MCHC) determinationOrdered By: Elías Phipps on 04-12-2025 MCHC (RBC) [Mass/Vol] 32.7 g/dL 32-36 [facility] Mean platelet volume determi nationOrdered By: Elías Phipps on 04-12-2025 Platelet mean volume (Bld) [Entitic vol] 10.6 fL 6.2-12.0 [facility] Monocyte percentageOrdered B y: Elías Phipps on 04-12-2025 Monocytes/100 WBC (Bld) 8.5 % 0-[address] [facility] Neutrophil percentageOrdered By: Elías Phipps on 04-12-2025 Neutrophils/100 WBC (Bld) 61.4 % 47-70 [facility] Nucleated red blood cell per centageOrdered By: Elías Phipps on 04-12-2025 Nucleated RBC/100 WBC (Bld) [Ratio] 0 % 0-5 [facility] Platelet countOrdered By: Stefania Phipps on 04-12-2025 Platelets (Bld) [#/Vol] 273 10*3/uL 150-450 [facility] Potassium measurement (mass/ volume)Ordered By: Elías Phipps on 04-12-2025 Potassium (Unsp spec) [Mass/Vol] 4.6 mmol/L 3.3-5.1 [facility] RBC Auto (Bld) [#/Vol]Ordere d By: Elías Phipps on 04-12-2025 RBC (Bld) [#/Vol] 4.38 10*6/uL 4.2-5.4 [facility] Screening total cholesterol/ high density lipoprotein (HDL) cholesterol ratioOrdered By: Elías Phipps on 04-12-2025 Cholesterol.total/Choles terol in HDL [Mass ratio] 2.37 {ratio} [facility] Serum creatinine measurement (mass/volume)Ordered By: Elías Phipps on 04-12-2025 Creatinine [Mass/Vol] 0.72 mg/dL 0.70-1.20 [facility] Serum globulin measurementOr dered By: Elías Phipps on 04-12-2025 Globulin (S) [Mass/Vol] 3.1 g/dL 2.2-4.2 [facility] Serum glucose measurement (m ass/volume)Ordered By: Elías Phipps on 04-12-2025 Glucose [Mass/Vol] 99 mg/dL 70-99 [facility] Serum or plasma alanine bazzi otransferase (ALT) measurementOrdered By: Elías Phipps on 04-12-2025 ALT [Catalytic activity/Vol] 16 U/L <35 [facility] Serum or plasma albumin sudha urement (mass/volume)Ordered By: Elías Phipps on 04-12-2025 Albumin [Mass/Vol] 4.0 g/dL 3.5-5.0 [facility] Serum or plasma albumin/glob ulin mass ratioOrdered By: Elías Phipps on 04-12-2025 Albumin/Globulin [Mass ratio] 1.3 {ratio} 0.9-2.4 [facility] Serum or plasma alkaline hernan sphatase measurementOrdered By: Elías Phipps on 04-12-2025 ALP [Catalytic activity/Vol] 59 U/L 35-104 [facility] Serum or plasma calcium sudha urement (mass/volume)Ordered By: Elías Phipps on 04-12-2025 Calcium [Mass/Vol] 9.3 mg/dL 7.6-11.0 [facility] Serum or plasma cholesterol in HDL measurement (mass/volume)Ordered By: Elías Phipps on 04-12-2025 Cholesterol in HDL [Mass/Vol] 89 mg/dL >40 [facility] Comment on above: National Cholesterol Education Program (NCEP) guidelines:<40 mg/dL: Low HDL-cholesterol (major risk factor for CHD)>= 60 mg/dL: High HDL-cholesterol (negative risk factor for CHD)HDL-cholesterol is affected by a number of factors, e.g. smoking, exercise, hormones, sex and age. Serum or plasma cholesterol measurement (mass/volume)Ordered By: Elías Phipps on 04-12-2025 Cholesterol [Mass/Vol] 210 mg/dL High <[address] [facility] Comment on above: Cholesterol level, D esirable <200 mg/dLBorderline high cholesterol 200-239 mg/dLHigh cholesterol >=240 mg/dLRecommendations of the NCEP Adult Treatment Panel for the following risk-cutoff thresholds for the [place] population. Serum or plasma urea nitroge n measurement (mass/volume)Ordered By: Elías Phipps on 04-12-2025 Urea nitrogen [Mass/Vol] 15 mg/dL 4-19 [facility] Sodium levelOrdered By: Travon Phipps on 04-12-2025 Sodium [Moles/Vol] 137 mmol/L 133-145 [facility] TSH DL <= 0.005 mIU/L QnOrde red By: Elías Phipps on 04-12-2025 TSH Qn 2.980 uIU/mL 0.300-4.200 [facility] Thyroid Stim Hormone (TSH)on 04-12-2025 TSH 2.980 uIU/mL Normal 0.300-4.200 [facility] Comment on above: Performed By: #### L 509.1000, L501.2200 #### [facility] [place], [address] Total proteinOrdered By: Raoul Phipps on 04-12-2025 Protein [Mass/Vol] 7.1 g/dL 5.9-8.4 [facility] Triglycerides measurementOrd ered By: Elías Phipps on 04-12-2025 Triglyceride [Mass/Vol] 150 mg/dL <199 [facility] Comment on above: The drugs N-Acetylcy steine and Metamizole may falsely depress this assay. Normal range: <150 mg/dLBorderline High: 150-199 mg/dLHigh: 200-499 mg/dLVery High: >500 mg/dL Vitamin D,25 Hydroxyon 04-12 Vitamin D 25-OH 30.2 ng/mL Normal 30-100 [facility] Comment on above: Result Comment: Maryann min D Status Deficiency: <20 ng/mL (50nmol/L) Insufficiency: 20-30 ng/mL (50-75 nmol/L) Sufficiency: 30-100 ng/mL (75-250 nmol/L) Toxicity: >100 ng/mL (>250 nmol/L) Performed By: #### L 509.1000, L501.2200 #### [facility] [address] [place], [address] White blood cell (WBC) count Ordered By: Elías Phipps on 04-12-2025 WBC (Bld) [#/Vol] 5.1 10*3/uL 4.4-11.0 [facility] BENTLEY SCREENING W TOMOon 04-10 BENTLEY SCREENING W STARR * * *Final Report* * * DATE OF EXAM: Apr 10 2025 9:35AM WRW [id number] - BENTLEY SCREENING W STARR / PROCEDURE REASON: multiple diagnoses * * * * Physician Interpretation * * * * RESULT: [address] [address] [place] [address] #[id number] - BENTLEY SCREENING W STARR HISTORY: 49 year-old patient presents for screening. Patient is asymptomatic in both breasts. Patient states no personal history of breast cancer. COMPARISON STUDIES: The present examination has been compared to prior imaging studies dated 11/24/2018 (mammogram), 11/27/2020 (mammogram), 01/28/2022 (mammogram), 02/18/2023 (mammogram) and 03/15/2024 (mammogram). MAMMOGRAM TECHNIQUE: The study was acquired using full field digital technology and interpreted from soft copy. Digital Breast Tomosynthesis (DBT) images were obtained and used to assist in the interpretation of this examination. MAMMOGRAM FINDINGS: There are scattered areas of fibroglandular density. No suspicious masses, calcifications or other abnormalities are seen in either breast. There are no significant interval changes. IMPRESSION: There is no mammographic evidence of malignancy in either breast. Routine screening mammogram is recommended. Annual mammogram will be due in 1 year. BI-RADS Category 1: Negative RISK: Based on the Tyrer-Cuzick (TC) risk assessment model, this patient has a 9.9% lifetime risk of developing breast cancer, meaning they are at average risk for developing breast cancer. However, this is only an estimate based on available history provided on the patient's questionnaire. We encourage all patients to talk with their providers about these results, further recommendations for managing breast health, and appropriate supplemental screening options if the patient has dense breast tissue. Interpreting Radiologist: Brenda Chamberlain M.D. Electronically signed on: 04/11/2025 Impregnation Operator: DELTA Transcribe Date/Time: Apr 10 2025 9:27A Dictated by: BRENDA CHAMBERLAIN MD This examination was interpreted and the report reviewed and electronically signed by: BRENDA CHAMBERLAIN MD on Apr 11 2025 8:16AM EST [id number] Normal [facility] Pulmonary Visit Reporton Pulmonary Visit Report [facility] of [address] [place] [address] OFFICE VISIT Date of Service: 04/10/25 MR#: [id number] Acct: [id number] Name: BRENDA ALCAZAR Rep #: [id number] : 1975 Provider: KARIS Bundy Age/Sex: 49/F [place] [facility] Status: Signed Assessment and Plan Assessment and Plan (1) Asthma: Status: Chronic Qualifiers: Asthma severity: moderate Asthma persistence: persistent Asthma complication type: uncomplicated Qualified Code(s): J45.40 - Moderate persistent asthma, uncomplicated (2) Seasonal allergies: Status: Chronic Medications: Changed From Advair Diskus 500-50 mcg/dose (fluticasone propion-salmeterol) 1 inh inhalation BID 60 ea 11RF NS To fluticasone propion-salmeterol 500-50 mcg/dose (Advair Diskus) 1 inh inhalation BID 3 ea 3RF Plan Stable, no signs of exacerbation. No change in maintenance medications, refills provided as the ICS/LABA inhaler, antihistamine and nasal steroid are controlling symptoms and prevented exacerb ations. No additional testing at this time. Contact the office with any signs of new or worsening symptoms. Follow-up in 1 year. Plan Details Additional Comments: This note was generated with Honk dictation software. It may contain incorrect words, spelling, and punctuation that were not noted in checking the note before signing. Follow Up: 1 Year HPI HPI Comments Details: This patient presents to the office today to follow-up on her asthma and seasonal allergies. She is ambulatory and on room air. She has not been seen in the ED or care for any respiratory illnesses since her last office visit. She has not required any antibiotics or prednisone for any breathing problems. She is compliant with the use of Advair 1 puff twice daily. She does report rinsing her mouth out after each use. She denies any medication side effect such as sore throat or thrush. She is also compliant with use of Nasocort Singulair daily. She utilizes her albuterol rescue inhaler less than once per week. She reports shortness of breath on exertion. She denies any cough, sputum production or hemoptysis. She is not had any wheezing, chest tightness, chest pain or palpitations. She denies any fever, chills or body aches. Intake Vital Signs 04/11/24 07:46 04/10/25 08:30 Height 5 ft 7 in 5 ft 7 in Weight: 322 lb BMI 50.4 BP 148/91 H Blood Pressure Location Lt radial Position Sitting Respiration 16 Pulse 77 Pulse Source Monitor Temp 97.4 F L Temperature Source Temporal Artery Pulse Oximetry (%) 98 Oxygen Delivery Method room air Oxygen Flow Rate (L/min) 98 Intake Visit Reasons: 1 Y FU Chief Complaint: parathyroidectomy post op DME Vendor: N/a Accompanied by: Daughter Is patient in pain?: No Allergies codeine Allergy (Intermediate, Verified 04/10/25 10:13) Rash Penicillins (PCN) Adverse Reaction (Verified 04/10/25 10:13) Yeast infection Medications ???Medication ???Instructions ???Recorded ???Confirmed ???Type estradiol 1 mg tablet 1 mg PO DAILY 04/16/19 04/10/25 Hi story cranberry fruit 400 mg capsule 500 mg PO DAILY 01/13/23 04/10/25 History fexofenadine 180 mg tablet 180 mg PO DAILY 01/13/23 04/10/25 History (Isaura Allergy) multivitamin 1 cap PO DAILY 01/13/23 04/10/25 H istory allergy shot subcut 04/12/23 04/10/25 History albuterol sulfate 90 mcg/actuation 2 puff inhalation Q4H PRN 04/10/25 Rx aerosol inhaler shortness of breath or wheezing #18 grams triamcinolone acetonide 55 55 mcg intranasal DAILY 10/13/23 0 04/10/25 History mcg/actuation nasal spray,aerosol montelukast 10 mg tablet 10 mg PO QPM #90 tabs 11/23/24 Rx fluticasone 500 mcg-salmeterol 50 1 inh inhalation BID #3 ea 04/10/25 Rx mcg/dose blistr powdr for inhalation (Advair Diskus) Have you fallen in the past year?: No PFSH Medical History PONV (postoperative nausea and vomiting) Renal stones Hyperparathyroidism History of kidney stones Back problem Wears glasses Wears contact lenses Non-smoker Leg cramps Asthma Allergic rhinitis migraine Seasonal allergies Surgical History S/P parathyroidectomy H/O sinus surgery History of tonsillectomy and adenoidectomy Hx of hysterectomy History of surgery History of cystoscopy Family History Father Cancer kidney Mother Asthma Grandfather Lung cancer Sister Graves disease Social History household members: spouse and children current occupational status: employed 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 Normal [facility] Calcium,Totalon 09-17-2024 CA,Total 8.7 mg/dL Normal 8.5-10.1 [facility] Comment on above: Performed By: #### L 509.1000, L501.0 #### [facility] [address] [place], [address] PTHINon 09-17-2024 PTH 46.2 pg/mL Normal 18.4-80.1 [facility] Comment on above: Performed By: #### L 509.1000, L501.2200 #### [facility] [address] [place], [address] Abdomen Single Viewon 2023 Abdomen Single View [facility] [address] [address] Abdomen Single View MR#: [id number] Acct: [id number] Name: BRENDA ALCAZAR Rep #: [id number] : 1975 F 48 From: Jason Carrillo MD PCP: Dr. Zeinab Walton MD Status: REG CLI Study: Abdomen Single View Date of Exam: 05/04/24 Exam# [id number] Ordering Dr: Dali Biswas MD [id number] STUDY: X-RAY - ABDOMEN/PELVIS REASON FOR EXAM: Female, 48 years old. Renal stones. TECHNIQUE: Single AP view of the abdomen / pelvis on 2 images. COMPARISON: February 18, 2023 FINDINGS: Normal visualized lung bases. Normal bowel gas pattern with air seen to the rectum. Stable small multiple calcifications projected over the lower pole left kidney. The visualized liver, spleen and kidneys are grossly normal in size and morphology. Normal soft tissue structures. Normal visualized osseous structures. RAD/Abdomen Single View IMPRESSION: Stable left nephrocalcinosis. No acute finding. Electronically Signed: Jason Carrillo MD at 14:43 EDT , CC: Dr. Zeinab Walton MD; Dr. Dali Biswas MD Impregnation Operator: Signed Normal [facility] Calcium,Totalon 04-26-2024 CA,Total 8.7 mg/dL Normal 8.5-10.1 [facility] Comment on above: Performed By: #### L 509.1000, L501.2200 #### [facility] [address] [place], [address] PTHINon 04-26-2024 PTH 44.0 pg/mL Normal 18.4-80.1 [facility] Comment on above: Performed By: #### L 509.1000, L501.2200 #### [facility] [address] [place], [address] No Panel InformationOrdered By: Haile Garcias on 11-05-2023 Ionized Calcium 5.53 mg/dL 4.36-5.20 [facility] Parathyroid Hormone (Intact) 98.6 pg/mL 18.4-80.1 [facility] Vitamin D 25-Hydroxy 30.9 ng/mL [facility] Comment on above: Vitamin D 25(OH) Sta tus Range Deficiency <20 ng/mL (50nmol/L) Insufficiency 20 - 30 ng/mL (50 - 75 nmol/L) Sufficiency 30 - 100 ng/mL (75 - 250 nmol/L) Toxicity >100 ng/mL (>250 nmol/L) Serum or plasma calcium sudha urement (mass/volume)Ordered By: Haile Garcias on 11-05-2023 Calcium [Mass/Vol] 11.5 mg/dL 8.5-10.1 [facility] No Panel InformationOrdered By: Zeinab Walton on 06-09-2023 Vitamin D 25-Hydroxy 29.9 ng/mL [facility] Comment on above: Vitamin D 25(OH) Sta tus Range Deficiency <20 ng/mL (50nmol/L) Insufficiency 20 - 30 ng/mL (50 - 75 nmol/L) Sufficiency 30 - 100 ng/mL (75 - 250 nmol/L) Toxicity >100 ng/mL (>250 nmol/L) Basophil percentageOrdered B y: Zeinab Walton on 05-30-2023 Bilirubin [Mass/Vol] 0.40 mg/dL 0.20-1.00 [facility] Comment on above: For patients on eltr ombopag therapy, use of Dimension Sapello TBIL is not recommended. Chloride [Moles/Vol] 107 mmol/L 98-107 [facility] Cholesterol [Mass/Vol] 209 mg/dL <[address] [facility] Comment on above: <200 mg/dL Desirable 200-240 mg/dL Borderline >240 mg/dL High Risk Glucose [Mass/Vol] 97 mg/dL 74-106 [facility] Potassium [Moles/Vol] 4.1 mmol/L 3.5-5.1 [facility] Protein [Mass/Vol] 8.1 g/dL 6.4-8.2 [facility] Sodium [Moles/Vol] 137 mmol/L 136-145 [facility] Triglyceride [Mass/Vol] 184 mg/dL <199 [facility] Comment on above: The drugs N-Acetylcy steine and Metamizole may falsely depress this assay.Serum Triglycerides Reference Interval Normal <150 mg/dL Borderline high 150 - 199 mg/dL High 200 - 499 mg/dL Very High > or = 500 mg/dL Laboratory - Chemistry and C hemistry - challengeOrdered By: Zeinab Walton on 05-30-2023 ALP [Catalytic activity/Vol] 71 U/L 45-117 [facility] ALT [Catalytic activity/Vol] 19 U/L 13-56 [facility] CO2 [Moles/Vol] 23.0 mmol/L 21.0-32.0 [facility] Globulin (S) [Mass/Vol] 4.7 g/dL 2.2-4.[address] [facility] Urea nitrogen/Creatinine [Mass ratio] 18.9 mg/mg 10-20 [facility] No Panel InformationOrdered By: Zeinab Walton on 05-30-2023 Estimated GFR (MDRD) Amer 108 mL/min >60 [facility] Comment on above: GFR Calc Estimated GFR (MDRD) Non-Af Amer 89 mL/min >60 [facility] Comment on above: Non- GFR Calc Parathyroid Hormone (Intact) 114.8 pg/mL 18.4-80.1 [facility] Thyroid Stimulating Hormone (TSH) 2.70 uIU/mL 0.358-3.74 [facility] Serum or plasma albumin sudha urement (mass/volume)Ordered By: Zeinab Walton on 05-30-2023 Albumin [Mass/Vol] 3.4 g/dL 3.2-5.0 [facility] Serum or plasma albumin/glob ulin mass ratioOrdered By: Zeinab Walton on 05-30-2023 Albumin/Globulin [Mass ratio] 0.7 {ratio} 0.9-2.4 [facility] Serum or plasma calcium sudha urement (mass/volume)Ordered By: Zeinab Walton on 05-30-2023 Calcium [Mass/Vol] 10.1 mg/dL 8.5-10.1 [facility] Serum or plasma cholesterol in HDL measurement (mass/volume)Ordered By: Zeinab Walton on 05-30-2023 Cholesterol in HDL [Mass/Vol] 64 mg/dL >40 [facility] Comment on above: The drugs N-Acetylcy steine and Metamizole may falsely depress this assay. Reference Range HDL <40 mg/dL Low HDL Cholesterol HDL >or= 60 mg/dL High HDL Cholesterol Serum or plasma cholesterol in VLDL measurement (mass/volume)Ordered By: Zeinab Walton on 05-30-2023 Cholesterol in VLDL [Mass/Vol] 37 mg/dL 5-40 [facility] Serum or plasma creatinine m easurement (mass/volume)Ordered By: Zeinab Walton on 05-30-2023 Creatinine [Mass/Vol] 0.74 mg/dL 0.55-1.02 [facility] Comment on above: The validity of the calculated GFR & GFRAA in patients over 70 years has not been determined. Clinical correlation is essential. Serum or plasma low density lipoprotein (LDL) cholesterol measurement (mass/volume)Ordered By: Zeinab Walton on 05-30-2023 Cholesterol in LDL [Mass/Vol] 108 mg/dL 0-130 [facility] Serum or plasma urea nitroge n measurement (mass/volume)Ordered By: Zeinab Walton on 05-30-2023 Urea nitrogen [Mass/Vol] 14 mg/dL 7-18 [facility] Thin prep Papanicolaou smear with manual screeningOrdered By: Zeinab Walton on 05-30-2023 Thin prep Papanicolaou smear with manual screening 12 U/L 15-37 [facility] Thin prep Papanicolaou smear with manual screening 7 5-15 [facility] DXA-AXIAL SKELETONon 023 [facility] Serum or plasma calcium sudha urement (mass/volume)Ordered By: Dali Biswas on 05-11-2023 Calcium [Mass/Vol] 11.2 mg/dL 8.5-10.1 [facility] Calcium oxalate dihydrate cr ystals detection in stone by infrared spectroscopyOrdered By: Dali Biswas on 04-07-2023 Calcium oxalate dihydrate crystals Infrared spectroscopy Ql (Stone) 10 % [facility] Color of specimen determinat ionOrdered By: Dali Biswas on 04-07-2023 Color (Unsp spec) Brown [facility] Laboratory - Miscellaneous t estsOrdered By: Dali Biswas on 04-07-2023 Service comment (Unsp spec) [Interp] See comment [facility] Comment on above: Calculus received we t. Wet calculi must be dried beforeanalysis, which delays reporting of results. Leaving calculiwet (such as water, saline, blood, urine) may lead tochanges in composition. Physician questions regarding Calculi Analysis contactFredonia [facility] HospitalCo at: [phone]. Calculi report will follow via computer, mail or courierdelivery. Measurement of weight of sto neOrdered By: Dali Biswas on 04-07-2023 Weight (Stone) 86 mg [facility] No Panel InformationOrdered By: Dali Biswas on 04-07-2023 Stone Analysis (T) See comment [facility] Comment on above: Percentage (Represen ts the % composition) Stone Calcium Oxalate Monohydrate 90 % [facility] Origin of StoneOrdered By: Pratik Biswas on 04-07-2023 Origin Nom (Stone) Not Provided [facility] Size of stoneOrdered By: Toya Biswas on 04-07-2023 Size (Stone) [Entitic vol] 5x3 mm [facility] Comment on above: Multiple pieces rece ived. Dimensions of the largest piecereported. Thin prep Papanicolaou smear with manual screeningOrdered By: Dali Biswas on 04-07-2023 Thin prep Papanicolaou smear with manual screening See comment [facility] Comment on above: Photograph will foll ow under a separate cover BENTLEY SCREENINGon 02-18-2023 [facility] Calcium oxalate dihydrate cr ystals detection in stone by infrared spectroscopyOrdered By: Dr. Biswas on 12-21-2022 Calcium oxalate dihydrate crystals Infrared spectroscopy Ql (Stone) 40 % [facility] Color of specimen determinat ionOrdered By: Dr. Biswas on 12-21-2022 Color (Unsp spec) GOTTLIEB [facility] Laboratory - Miscellaneous t estsOrdered By: Dr. Biswas on 12-21-2022 Service comment (Unsp spec) [Interp] See comment [facility] Comment on above: Physician questions regarding Calculi Analysis contactLabCorp at: [phone]. Calculi report will follow via computer, mail or courierdelivery. Measurement of weight of sto neOrdered By: Dr. Biswas on 12-21-2022 Weight (Stone) 37 mg [facility] No Panel InformationOrdered By: Dr. Biswas on 12-21-2022 Stone Analysis (T) See comment [facility] Comment on above: Percentage (Represen ts the % composition) Stone Calcium Oxalate Monohydrate 20 % [facility] Stone Calcium Phosphate 40 % [facility] Comment on above: Calcium phosphate (h ydroxyl form) includes hydroxyapatite,amorphous calcium phosphate, and whitlockite. Hydroxyapatiteis the most common of the calcium phosphate salts found inhuman kidney stones. Origin of StoneOrdered By: Soledad Biswas on 12-21-2022 Origin Nom (Stone) RIGHT URETER [facility] / [facility] Size of stoneOrdered By: Dr. Biswas on 12-21-2022 Size (Stone) [Entitic vol] 3X4 mm [facility] Comment on above: Multiple pieces rece ived. Dimensions of the largest piece reported. Thin prep Papanicolaou smear with manual screeningOrdered By: Dr. Biswas on 12-21-2022 Thin prep Papanicolaou smear with manual screening See comment [facility] Comment on above: Photograph will foll ow under a separate cover. Absolute lymphocyte countOrd ered By: Dr. Douglas on 12-20-2022 Lymphocytes Auto (Unsp spec) [#/Vol] 1.35 10*3/uL 0.83-4.51 [facility] Basophil percentageOrdered B y: Dr. Douglas on 12-20-2022 Basophil percentage 0 SEEN /hpf 0-5 [facility] Basophils/100 WBC (Bld) 1.4 % 0-1 [facility] Bilirubin [Mass/Vol] 0.30 mg/dL 0.20-1.00 [facility] Comment on above: For patients on eltr ombopag therapy, use of Dimension S[place] TBIL is not recommended. Chloride [Moles/Vol] 106 mmol/L 98-107 [facility] Eosinophils/100 WBC (Bld) 1.7 % 0-5 [facility] Glucose [Mass/Vol] 119 mg/dL 74-106 [facility] Comment on above: Fasting Glucose resu lt from 100 to 125 mg/dL suggests IMPAIRED HOMEOSTASIS per A.D.A. criteria. Neutrophils (Bld) [#/Vol] 3.8 10*3/uL 2.0-7.7 [facility] Neutrophils/100 WBC (Bld) 65.2 % 47-70 [facility] Potassium [Moles/Vol] 4.2 mmol/L 3.5-5.1 [facility] Protein [Mass/Vol] 7.7 g/dL 6.4-8.2 [facility] Sodium [Moles/Vol] 134 mmol/L 136-145 [facility] WBC (Bld) [#/Vol] 5.9 10*3/uL 4.4-11.0 [facility] Bilirubin Test strip Ql (U)O rdered By: Dr. Douglas on 12-20-2022 Bilirubin Ql (U) Negative Negative [facility] Blood erythrocytes count (nu mber/volume)Ordered By: Dr. Douglas on 12-20-2022 RBC (Bld) [#/Vol] 4.66 10*6/uL 4.2-5.4 [facility] Blood hemoglobin measurement (mass/volume)Ordered By: Dr. Douglas on 12-20-2022 Hemoglobin (Bld) [Mass/Vol] 13.9 g/dL 12.0-15.0 [facility] Blood lymphocytes/100 leukoc ytesOrdered By: Dr. Douglas on 12-20-2022 Lymphocytes/100 WBC (Bld) 22.9 % 19-41 [facility] Blood monocytes/100 leukocyt esOrdered By: Dr. Douglas on 12-20-2022 Monocytes/100 WBC (Bld) 8.3 % 0-10 [facility] Blood platelet mean volumeOr dered By: Dr. Douglas on 12-20-2022 Platelet mean volume (Bld) [Entitic vol] 10.3 fL 6.2-12.0 [facility] Determination of erythrocyte mean corpuscular volume (MCV)Ordered By: Dr. Douglas on 12-20-2022 MCV (RBC) [Entitic vol] 91.6 fL 81-99 [facility] Hematocrit Auto (Bld) [Volum e fraction]Ordered By: Dr. Douglas on 12-20-2022 Hematocrit (Bld) [Volume fraction] 42.7 % 37-47 [facility] Ketones Test strip Ql (U)Ord ered By: Dr. Douglas on 12-20-2022 Ketones Ql (U) Negative Negative [facility] Laboratory - Chemistry and C hemistry - challengeOrdered By: Dr. Douglas on 12-20-2022 ALP [Catalytic activity/Vol] 60 U/L 45-117 [facility] ALT [Catalytic activity/Vol] 23 U/L 13-56 [facility] CO2 [Moles/Vol] 22.0 mmol/L 21.0-32.0 [facility] Globulin (S) [Mass/Vol] 4.3 g/dL 2.2-4.2 [facility] Lipase [Catalytic activity/Vol] 95 U/L 73-393 [facility] Urea nitrogen/Creatinine [Mass ratio] 18.9 mg/mg 10-20 [facility] Laboratory - Hematology and Cell countsOrdered By: Dr. Douglas on 12-20-2022 Erythrocyte distribution width (RBC) [Entitic vol] 43.3 fL 35.1-43.9 [facility] Erythrocyte distribution width (RBC) [Ratio] 13.0 % 11.6-14.6 [facility] Immature granulocytes/100 WBC (Bld) 0.500 % 0.0-0.9 [facility] Comment on above: IG% - Immature Granu locytes (promyelocytes, myelocytes and metamyelocytes) > 1% indicates that a LEFT SHIFT is Present. MCH (RBC) [Entitic mass] 29.8 pg 27.0-32.0 [facility] Nucleated RBC/100 WBC (Bld) [Ratio] 0 % 0-5 [facility] MCHC Auto (RBC) [Mass/Vol]Or dered By: Dr. Douglas on 12-20-2022 MCHC (RBC) [Mass/Vol] 32.6 g/dL 32-36 [facility] Mucus LM Ql (Urine sed)Order ed By: Dr. Douglas on 12-20-2022 Mucus Ql (Urine sed) 0 SEEN /hpf [facility] Nitrite Test strip Ql (U)Ord ered By: Dr. Douglas on 12-20-2022 Nitrite Ql (U) Negative Negative [facility] No Panel InformationOrdered By: Dr. Douglas on 12-20-2022 Estimated Creatinine Clearance Calc 79.57 ml/min [facility] Estimated GFR (MDRD) Amer 93 mL/min >60 [facility] Comment on above: GFR Calc Estimated GFR (MDRD) Non-Af Amer 77 mL/min >60 [facility] Comment on above: Non- GFR Calc Platelets bldOrdered By: Dr. Douglas on 12-20-2022 Platelets (Bld) [#/Vol] 271 10*3/uL 150-450 [facility] Protein Test strip Ql (U)Ord ered By: Dr. Douglas on 12-20-2022 Protein Ql (U) Negative Negative [facility] Serum or plasma albumin sudha urement (mass/volume)Ordered By: Dr. Douglas on 12-20-2022 Albumin [Mass/Vol] 3.4 g/dL 3.2-5.0 [facility] Serum or plasma albumin/glob ulin mass ratioOrdered By: Dr. Douglas on 12-20-2022 Albumin/Globulin [Mass ratio] 0.8 {ratio} 0.9-2.4 [facility] Serum or plasma calcium sudha urement (mass/volume)Ordered By: Dr. Douglas on 12-20-2022 Calcium [Mass/Vol] 10.1 mg/dL 8.5-10.1 [facility] Serum or plasma creatinine m easurement (mass/volume)Ordered By: Dr. Douglas on 12-20-2022 Creatinine [Mass/Vol] 0.85 mg/dL 0.55-1.02 [facility] Comment on above: The validity of the calculated GFR & GFRAA in patients over 70 years has not been determined. Clinical correlation is essential. Serum or plasma urea nitroge n measurement (mass/volume)Ordered By: Dr. Douglas on 12-20-2022 Urea nitrogen [Mass/Vol] 16 mg/dL 7-18 [facility] Squamous epithelial cells de tection in urine sediment by light microscopyOrdered By: Dr. Douglas on 12-20-2022 Epithelial cells.squamous LM Ql (Urine sed) 0-5 SEEN /hpf 5-10 [facility] Thin prep Papanicolaou smear with manual screeningOrdered By: Dr. Douglas on 12-20-2022 Thin prep Papanicolaou smear with manual screening 20 U/L 15-37 [facility] Thin prep Papanicolaou smear with manual screening 6 5-15 [facility] Urine blood detectionOrdered By: Dr. Douglas on 12-20-2022 RBC Ql (U) 25 /ul Negative [facility] RBC Ql (U) 0-5 SEEN /hpf 0-5 [facility] Urine clarityOrdered By: Dr. Douglas on 12-20-2022 Clarity (U) Clear Clear [facility] Urine color determinationOrd ered By: Dr. Douglas on 12-20-2022 Color (U) Yellow Yellow [facility] Urine glucose detectionOrder ed By: Dr. Douglas on 12-20-2022 Glucose Ql (U) Normal mg/dl Normal [facility] Urine leukocyte esterase det ection by dipstickOrdered By: Dr. Douglas on 12-20-2022 Leukocyte esterase Test strip Ql (U) Negative Negative [facility] Urine pHOrdered By: Dr. Danita wells on 12-20-2022 pH (U) 7.0 [pH] 5.0 - 8.0 [facility] Urine sediment bacteria coun t by microscopy (number/high power field)Ordered By: Dr. Douglas on 12-20-2022 Bacteria LM.HPF (Urine sed) [#/Area] RARE /hpf None Seen [facility] Urine specific gravity measu rementOrdered By: Dr. Douglas on 12-20-2022 Specific gravity (U) [Rel density] 1.010 1.002-1.030 [facility] Urobilinogen Auto test strip Ql (U)Ordered By: Dr. Douglas on 12-20-2022 Urobilinogen Ql (U) Normal mg/dl Normal [facility] BENTLEY SCREENINGon 01-28-2022 [facility] Vital Signs Date Time Vital Sign Value Performing Clinician Faci belkis 04-12-2025 16:03-0400 Body height 170.2 cm Ginette Apoorva EMPLOYER RELATIONS REPRESENTATIVE.STORE RECEIVING SPECIALIST Work Phone: [facility] 04-12-2025 16:03-0400 Body mass index (BMI) [Ratio] 50.65 kg/m2 Ginette Cottonwood EMPLOYER RELATIONS REPRESENTATIVE.STORE RECEIVING SPECIALIST Work Phone: [facility] 04-12-2025 16:03-0400 Body weight 146.69 kg Ginette Apoorva EMPLOYER RELATIONS REPRESENTATIVE.STORE RECEIVING SPECIALIST Work Phone: [facility] 04-12-2025 16:03-0400 Diastolic blood pressure 78 mm[Hg] Ginette Apoorva EMPLOYER RELATIONS REPRESENTATIVE.STORE RECEIVING SPECIALIST Work Phone: [facility] 04-12-2025 16:03-0400 Systolic blood pressure 124 mm[Hg] Ginette Cottonwood EMPLOYER RELATIONS REPRESENTATIVE.STORE RECEIVING SPECIALIST Work Phone: [facility] 04-12-2025 07:37-0400 Body height 170.[address] Zeinab Walton MD Work Phone: [facility] 04-12-2025 07:37-0400 Body mass index (BMI) [Ratio] 50.7 kg/m2 Dr. Zeinab Walton MD Work Phone: [facility] 04-12-2025 07:37-0400 Body temperature 96.8 [degF] Dr. Zeinab Walton MD Work Phone: [facility] 04-12-2025 07:37-0400 Body weight 146.[address] Zeinab Walton MD Work Phone: [facility] 04-12-2025 07:37-0400 Diastolic blood pressure 90 mm[Hg] Dr. Zeinab Walton MD Work Phone: [facility] 04-12-2025 07:37-0400 Heart rate 96 /min Dr. Zeinab Walton MD Work Phone: [facility] 04-12-2025 07:37-0400 Respiratory rate 18 /min Dr. Zeinab Walton MD Work Phone: [facility] 04-12-2025 07:37-0400 SaO2% (BldA) [Mass fraction] 97 % Dr. Zeinab Walton MD Work Phone: [facility] 04-12-2025 07:37-0400 Systolic blood pressure 144 mm[Hg] Dr. Zeinab Walton MD Work Phone: [facility] 04-10-2025 08:30-0400 Body mass index (BMI) [Ratio] 50.4 kg/m2 Dr. Zeinab Walton MD Work Phone: [facility] 04-10-2025 08:30-0400 Body temperature 97.4 [degF] Dr. Zeinab Walton MD Work Phone: [facility] 04-10-2025 08:30-0400 Body weight 146.[address] Zeinab Walton MD Work Phone: [facility] 04-10-2025 08:30-0400 Diastolic blood pressure 91 mm[Hg] Dr. Zeinab Walton MD Work Phone: [facility] 04-10-2025 08:30-0400 Heart rate 77 /min Dr. Zeinab Walton MD Work Phone: [facility] 04-10-2025 08:30-0400 Inhaled oxygen flow rate 98 L/min Dr. Zeinab Walton MD Work Phone: [facility] 04-10-2025 08:30-0400 Respiratory rate 16 /min Dr. Zeinab Walton MD Work Phone: [facility] 04-10-2025 08:30-0400 SaO2% (BldA) [Mass fraction] 98 % Dr. Zeinab Walton MD Work Phone: [facility] 04-10-2025 08:30-0400 Systolic blood pressure 148 mm[Hg] Dr. Zeinab Walton MD Work Phone: [facility] 04-05-2024 09:10-0400 Body height 168.3 cm Ginette Cottonwood EMPLOYER RELATIONS REPRESENTATIVE.STORE RECEIVING SPECIALIST Work Phone: [facility] 04-05-2024 09:10-0400 Body mass index (BMI) [Ratio] 49.66 kg/m2 Ginette Apoorva EMPLOYER RELATIONS REPRESENTATIVE.STORE RECEIVING SPECIALIST Work Phone: [facility] 04-05-2024 09:10-0400 Body weight 140.62 kg Ginette Cottonwood EMPLOYER RELATIONS REPRESENTATIVE.STORE RECEIVING SPECIALIST Work Phone: [facility] 04-05-2024 09:10-0400 Diastolic blood pressure 84 mm[Hg] Ginette Apoorva EMPLOYER RELATIONS REPRESENTATIVE.STORE RECEIVING SPECIALIST Work Phone: [facility] 04-05-2024 09:10-0400 Systolic blood pressure 126 mm[Hg] Ginette Cottonwood EMPLOYER RELATIONS REPRESENTATIVE.STORE RECEIVING SPECIALIST Work Phone: [facility] 10-13-2023 08:12-0500 Body height 168.[address] Zeinab Walton Work Phone: [facility] 10-13-2023 08:12-0500 Body mass index (BMI) [Ratio] 48.2 kg/m2 Dr. Zeinab Walton Work Phone: [facility] 10-13-2023 08:12-0500 Body temperature 98.4 [degF] Dr. Zeinab Walton Work Phone: [facility] 10-13-2023 08:12-0500 Body weight 137.[address] Zeinab Walton Work Phone: [facility] 10-13-2023 08:12-0500 Diastolic blood pressure 82 mm[Hg] Dr. Zeinab Walton Work Phone: [facility] 10-13-2023 08:12-0500 Heart rate 83 /min Dr. Zeinab Walton Work Phone: [facility] 10-13-2023 08:12-0500 Respiratory rate 17 /min Dr. Zeinab Walton Work Phone: [facility] 10-13-2023 08:12-0500 SaO2% (BldA) [Mass fraction] 97 % Dr. Zeinab Walton Work Phone: [facility] 10-13-2023 08:12-0500 Systolic blood pressure 162 mm[Hg] Dr. Zeinab Walton Work Phone: [facility] 04-12-2023 11:16-0400 Diastolic blood pressure 82 mm[Hg] Dr. Brandon Sandoval Work Phone: [facility] 04-12-2023 11:16-0400 Systolic blood pressure 128 mm[Hg] Dr. Brandon Sandoval Work Phone: [facility] 04-12-2023 10:03-0400 Body height 168.[address] Brandon Sandoval Work Phone: [facility] 04-12-2023 10:03-0400 Body mass index (BMI) [Ratio] 49.8 kg/m2 Dr. Brandon Sandoval Work Phone: [facility] 04-12-2023 10:03-0400 Body temperature 97.5 [degF] Dr. Brandon Sandoval Work Phone: [facility] 04-12-2023 10:03-0400 Body weight 142.[address] Brandon Sandoval Work Phone: [facility] 04-12-2023 10:03-0400 Heart rate 95 /min Dr. Brandon Sandoval Work Phone: [facility] 04-12-2023 10:03-0400 Respiratory rate 16 /min Dr. Brandon Sandoval Work Phone: [facility] 04-12-2023 10:03-0400 SaO2% (BldA) [Mass fraction] 95 % Dr. Brandon Sandoval Work Phone: [facility] 04-07-2023 14:41-0400 Body temperature 98 [degF] Dr. Brandon Sandoval Work Phone: [facility] 04-07-2023 14:41-0400 Diastolic blood pressure 92 mm[Hg] Dr. Brandon Sandoval Work Phone: [facility] 04-07-2023 14:41-0400 Heart rate 68 /min Dr. Brandon Sandoval Work Phone: [facility] 04-07-2023 14:41-0400 Respiratory rate 18 /min Dr. Brandon Sandoval Work Phone: [facility] 04-07-2023 14:41-0400 SaO2% (BldA) [Mass fraction] 98 % Dr. Brandon Sandoval Work Phone: [facility] 04-07-2023 14:41-0400 Systolic blood pressure 159 mm[Hg] Dr. Brandon Sandoval Work Phone: [facility] 04-07-2023 11:29-0400 Body mass index (BMI) [Ratio] 48.9 kg/m2 Dr. Brandon Sandoval Work Phone: [facility] 04-07-2023 11:29-0400 Body weight 141.[address] Brandon Sandoval Work Phone: [facility] 03-02-2023 13:39-0400 Body mass index (BMI) [Ratio] 49.4 kg/m2 Dr. Brandon Sandoval Work Phone: [facility] 03-02-2023 13:39-0400 Body temperature 97 [degF] Dr. Brandon Sandoval Work Phone: [facility] 03-02-2023 13:39-0400 Body weight 143.[address] Brandon Sandoval Work Phone: [facility] 03-02-2023 13:39-0400 Diastolic blood pressure 92 mm[Hg] Dr. Brandon Sandoval Work Phone: [facility] 03-02-2023 13:39-0400 Heart rate 77 /min Dr. Brandon Sandoval Work Phone: [facility] 03-02-2023 13:39-0400 Respiratory rate 18 /min Dr. Brandon Sandoval Work Phone: [facility] 03-02-2023 13:39-0400 SaO2% (BldA) [Mass fraction] 98 % Dr. Brandon Sandoval Work Phone: [facility] 03-02-2023 13:39-0400 Systolic blood pressure 158 mm[Hg] Dr. Brandon Sandoval Work Phone: [facility] 02-18-2023 12:50-0400 Body height 170.2 cm Ginette Cottonwood EMPLOYER RELATIONS REPRESENTATIVE.STORE RECEIVING SPECIALIST Work Phone: [facility] 02-18-2023 12:50-0400 Body weight 145.15 kg Ginette Cottonwood EMPLOYER RELATIONS REPRESENTATIVE.STORE RECEIVING SPECIALIST Work Phone: [facility] 02-18-2023 12:50-0400 Diastolic blood pressure 86 mm[Hg] Ginette Apoorva EMPLOYER RELATIONS REPRESENTATIVE.STORE RECEIVING SPECIALIST Work Phone: [facility] 02-18-2023 12:50-0400 Systolic blood pressure 134 mm[Hg] Ginette Cottonwood EMPLOYER RELATIONS REPRESENTATIVE.STORE RECEIVING SPECIALIST Work Phone: [facility] 01-20-2023 17:25-0400 Body temperature 97 [degF] [facility] 01-20-2023 17:25-0400 Diastolic blood pressure 82 mm[Hg] [facility] 01-20-2023 17:25-0400 Heart rate 63 /min [facility] 01-20-2023 17:25-0400 Respiratory rate 18 /min [facility] 01-20-2023 17:25-0400 SaO2% (BldA) [Mass fraction] 100 % [facility] 01-20-2023 17:25-0400 Systolic blood pressure 145 mm[Hg] [facility] 01-20-2023 13:41-0400 Body height 170.18 cm [facility] 01-20-2023 13:41-0400 Body mass index (BMI) [Ratio] 50.7 kg/m2 [facility] 01-20-2023 13:41-0400 Body weight 147 kg [facility] 12-21-2022 14:00-0400 Body temperature 96.9 [degF] [facility] 12-21-2022 14:00-0400 Diastolic blood pressure 85 mm[Hg] [facility] 12-21-2022 14:00-0400 Heart rate 65 /min [facility] 12-21-2022 14:00-0400 Respiratory rate 16 /min [facility] 12-21-2022 14:00-0400 SaO2% (BldA) [Mass fraction] 98 % [facility] 12-21-2022 14:00-0400 Systolic blood pressure 153 mm[Hg] [facility] 12-21-2022 10:18-0400 Body height 170.18 cm [facility] 12-21-2022 10:18-0400 Body mass index (BMI) [Ratio] 52 kg/m2 [facility] 12-21-2022 10:18-0400 Body weight 150.6 kg [facility] 12-20-2022 10:13-0400 Body temperature 98.1 [degF] [facility] 12-20-2022 10:13-0400 Diastolic blood pressure 75 mm[Hg] [facility] 12-20-2022 10:13-0400 Heart rate 76 /min [facility] 12-20-2022 10:13-0400 Respiratory rate 16 /min [facility] 12-20-2022 10:13-0400 Systolic blood pressure 142 mm[Hg] [facility] 12-20-2022 09:00-0400 SaO2% (BldA) [Mass fraction] 97 % [facility] 12-20-2022 06:22-0400 Body height 170.18 cm [facility] 12-20-2022 06:22-0400 Body mass index (BMI) [Ratio] 54.2 kg/m2 [facility] 12-20-2022 06:22-0400 Body weight 157 kg [facility] 01-28-2022 07:53-0400 Body height 168.9 cm Ginette Apoorva EMPLOYER RELATIONS REPRESENTATIVE.STORE RECEIVING SPECIALIST Work Phone: [facility] 01-28-2022 07:53-0400 Body weight 148.42 kg Ginette Apoorva EMPLOYER RELATIONS REPRESENTATIVE.STORE RECEIVING SPECIALIST Work Phone: [facility] 01-28-2022 07:53-0400 Diastolic blood pressure 80 mm[Hg] Ginette Cottonwood EMPLOYER RELATIONS REPRESENTATIVE.STORE RECEIVING SPECIALIST Work Phone: [facility] 01-28-2022 07:53-0400 Systolic blood pressure 128 mm[Hg] Ginette Apoorva EMPLOYER RELATIONS REPRESENTATIVE.STORE RECEIVING SPECIALIST Work Phone: [facility] Encounters Encounter Date Encounter Type Care Provider Facility Start: 04-17-2025 Encounter for genera l adult medical examination without abnormal findings Elías GARCIA [facility] Start: 04-12-2025 End: 04-12-2025 ambulatory [facility] Facility:[facility] Start: 04-12-2025 Encounter for gynecological examination (general) (routine) without abnormal findings [facility] Start: 04-12-2025 End: 04-12-2025 Patient encounter status [facility] EMPLOYER RELATIONS REPRESENTATIVE.STORE RECEIVING SPECIALIST Work Phone: [facility] Start: 04-12-2025 End: 04-12-2025 Patient encounter procedure Elías GARCIA -[facility] Work Phone: Comment on above: Encounter for gyneco logical examination (general) (routine) without abnormal findings (Primary Dx); Encounter for screening mammogram for breast cancer; Premature surgical menopause Start: 04-12-2025 End: 04-12-[address] Zeinab Walton MD Work Phone: -[facility] Start: 04-12-2025 End: 04-12-2025 ambulatory Zeinab Walton Facility:[facility] Start: 04-10-2025 End: 04-10-2025 Patient encounter procedure Brenda Bundy CORSETIERRickC -[facility] Work Phone: Start: 04-10-2025 End: 04-10-[address] Zeinab Walton MD Work Phone: -[facility] Start: 04-10-2025 End: 04-10-2025 Patient encounter status Screen [facility] Start: 04-10-2025 End: 04-10-2025 Subsequent hospital visit by physician Screen Mammo [facility] Comment on above: Encounter for gyneco logical examination (general) (routine) without abnormal findings [Z01.419] Start: 03-19-2025 Non-patient / Non-visit Dr. Dali tolliver MD -[facility] Work Phone: Start: 11-23-2024 End: 11-23-2024 Refill Ginette Cottonwood EMPLOYER RELATIONS REPRESENTATIVE.STORE RECEIVING SPECIALIST Work Phone: OB/Gynecology Comment on above: Refill Request Start: 09-17-2024 End: 09-17-2024 [facility] Start: 05-04-2024 End: 05-04-2024 ambulatory Dali Biswas Facility:[facility] Start: 04-26-2024 End: 04-26-20[facility] Start: 04-05-2024 End: 04-05-2024 Patient encounter procedure Ginette Cottonwood EMPLOYER RELATIONS REPRESENTATIVE.STORE RECEIVING SPECIALIST Work Phone: OB/Gynecology Comment on above: Encounter for gyneco logical examination (general) (routine) without abnormal findings (Primary Dx); Encounter for screening mammogram for breast cancer Start: 04-05-2024 End: 04-05-2024 Patient encounter status Ginette Apoorva EMPLOYER RELATIONS REPRESENTATIVE.STORE RECEIVING SPECIALIST Work Phone: [facility] Start: 03-16-2024 Documentation procedure Mammog kiran Coordinator [facility] Start: 03-16-2024 Letter encounter Mammography Coordinator [facility] Start: 03-15-2024 End: 03-15-2024 Subsequent hospital visit by physician Screen Mammo [facility] Comment on above: Encounter for screen ing mammogram for breast cancer [Z12.31] Start: 02-21-2024 Refill Ginettedorys Larios EMPLOYER RELATIONS REPRESENTATIVE.STORE RECEIVING SPECIALIST Work Phone: OB/Gynecology Comment on above: Refill Request Start: 11-30-2023 End: 11-30-[address] Zeinab Walton Work Phone: [facility] Work Phone: Start: 11-30-2023 End: 11-30-[address] Zeinab Walton Work Phone: [facility]-Nuclear Medicine, [facility] Work Phone: Start: 11-05-2023 End: 11-05-[address] Zeinab Walton Work Phone: [facility] Work Phone: Start: 11-05-2023 End: 11-05-[address] Zeinab Walton Work Phone: [facility]-Laboratory Work Phone: Start: 10-13-2023 End: 10-13-[address] Zeinab Walton Work Phone: [facility] Work Phone: Start: 08-03-2023 End: 08-03-2023 ambulatory No Primary Care Physician [facility] Work Phone: Start: 08-03-2023 End: 08-03-2023 Patient encounter procedure No Primary Care Physician [facility], [facility] Work Phone: Start: 06-09-2023 End: 06-09-[address] Brandon Sandoval Work Phone: [facility] Work Phone: Start: 06-09-2023 End: 06-09-[address] Brandon Sandoval Work Phone: [facility] Work Phone: Start: 05-30-2023 End: 05-30-[address] Brandon Sandoval Work Phone: [facility] Work Phone: Start: 05-30-2023 End: 05-30-[address] Brandon Sandoval Work Phone: [facility] Work Phone: Start: 05-18-2023 End: 05-18-2023 Subsequent hospital visit by physician Bone Density [facility] Work Phone: Radiology Comment on above: Premature surgical m enopause [E89.40] Start: 05-11-2023 End: 05-11-[address] Brandon Sandoval Work Phone: [facility] Work Phone: Start: 05-11-2023 End: 05-11-[address] Brandon Sandoval Work Phone: [facility] Work Phone: Start: 04-12-2023 End: 04-12-[address] Brandon Sandoval Work Phone: [facility] Work Phone: Start: 04-07-2023 End: 04-07-2023 Admission to same day surgery center [facility] Start: 03-02-2023 End: 03-02-[address] Brandon Sandoval Work Phone: [facility] Work Phone: Start: 02-18-2023 End: 02-18-2023 ambulatory [facility] Work Phone: Start: 02-18-2023 End: 02-18-2023 Patient encounter procedure Ginette Larios APRN.STORE RECEIVING SPECIALIST Work Phone: OB/Gynecology Comment on above: Encounter for gyneco logical examination (general) (routine) without abnormal findings (Primary Dx); Encounter for screening mammogram for breast cancer; Premature surgical menopause; Encounter for screening for osteoporosis Start: 02-18-2023 End: 02-18-2023 Patient encounter status Ginette Larios APRN.STORE RECEIVING SPECIALIST Work Phone: OB/Gynecology Start: 02-18-2023 End: 02-18-2023 Subsequent hospital visit by physician Screen Mammo [facility] Comment on above: Encounter for screen ing mammogram for breast cancer [Z12.31] Start: 02-02-2023 End: 02-02-2023 Patient encounter procedure [facility] Start: 01-20-2023 End: 01-20-2023 Admission to same day surgery center [facility] Start: 01-20-2023 End: 01-20-2023 ambulatory [facility] Work Phone: Start: 12-21-2022 End: 12-21-2022 Admission to same day surgery center [facility] Start: 12-21-2022 End: 12-21-2022 ambulatory [facility] Work Phone: Start: 12-20-2022 End: 12-20-2022 Emergency department patient visit [facility] Start: 01-28-2022 Documentation procedure Mammog kiran Coordinator [facility] Start: 01-28-2022 Letter encounter Mammography Coordinator [facility] Department Start: 01-28-2022 Refill Ashlie DELUNA RN.CYNDEE Work Phone: OB/Gynecology Comment on above: Refill Request Start: 01-28-2022 End: 01-28-2022 Patient encounter procedure Ginette Larios APRN.CNP Work Phone: OB/Gynecology Comment on above: Encounter for gyneco logical examination (general) (routine) without abnormal findings (Primary Dx); Encounter for screening mammogram for breast cancer Start: 01-28-2022 End: 01-28-2022 Patient encounter status Ginette Larios APRN.CNP Work Phone: OB/Gynecology Start: 01-28-2022 End: 01-28-2022 Subsequent hospital visit by physician Screen Mammo [facility] Comment on above: Encounter for screen ing mammogram for malignant neoplasm of breast [Z12.31] Start: 01-22-2022 Orders Only Ginette Larios APRN.CNP Work Phone: [facility] Comment on above: Encounter for screen ing mammogram for malignant neoplasm of breast (Primary Dx) Procedures Date Procedure Procedure Detail Performing Clinician Start: 04-12-2025 Vitamin D, 25-hydrox y measurement Dr. Zeinab Walton MD Work Phone: Comment on above: Vitamin D StatusDefi ciency: <20 ng/mL (50nmol/L)Insufficiency: 20-30 ng/mL (50-75 nmol/L)Sufficiency: 30-100 ng/mL (75-250 nmol/L)Toxicity: >100 ng/mL (>250 nmol/L) Start: 04-05-2024 H/O: hysterectomy History of hystere ctomy Ginette Larios APRN.STORE RECEIVING SPECIALIST Work Phone: Start: 04-05-2024 History of tonsillectomy Histo ry of tonsillectomy and adenoidectomy Ginette Larios APRN.CNP Work Phone: Start: 11-30-2023 US scan of thyroid Dr. Zeinab Walton Work Phone: Start: 11-30-2023 Radioisotope scan of parathyroid Dr. Zeinab Walton Work Phone: Start: 08-03-2023 CT of face No Primary Care Physician Start: 05-18-2023 Dxa bone density carol dy 1/> sites axial skel Ginette Romerof EMPLOYER RELATIONS REPRESENTATIVE.STORE RECEIVING SPECIALIST Work Phone: Start: 04-07-2023 Fluoroscopic guidance Soledad Sandoval Work Phone: Start: 02-18-2023 Diagnostic radiograp hy of abdomen Start: 02-18-2023 Screening mammograph y bi 2-view breast inc cad Gientte Lackeycalf EMPLOYER RELATIONS REPRESENTATIVE.STORE RECEIVING SPECIALIST Work Phone: Start: 02-02-2023 Diagnostic radiograp hy of abdomen Start: 01-20-2023 Extracorporeal shock wave lithotripsy Start: 12-21-2022 Cystoscopy and retrograde pyelography Start: 12-21-2022 Fluoroscopic guidance Start: 12-20-2022 Computed tomography of abdomen and pelvis with intravenous contrast Start: 01-28-2022 End: 01-28-2022 Mammography Ginette Lackeycalf EMPLOYER RELATIONS REPRESENTATIVE.STORE RECEIVING SPECIALIST Work Phone: Start: 11-27-2020 Mammography [facility] EMPLOYER RELATIONS REPRESENTATIVE.STORE RECEIVING SPECIALIST Work Phone: Start: 12-26-2018 Adult depression screening assessment Ginette Lackeycalf EMPLOYER RELATIONS REPRESENTATIVE.STORE RECEIVING SPECIALIST Work Phone: Start: 03-17-2016 Lipid 1996 panel - S caleb or Plasma Screen Wstr H/O: hysterectomy History of hysterectomy History of tonsillectomy History of tonsillectomy and adenoidectomy Plan of Treatment Date Care Activity Detail Author Start: 05-01-2026 Screening for malign ant neoplasm of colon [facility] Start: 04-10-2026 Screening for malign ant neoplasm of breast Mammogram Screening [facility] Start: 05-20-2025 Influenza vaccination Influenza Vacc ine (#1) [facility] Start: 05-03-2025 End: 05-03-2025 Patient encounter procedure 05/03/2025 1:30 PM EDT Office Visit OB/Gynecology [address] [place] [address] Ginette Larios APRN.STORE RECEIVING SPECIALIST [address] [place] [address] N/A OB/Gynecology Comment on above: N/A Start: 04-12-2025 CBC W Auto Different ial panel - Blood [facility] Start: 04-12-2025 Comprehensive metabo lic 2000 panel - Serum or Plasma [facility] Start: 04-12-2025 Lipid 1996 panel - S caleb or Plasma [facility] Start: 04-12-2025 Thyroid stimulating hormone measurement [facility] Start: 04-12-2025 Vitamin D, 25-hydrox y measurement [facility] Start: 04-08-2025 End: 04-08-2025 Patient encounter procedure 04/08/2025 9:00 AM EDT Office Visit OB/Gynecology [address] [place] [address] Ginette Larios APRN.STORE RECEIVING SPECIALIST [address] [place] [address] Annual OB/Gynecology Comment on above: Annual Start: 03-15-2025 Screening for malign ant neoplasm of breast Mammogram Screening [facility] Start: 03-15-2025 End: 03-15-2025 Patient encounter procedure 03/15/2025 7:50 AM EDT Appointment Mammogram [address] [place] [address] Encounter for gynecological examination (general) (routine) without abnormal findings [Z01.419]; Encounter for screening mammogram for breast cancer [Z12.31] Mammogram Comment on above: Encounter for gyneco logical examination (general) (routine) without abnormal findings [Z01.419]; Encounter for screening mammogram for breast cancer [Z12.31] Start: 05-20-2024 Covid-19 Vaccine ( season) Covid-19 Vaccine ( season) [facility] Start: 05-20-2024 Influenza vaccination C [facility] Start: 04-05-2024 End: 04-05-2024 Patient encounter procedure OB/Gynecology Comment on above: N/A Start: 03-15-2024 End: 03-15-2024 Patient encounter procedure 03/15/2024 7:50 AM EDT Appointment Mammogram [address] [place] [address] Mammogram Start: 02-19-2024 Mammography Mammogram Screening [facility] Start: 02-19-2024 Screening for malign ant neoplasm of breast Mammogram Screening [facility] Start: 09-19-2023 Behavioral Health Screening Behavioral Health Screening [facility] Start: 05-20-2023 Covid-19 Vaccine ( season) Covid-19 Vaccine () [facility] Start: 05-20-2023 Influenza vaccination C [facility] Start: 04-07-2023 Anes trurl fragmntj manj&/rmvl ureteral calculus ANESTH STONE REMOVAL [facility] Start: 04-07-2023 Cysto/uretero w/lithotripsy &indwell stent insrt CYSTO/URETERO W/LITHOTRIPSY [facility] Start: 04-07-2023 Patient discharge [facility] Start: 01-28-2023 Mammography MAMMOGRAM [facility] Start: 01-20-2023 Patient discharge [facility] Start: 01-20-2023 Anes lithotrp xtrcor p shock wave w/o water bath ANESTH KIDNEY STONE DESTRUCT [facility] Start: 01-20-2023 Cysto w/insert urete ral stent CYSTOSCOPY AND TREATMENT [facility] Start: 01-20-2023 Lithotripsy xtrcorp shock wave FRAGMENTING OF KIDNEY STONE [facility] Start: 12-21-2022 Anes lithotrp xtrcor p shock wave w/o water bath ANESTH KIDNEY STONE DESTRUCT [facility] Start: 12-21-2022 Cysto/uretero w/lithotripsy &indwell stent insrt CYSTO/URETERO W/LITHOTRIPSY [facility] Start: 12-21-2022 Patient discharge [facility] Start: 09-19-2022 DEPRESSION ASSESSMENT DEPRESSION ASS ESSMENT [facility] Start: 05-20-2022 Influenza vaccination INFLUENZ A (Season Ended) [facility] Start: 11-27-2021 Mammography MAMMOGRAM [facility] Start: 03-17-2021 Lipid 1996 panel - S caleb or Plasma Lipid Screening [facility] Start: 03-17-2021 Lipid panel Lipid Screening [facility] Start: 03-17-2021 LIPID SCREEN LIPID SCREEN [facility] Start: 12-18-2020 COLOGUARD (FIT-DNA) COLOGUARD (FIT-D NA) [facility] Start: 12-18-2020 Colonoscopy COLONOSCOPY [facility] Start: 12-18-2020 COLORECTAL CANCER SCREENING COLORECTAL CANCER SCREENING [facility] Start: 12-18-[address] COLONOGRAPHY [facility] Start: 12-18-2020 DIABETES SCREEN [facility] Start: 12-18-2020 Diabetes Screening Diabetes Screenin g [facility] Start: 12-18-2020 FECAL OCCULT BLOOD FECAL OCCULT BLOO D [facility] Start: 12-18-2020 Screening for malign ant neoplasm of colon [facility] Start: 12-18-2020 SIGMOIDOSCOPY SIGMOIDOSCOPY [facility] Start: 12-27-2019 Adult depression scr eening assessment DEPRESSION SCREENING [facility] Start: 09-16-2017 Urine microalbumin profile [facility] Start: 12-18-1994 Hepatitis B Vaccine (1 of 3 - 19+ 3-dose series) Hepatitis B Vaccine (1 of 3 - 19+ 3-dose series) [facility] Start: 12-18-1993 Anxiety Screening Anxiety Screening [facility] Start: 12-18-1993 Depression Screening Depression Scre ening [facility] Start: 12-18-1993 HEPATITIS C SCREENING HEPATITIS C SC [facility] Start: 12-18-1993 Hepatitis C screening Hepatitis C Sc [facility] Start: 12-18-1993 HIV SCREENING HIV SCREENING [facility] Start: 12-18-1993 HIV screening HIV Screening [facility] Start: 12-18-1980 COVID-19 VACCINE (#1) COVID-19 VACCI NE (#1) [facility] Start: 12-18-1980 COVID-19 VACCINE (1) COVID-19 VACCIN E (1) [facility] Start: 06-19-1976 COVID-19 VACCINE (#1) COVID-19 VACCI NE (#1) [facility] Start: 1975 HEPATITIS B (1 of 3 - 3-dose series) HEPATITIS B (1 of 3 - 3-dose series) [facility] Start: 1975 Hepatitis B Vaccine (1 of 3 - 3-dose series) Hepatitis B Vaccine (1 of 3 - 3-dose series) [facility] Alanine aminotransfe rase [Enzymatic activity/volume] in Serum or Plasma [facility] Albumin [Mass/volume ] in Serum or Plasma [facility] Alkaline phosphatase [Enzymatic activity/volume] in Serum or Plasma [facility] Anion gap in Serum o r Plasma [facility] Bilirubin, total measurement [facility] BUN/Creatinine ratio [facility] Calcium [Mass/volume ] in Serum or Plasma [facility] Calculus analysis [facility] Carbon dioxide, tota l [Moles/volume] in Central venous blood [facility] Cholesterol [Mass/vo lume] in Serum or Plasma [facility] Cholesterol in HDL [Mass/volume] in Serum or Plasma [facility] Creatinine [Mass/vol ume] in Serum or Plasma [facility] End: 05-05-2025 DBT Breast - bilateral screening [facility] Radiology Routine Encounter for gynecological examination (general) (routine) without abnormal findings Encounter for screening mammogram for breast cancer 1 Occurrences starting 04/05/2024 until 05/05/2025 [facility] Work Phone: Comment on above: 1 Occurrences starti ng 04/05/2024 until 05/05/2025 DBT Breast - bilater al screening [facility] SCREENING [facility] Radiology Routine Encounter for gynecological examination (general) (routine) without abnormal findings Encounter for screening mammogram for breast cancer 04/10/2025 9:[address] [facility] Work Phone: End: 05-12-2026 DBT Breast - bilateral screening [facility]ENT[facility] SCREENING [facility] Radiology Routine Encounter for gynecological examination (general) (routine) without abnormal findings Encounter for screening mammogram for breast cancer 1 Occurrences starting 04/12/2025 until 05/12/2026 [facility] Work Phone: Comment on above: 1 Occurrences starti ng 04/12/2025 until 05/12/2026 End: 03-19-2024 DXA-AXIAL SKELETON DXA-AXIAL SKELETON Radiology Routine Premature surgical menopause Encounter for screening for osteoporosis 1 Occurrences starting 02/18/2023 until 03/19/2024 [facility] Work Phone: Comment on above: 1 Occurrences starti ng 02/18/2023 until 03/19/2024 Erythrocyte mean corpuscular volume determination [facility] Glucose [Mass/volume ] in Serum or Plasma [facility] Hematocrit [Volume Fraction] of Blood [facility] Hemoglobin [Mass/vol ume] in Blood [facility] Leukocytes [#/volume ] in Blood [facility] Lipid 1996 panel - S caleb or Plasma [facility] Low density lipoprot ein cholesterol measurement [facility] End: 03-19-2024 BENTLEY SCREENING [facility]CRE[facility] Radiology Routine Encounter for screening mammogram for breast cancer 1 Occurrences starting 02/18/2023 until 03/19/2024 [facility] Work Phone: Comment on above: 1 Occurrences starti ng 02/18/2023 until 03/19/2024 Mean corpuscular hemoglobin concentration determination [facility] Mean corpuscular hemoglobin determination [facility] Measurement of renal function [facility] Measurement of weigh t of calculus [facility] MG Breast Screening [facility] SCREENIN G Radiology Routine Encounter for screening mammogram for breast cancer 03/15/2024 8:[address] [facility] Work Phone: Neutrophil count [facility] Neutrophil percent differential count [facility] Origin of Stone [facility] Patient Education ED Kidney Ston e w/ Colic [facility] Work Phone: Patient referral [facility] Work Phone: Platelets [#/volume] in Blood [facility] Potassium measurement [facility] Red blood cell count [facility] Red cell distributio n width determination [facility] End: 02-21-2023 Screening mammography bi 2-view breast inc cad [facility] Radiology Routine Encounter for screening mammogram for malignant neoplasm of breast 1 Occurrences starting 01/25/2022 until 02/21/2023 [facility] Work Phone: Comment on above: 1 Occurrences starti ng 01/25/2022 until 02/21/2023 End: 02-27-2023 Screening mammography bi 2-view breast inc cad [facility] SCREENING Radiology Routine Encounter for screening mammogram for breast cancer 1 Occurrences starting 01/28/2022 until 02/27/2023 [facility] Work Phone: Comment on above: 1 Occurrences starti ng 01/28/2022 until 02/27/2023 Serum chloride measurement [facility] Sodium measurement [facility] Specimen color determination [facility] Thyroid stimulating hormone measurement [facility] Total cholesterol:HD L ratio measurement [facility] Total protein measurement [facility] Triglycerides measurement [facility] Urea nitrogen [Mass/volume] in Serum or Plasma [facility] VLDL cholesterol measurement [facility] Immunizations Immunization Date Immunization Notes Care Provider Fa [facility] 07-07-2024 influenza virus vaccine, unspecified formulation Screen [facility] 07-29-2022 Influenza, injectabl e, [place] Canine Kidney, preservative free, quadrivalent Dr. Brandon Sandoval Work Phone: [facility] 07-29-2022 influenza virus vaccine, unspecified formulation Screen [facility] 08-14-2021 Covid (Pfizer) Dr. Ulises Sandoval Work Phone: [facility] 07-24-2021 Covid (Pfizer) Dr. Ulises Sandoval Work Phone: [facility] 07-03-2021 Influenza, injectabl e, Madin [place] Canine Kidney, preservative free, quadrivalent Dr. Brandon Sandoval Work Phone: [facility] 07-04-2020 influenza, injectabl e, quadrivalent, preservative free Dr. Brandon Sandoval Work Phone: [facility] 07-04-2020 influenza, seasonal, injectable Dr. Brandon Sandoval Work Phone: [facility] 07-21-2019 Influenza, injectabl e, Madin [place] Canine Kidney, preservative free, quadrivalent Dr. Brandon Sandoval Work Phone: [facility] 06-09-2018 influenza, injectabl e, quadrivalent, preservative free Dr. Brandon Sandoval Work Phone: [facility] 06-09-2018 influenza, seasonal, injectable Dr. Brandon Sandoval Work Phone: [facility] 06-10-2017 influenza, injectabl e, quadrivalent, preservative free Dr. Brandon Sandoval Work Phone: [facility] 06-10-2017 influenza, seasonal, injectable Dr. Brandon Sandoval Work Phone: [facility] 06-22-2016 influenza, injectabl e, quadrivalent, preservative free Dr. Brandon Sandoval Work Phone: [facility] 06-22-2016 influenza, seasonal, injectable Dr. Brandon Sandoval Work Phone: [facility] 06-22-2016 influenza, seasonal, injectable, preservative free Ginette Cottonwood EMPLOYER RELATIONS REPRESENTATIVE.STORE RECEIVING SPECIALIST Work Phone: [facility] 08-09-2015 influenza, injectabl e, quadrivalent, preservative free Dr. Brandon Sandoval Work Phone: [facility] 08-09-2015 influenza, seasonal, injectable Dr. Brandon Sandoval Work Phone: [facility] 08-09-2015 influenza, seasonal, injectable, preservative free Ginette Apoorva EMPLOYER RELATIONS REPRESENTATIVE.STORE RECEIVING SPECIALIST Work Phone: [facility] 09-16-2007 tetanus toxoid, reduced diphtheria toxoid, and acellular pertussis vaccine, adsorbed Ginette Cottonwood EMPLOYER RELATIONS REPRESENTATIVE.STORE RECEIVING SPECIALIST Work Phone: [facility] Work Phone: Payers Date Payer Category Payer Private Health Insurance MMO SUP ERMED PPO [id number] 2024 Unknown [id number] 2024 Self-pay [id number] 2024 Unknown [id number] 2020 [employer] Blue [employer] BLUE ACCE SS PPO [id number] 2020 Unknown ANTHEM BLUE ACCE SS PPO [id number] 2020-Present [phone] [address] [place] [address] PPO [id number] 2020 Unknown ANTHEM BLUE ACCE SS PPO [id number] 2020-Present [phone] [address] [place] [id number] PPO [id number] Private Health Insurance [id number] Unknown [facility] [id number] Unknown [id number] Unknown [id number] Unknown [id number] Unknown [id number] Unknown [id number] Unknown [id number] Social History Date Type Detail Facility Start: 08-15-2013 End: 02-01-2024 Tobacco smoking status NHIS Never smoked tobacco [facility] Start: 03-30-2021 End: 04-12-2025 Alcohol intake Current non-drinker of alcohol (finding) [facility] Start: 11-27-2020 History SDOH Social Connections Phone 5 [facility] Start: 11-27-2020 History SDOH Social Connections Get Together 2 [facility] Start: 11-27-2020 History SDOH Social Connections Scientologist 1 [facility] Start: 11-27-2020 History SDOH Social Connections Living 3 [facility] Start: 11-27-2020 History SDOH Physica l Activity DPW 0 [facility] Start: 1975 Sex Assigned At Not on file C [facility] Start: 01-18-2022 End: 01-28-2022 Exposure to SARS-CoV-2 (event) Not sure [facility] Start: 12-20-2022 End: 10-13-2023 Tobacco smoking status NHIS Unknown if ever smoked [facility] Start: 1975 Sex Assigned At Female [facility] Start: 08-15-2013 Tobacco use and exposure Smoke less tobacco non-user [facility] Start: 11-27-2020 End: 02-18-2023 History of Social function [facility] Work Phone: Start: 11-27-2020 End: 02-18-2023 Social connection and isolation panel [facility] Work Phone: Do you belong to any clubs or organizations such as [employer] groups, unions, fraternal or athletic groups, or school groups? No [facility] Work Phone: Are you now , , , , never or living with a partner? [facility] Work Phone: Adult Depression Screening Assessment 0 [facility] Do you feel stress - tense, restless, nervous, or anxious, or unable to sleep at night because your mind is troubled all the time - these days [OSQ] To some extent [facility] Work Phone: NEGATED: Highlighted row [facility] Medical Equipment Procedure Code Equipment Code Equipment Original Text Equipment Identifier Dates Parathyroidectomy DRESSING,SURGI CE L 4x8 FDA Start: 02-23-2024 Parathyroidectomy Ligation clip, metallic ()[id number] FDA Start: 02-23-2024 Parathyroidectomy DRESSING,SURGI CE L 4x8 FDA Start: 02-23-2024 Parathyroidectomy DRESSING,SURGI CE L 4x8 FDA Start: 02-23-2024 Lithotripsy, ESWL Polymeric ureteral stent ()[id number] FDA Start: 01-20-2023 Cystoscopy, with retrograde pyelogram, ureteroscopy, laser procedure, and stent inser STENT,URETERAL PIGTAIL 4.5Fx28 FDA Start: 12-21-2022 Cystoscopy, with retrograde pyelogram, ureteroscopy, laser procedure, and stent inser STENT,URETERAL PIGTAIL 4.5Fx28 FDA Start: 12-21-2022 Cystoscopy, with retrograde pyelogram, ureteroscopy, laser procedure, and stent inser STENT,URETERAL PIGTAIL 4.5Fx28 FDA Start: 12-21-2022 Cystoscopy, with retrograde pyelogram, ureteroscopy, laser procedure, and stent inser STENT,URETERAL PIGTAIL 4.5Fx28 FDA Start: 12-21-2022 Cystoscopy, with retrograde pyelogram, ureteroscopy, laser procedure, and stent inser STENT,URETERAL PIGTAIL 4.5Fx28 FDA Start: 12-21-2022 Cystoscopy, with retrograde pyelogram, ureteroscopy, laser procedure, and stent inser STENT,URETERAL PIGTAIL 4.5Fx28 FDA Start: 12-21-2022 Cystoscopy, with retrograde pyelogram, ureteroscopy, laser procedure, and stent inser STENT,URETERAL PIGTAIL 4.5Fx28 FDA Start: 12-21-2022 Cystoscopy, with retrograde pyelogram, ureteroscopy, laser procedure, and stent inser STENT,URETERAL PIGTAIL 4.5Fx28 FDA Start: 12-21-2022 Cystoscopy, with retrograde pyelogram, ureteroscopy, laser procedure, and stent inser STENT,URETERAL PIGTAIL 4.5Fx28 FDA Start: 12-21-2022 Cystoscopy, with retrograde pyelogram, ureteroscopy, laser procedure, and stent inser STENT,URETERAL PIGTAIL 4.5Fx28 FDA Start: 12-21-2022 Cystoscopy, with retrograde pyelogram, ureteroscopy, laser procedure, and stent inser STENT,URETERAL PIGTAIL 4.5Fx28 FDA Start: 12-21-2022 STENT,URETERAL PIGTAIL 4.5Fx26 FDA Start: 04-07-2023 STENT,URETERAL PIGTAIL 4.5Fx26 FDA Start: 04-07-2023 STENT,URETERAL PIGTAIL 4.5Fx26 FDA Start: 04-07-2023 STENT,URETERAL PIGTAIL 4.5Fx26 FDA Start: 04-07-2023 STENT,URETERAL PIGTAIL 4.5Fx26 FDA Start: 04-07-2023 STENT,URETERAL PIGTAIL 4.5Fx26 FDA Start: 04-07-2023 STENT,URETERAL PIGTAIL 4.5Fx26 FDA Start: 04-07-2023 STENT,URETERAL PIGTAIL 4.5Fx26 FDA Start: 04-07-2023 STENT,URETERAL PIGTAIL 4.5Fx26 FDA Start: 04-07-2023 Goals Date Patient Goal Desired Activity /State Functional Status Date Assessment Result Facility 04-26-2015 Are you deaf, or do you have serious difficulty hearing No 04/26/2015 12:25 PM EDT Dinora Díaz LPN No [facility] 04-26-2015 Are you blind, or do you have serious difficulty seeing, even when wearing glasses No 04/26/2015 12:25 PM EDT Dinora Díaz LPN No [facility] 04-26-2015 Do you have serious difficulty walking or climbing stairs No 04/26/2015 12:25 PM EDT Dinora Díaz LPN No [facility] 04-26-2015 Do you have difficul ty dressing or bathing No 04/26/2015 12:25 PM EDT Dinora Díaz LPN No [facility] 04-26-2015 Because of a physica l, mental, or emotional condition, do you have difficulty doing errands alone such as visiting a physician's office or shopping No 04/26/2015 12:25 PM EDT Dinora Díaz LPN No [facility] Mental Status Date Assessment Result Facility 04-07-2023 Cognitive function Voice/Name [facility] Work Phone: 01-20-2023 Cognitive function Level Of Cons ciousness Sedated [facility] Work Phone: 01-20-2023 Cognitive function Voice/Name [facility] Work Phone: 12-21-2022 Cognitive function Voice/Name [facility] Work Phone: 12-21-2022 Cognitive function Patient [place] Person;Place;Time [facility] Work Phone: 04-26-2015 Because of a physica l, mental, or emotional condition, do you have serious difficulty concentrating, remembering, or making decisions No 04/26/2015 12:25 PM EDT Dinora Díaz LPN No [facility] Clinical Notes 01-28-2022 to 04-12-2025 Ginette Larios APRN.STORE RECEIVING SPECIALIST - 04/12/2025 3:55 PM EDT Note Date & Type Note Facility 04-12-2025 Note HNO ID: [id number] Author: GINETTE LARIOS APRN.CYNDEE Service: ? 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 Brenda is a 49 year old who presents for an annual gynecologic exam without complaints. Menses: no menses - postmenopausal. Contraception: hysterectomy HPV vaccine: No Last Pap: 2005 normal HPV: negative History of abnormal pap: No Last mammogram: 2024 normal Sexually active: Yes OB History Gravida3 Para3 Term2 Preterm1 AB0 Living2 SAB0 IAB0 Ectopic0 Multiple0 Live Births2 Central Service Technician History LMP: 10/23/2006, Hysterectomy Age at Menarche: Age at First : Age at Menopause: Central Service Technician History Comments: Sexual Activity: Yes; Male; total abdominal hysterectomy Contraception: Surgical PAST MEDICAL HISTORY Diagnosis Date Asthma (HCC) Endometriosis Parathyroid disease (HCC) 2022 PAST SURGICAL HISTORY Procedure Laterality Date KIDNEY STONE SURGERY HX Bilateral x 2 with stent placement PARATHYROID FINE NEEDLE ASPIRATION 02/23/2024 3 glands removed TONSILLECTOMY AND ADENOIDECTOMY TOTAL ABDOMINAL HYSTERECT W/WO RMVL TUBE OVARY 11/24/2006 Hysterectomy, NAZIA BSO FAMILY HISTORY Problem Relation Age of Onset No Known Problems Mother No Known Problems Father No Known Problems Sister Cancer Maternal Grandfather LUNG [place], [place], CVA Stroke Paternal Grandfather No Known Problems Daughter No Known Problems Son SOCIAL HISTORY Social History Tobacco Use Smoking status: Never Smokeless tobacco: Never Vaping Use Vaping status: Never Used Substance Use Topics Alcohol use: No Drug use: No REVIEW OF SYSTEMS Abdomen: No abdominal pain, nausea, vomiting, diarrhea, or constipation. No bloating, early satiety, indigestion, or increased flatulence. Bladder: No dysuria, gross hematuria, urinary frequency, urinary urgency, or incontinence. Breast: No breast lumps, nipple d/c, overlying skin changes, redness or skin retraction. Allergies and current medication updated:Yes SENSITIVE EXAM: The sensitive examination was discussed with the Patient or Patient's Authorized Hand Assembler For Puller Over. As applicable, any other physician, advance practice provider, medical student, or other health professional student that will be observing or involved in the sensitive examination for educational or training purposes was discussed with the Patient or Authorized Hand Assembler For Puller Over. The Patient or Authorized Hand Assembler For Puller Over has agreed to proceed with the sensitive examination. (Sensitive examination includes inspection and/or palpation of the breasts, pelvis, prostate and anorectal regions). EXAM: BP 124/78 Ht 5' 7 (1.70m) Wt 323 lb 6.4 oz (146.7kg) LMP 10/23/2006 BMI 50.64 kg/(m2). GENERAL: pleasant, female in no apparent distress HEENT: Normocephalic, atraumatic, mucus membranes moist, and no lesions DERMATOLOGY: Normal, without lesions, non-icteric, and non-hirsute BREAST: soft, non-tender, symmetric, no dominant mass, normal nipple-areolar complex, no lymphadenopathy, and no nipple discharge CHEST: Normal inspiratory effort ABDOMEN: soft, non-tender, and no masses PELVIC: external genitalia normal, normal Bartholin's glands, urethra, [place]'s glands, no vulvar lesions, physiologic discharge present, [...] and information provided. 3) STD screening: Declined STI check. 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 Brenda is a 49 year old who presents for an annual gynecologic exam without complaints. Menses: no menses - postmenopausal. Contraception: hysterectomy HPV vaccine: No Last Pap: 2005 normal HPV: negative History of abnormal pap: No Last mammogram: 2024 normal Sexually active: Yes OB History Gravida3 Para3 Term2 Preterm1 AB0 Living2 SAB0 IAB0 Ectopic0 Multiple0 Live Births2 Central Service Technician History LMP: 10/23/2006, Hysterectomy Age at Menarche: Age at First : Age at Menopause: Central Service Technician History Comments: Sexual Activity: Yes; Male; total abdominal hysterectomy Contraception: Surgical PAST MEDICAL HISTORY Diagnosis Date Asthma (HCC) Endometriosis Parathyroid disease (HCC) 2022 PAST SURGICAL HISTORY Procedure Laterality Date KIDNEY STONE SURGERY HX Bilateral x 2 with stent placement PARATHYROID FINE NEEDLE ASPIRATION 02/23/2024 3 glands removed TONSILLECTOMY & ADENOIDECTOMY <AGE 12 TOTAL ABDOMINAL HYSTERECT W/WO RMVL TUBE OVARY 11/24/2006 Hysterectomy, NAZIA BSO FAMILY HISTORY Problem Relation Age of Onset No Known Problems Mother No Known Problems Father No Known Problems Sister Cancer Maternal Grandfather LUNG [place], [place], CVA Stroke Paternal Grandfather No Known Problems Daughter No Known Problems Son SOCIAL HISTORY Social History Tobacco Use Smoking status: Never Smokeless tobacco: Never Vaping Use Vaping status: Never Used Substance Use Topics Alcohol use: No Drug use: No REVIEW OF SYSTEMS Abdomen: No abdominal pain, nausea, vomiting, diarrhea, or constipation. No bloating, early satiety, indigestion, or increased flatulence. Bladder: No dysuria, gross hematuria, urinary frequency, urinary urgency, or incontinence. Breast: No breast lumps, nipple d/c, overlying skin changes, redness or skin retraction. Allergies and current medication updated:Yes SENSITIVE EXAM: The sensitive examination was discussed with the Patient or Patient's Authorized Hand Assembler For Puller Over. As applicable, any other physician, advance practice provider, medical student, or other health professional student that will be observing or involved in the sensitive examination for educational or training purposes was discussed with the Patient or Authorized Hand Assembler For Puller Over. The Patient or Authorized Hand Assembler For Puller Over has agreed to proceed with the sensitive examination. (Sensitive examination includes inspection and/or palpation of the breasts, pelvis, prostate and anorectal regions). EXAM: BP 124/78 Ht 5' 7 (1.70m) Wt 323 lb 6.4 oz (146.7kg) LMP 10/23/2006 BMI 50.64 kg/(m^2). GENERAL: pleasant, female in no apparent distress HEENT: Normocephalic, atraumatic, mucus membranes moist, and no lesions DERMATOLOGY: Normal, without lesions, non-icteric, and non-hirsute BREAST: soft, non-tender, symmetric, no dominant mass, normal nipple-areolar complex, no lymphadenopathy, and no nipple discharge CHEST: Normal inspiratory effort ABDOMEN: soft, non-tender, and no masses PELVIC: external genitalia normal, normal Bartholin's glands, urethra, [place]'s glands, no vulvar lesions, physiologic discharge present, [...] and information provided. 3) STD screening: Declined STI check. 4) Follow up one year or sooner as needed Ginette Larios APRN.STORE RECEIVING SPECIALIST documented in this encounter [facility] 04-12-2025 Progress note [facility] 04-12-2025 Progress note Note Date/Time April 12, 2025 8:06am [facility] [address] [place], [place] [address] OFFICE VISIT Date of Service: 04/12/25 MR#: [id number] Acct: [id number] Name: BRENDA ALCAZAR Rep #: [id number] : 1975 Provider: RADHA Muñoz Age/Sex: 49/F [place] [facility] Status: Signed Intake Vital Signs 04/11/24 07:46 04/10/25 08:30 04/12/25 07:37 Height 5 ft 7 in 5 ft 7 in 5 ft 7 in Weight: 322 lb 324 lb BMI 50.4 50.7 BP 148/91 H 144/90 H Blood Pressure Location Lt radial Lt brachial Position Sitting Sitting Respiration 16 18 Pulse 77 96 Pulse Source Monitor Monitor Temp 97.4 F L 96.8 F L Temp Source Temporal Pulse Oximetry (%) 98 97 Oxygen Delivery Method room air room air Oxygen Flow Rate (L/min) 98 Intake Visit Reasons: ACUTE- PERSISTENT LEG CRAMPS Chief Complaint: ACUTE- PERSISTENT LEG CRAMPS Is patient in pain?: No Allergies codeine Allergy (Intermediate, Verified 04/12/25 07:38) Rash Penicillins (PCN) Adverse Reaction (Verified 04/12/25 07:38) Yeast infection Medications ?Medication ?Instructions ?Recorded ?Confirmed ?Type estradiol 1 mg tablet 1 mg PO DAILY 04/16/1904/12 History cranberry fruit 400 mg capsule 500 mg PO DAILY 3 04/12/25 History fexofenadine 180 mg tablet 180 mg PO DAILY 01/13/23 History (Isaura Allergy) multivitamin 1 cap PO DAILY 01/13/23 07/2 02/10 History allergy shot subcut 04/12/23 04/12/25 His tory albuterol sulfate 90 mcg/actuation 2 puff inhalation Q 4H PRN 07/25/23 04/12/25 Rx aerosol inhaler shortness of breath or wheez ing #18 grams triamcinolone acetonide 55 55 mcg intranasal DAILY 04/12/25 History mcg/actuation nasal spray,aerosol montelukast 10 mg tablet 10 mg PO QPM #90 tabs 04/12/25 Rx fluticasone 500 mcg-salmeterol 50 1 inh inhalation BID #3 ea 04/10/25 04/12/25 Rx mcg/dose blistr powdr for inhalation (Advair Diskus) Have you fallen in the past year?: No Nurse's Note: pt reports that ever since having her parathyroidectomy last year she has been having whole leg cramps that extend from her calf into her thighs. pt states that it is throughout the day not just at night. [facility] Medical History PONV (postoperative nausea and vomiting) Renal stones Hyperparathyroidism History of kidney stones Back problem Wears glasses Wears contact lenses Non-smoker Leg cramps Asthma Allergic rhinitis migraine Seasonal allergies Surgical History S/P parathyroidectomy H/O sinus surgery History of tonsillectomy and adenoidectomy Hx of hysterectomy History of surgery History of cystoscopy Family History Father Cancer kidney Mother Asthma Grandfather Lung cancer Sister Graves disease Social History household members: spouse and children current occupational status: employed 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 Patient has been having leg cramps since her parahthyroidectomy. These are not every night but can go in spurts where she will have them for several nights in a row. She states that 95% of the time they occur at night. She states that she has been taking multi-vitamins. She states that the only thing that she has found that helps is drinking body armour drink. This is the only thing that has helped She is a good water drinker throughout the day. ROS Const Constitutional: No body ache, chills, excessive sweating, fatigue, fever(s), frequent falls, headache(s), snoring, weight change, sleep problems, abnormal sleep pattern or change in appetite Eyes Eyes: No blurry vision, change in vision, eye pain or Light sensitivity ENT ENT: No abnormal hearing, ear or mastoid pain, tinnitus, nasal congestion, headache(s), neck pain or sore throat Resp Respiratory: No cough, shortness of breath, snoring or wheezing Cardio Cardiology: No chest pain at rest, chest pain with exertion, excessive sweating,shortness of breath, dyspnea on exertion, lightheadedness, orthopnea or palpitations Gastro GI: No abdominal pain, change in bowel habits, constipation, cramping, diarrhea,nausea/dyspepsia or vomiting Genitourinary-Female: No burning urination, painful urination, urinary incontinence, urinary frequency, abnormal vaginal bleeding or pelvic pain Musc Musculoskeletal: No abnormal gait, joint pain, back pain, limited range of motion, neck pain, numbness or tingling Skin Skin: No dry skin, redness, lesions, itchy eyes, rash or wounds Neuro Neurology: No abnormal gait, abnormal hearing, frequent falls, headache(s), memory loss, numbness or tingling Psych Psychiatric: No abnormal sleep pattern, No anxiety, No change in appetite, No irritability, No memory loss and No Thoughts of harming yourself/Others Endo Endocrine: No cold intolerance, excessive sweating, fatigue, flushing, heat intolerance, increased thirst/drinking, increased hunger or weight change Aller/Imm Allergy/Immunologic: No itchy eyes, seasonal allergy symptoms, hives or wheezing Ap/Lymp Hematologic/Lymphatic: No easy bleeding, easy bruising, enlarged lymph nodes or other Exam Const General: cooperative, comfortable, no acute distress, well developed and well groomed Nutritional Appearance: obese morbidly obese Orientation: alert, awake and oriented x3 HENDC Head: normocephalic and atraumatic Ears: hearing grossly normal bilaterally Neck Neck: supple and nontender Resp Effort & Inspection: normal respiratory effort, able to speak in complete sentences, symmetric chest movement and no cough Auscultation: Bilateral: Clear to Auscultation Cardio Rate: regular rate Rhythm: regular rhythm Heart Sounds: S1 normal, S2 normal and no murmurs Bruits: no carotid bruits Pulses: radial pulses present bilaterally 1+ Neuro General: patient alert, patient awake, patient oriented x3, gait normal and moves all extremities Cognition: normal cognition Speech: speech normal Gait: normal gait Psych Appearance: grossly normal Mental Status: mental status grossly normal Mood: congruent mood Affect: normal affect Speech and Movement: speech and movement normal Attitude: cooperative Coding Level of Care Code Off vis,est,level 3 Diagnoses Muscle cramps R25.2 Assessment and Plan Assessment and Plan (1) Muscle cramps: Status: Acute Plan: Patient presents the office today with bilateral leg cramps which she states have been going on for a year now. Patient started to have these after she had a parathyroidectomy. They monitored her calcium and PTH at the same time she has not had any other lab work. Patient states that originally these were sort of on and off at the same time they can be more frequent where she has them nightly for several nights in a row. She states this month has been a little bit worse than previously. At this point patient states the only thing that derick found that has helped is if she drinks of Body Armor when these cramps start. She states that she has done this on many occasions and it definitely has been the thing that helps resolve her cramps. Patient does take a daily multivitamin as well as extra magnesium and vitamin D. No other changes that she is aware of. No changes in her job or daily activities of living. She states she gets a little swelling bilaterally but it has always gone for Flowers in the morning. 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 Again this is completely gone for Flowers the morning she states and on days she is active it is not there. So this time we are to get some basic labs and obviously if the Body Armor works have to consider other form of supplementationbut we will first check the electrolytes. No other concerns or complaints at this time. This note was generated with [employer] software. It may contain incorrectwords, spelling, and punctuation that were not noted in checking the note beforesigning. Orders: Orders CBC W/Diff, Automated Today R25.2 - Cramp and spasm Comprehensive Metabolic Profil Today R25.2 - Cramp and spasm Lipid Profile Today Z00.00 - Encounter for general adult medical examination without abnormal findings Vitamin D,25 Hydroxy Today R25.2 - Cramp and spasm Thyroid Stim Hormone (TSH) Today R25.2 - Cramp and spasm Clinical Quality Measures Falls Risk Screening/Assistive Devices Have you fallen in the past year?: No 04/12/25805 <Electronically signed by Elías GARCIA> Date _ Elías GARCIA Cosigner Signature: Date (if applicable) CC: ~ [facility] Work Phone: 1(808) 351-698507-23-2025 Evaluation note* Diagnosis Onset Date Resolution Status Admit Date Asthma chronic April 10 10:09am Seasonal allergies chronic March 202024 10:09am Muscle cramps acute April 12, 2025 7:34am [facility] Work Phone: 1(228) 220-459507-23-2025 History of Present illness Narrative* Yvan Rowan Mammo Tech - 04/10/2025 9:30 AM EDT Radiology Service Progress Note PATIENT NAME: Brenda Alcazar DATE OF SERVICE: April 10, 2025 TIME: 9:45 AM PATIENT IDENTITY VERIFICATION COMPLETED USING TWO (2) IDENTIFIERS: Name and Date of confirmedby patient verbally. FALL SCREENING: Has the patient had 2 falls in the last year or 1 fall with injury or currently using an Ambulatory Assistive Device (Walker, Cane, Wheelchair, Crutches, etc.)? No PATIENT GENDER DATA: Assigned female at . status: : No status:NO. PATIENT RELEVANT IMPLANT DATA REVIEWED: Not Applicable PATIENT PRESENTS WITH AN IMPLANTABLE OR ATTACHED OCEAN RESCUE LIEUTENANT: No RADIOLOGY DEPARTMENT: Mammography PERIPHERAL IV DATA: Not applicable SIGNED BY: Ailyn Gomez April 10, 2025 9:45 AM [facility] NoteHNO ID: [id number] Author: YVAN ROWAN Mammo Tech Service: ? Author Type: Histologist Type: Progress Notes Filed: 04/10/2025 09:46 Note Text: Radiology Service Progress Note PATIENT NAME: Brenda Alcazar DATE OF SERVICE: April 10, 2025 TIME: 9:45 AM PATIENT IDENTITY VERIFICATION COMPLETED USING TWO (2) IDENTIFIERS: Name and Date of confirmed by patient verbally. FALL SCREENING: Has the patient had 2 falls in the last year or 1 fall with injury or currently using an Ambulatory Assistive Device (Walker, Cane, Wheelchair, Crutches, etc.)? No PATIENT GENDER DATA: Assigned female at . status: : No status: NO. PATIENT RELEVANT IMPLANT DATA REVIEWED: Not Applicable PATIENT PRESENTS WITH AN IMPLANTABLE OR ATTACHED OCEAN RESCUE LIEUTENANT: No RADIOLOGY DEPARTMENT: Mammography PERIPHERAL IV DATA: Not applicable SIGNED BY: Ailyn Gomez April 10, 2025 9:45 [facility]03-07-2025 Telephone encounter Note* Telephone Encounter - Randi Qiu - 11/23/2024 8:32 AM EST Prescription Refill Information The patient has been identified by name and date of : Yes Caregiver verified no other encounters exist for this prescription request: Yes Caregiver confirmed with patient/requestor that no other refills are due, in the near future, with this provider at this time: Yes The last office visit in the department: 04-05-24 Does the patient have a future office visit with this provider/department: Yes Requested Prescriptions Pending Prescriptions Disp Refills estradiol (ESTRACE) 1 mg tablet 90 tablet 3 Sig: Take 1 tablet by mouth once daily. Randi Weinstein November 23, 2024 8:33 AM [facility]03-07-2025 Miscellaneous Notes* Telephone Encounter - Randi Qiu - 11/23/2024 8:32 AM EST Prescription Refill Information The patient has been identified by name and date of : Yes Caregiver verified no other encounters exist for this prescription request: Yes Caregiver confirmed with patient/requestor that no other refills are due, in the near future, with this provider at this time: Yes The last office visit in the department: 04-05-24 Does the patient have a future office visit with this provider/department: Yes Requested Prescriptions Pending Prescriptions Disp Refills estradiol (ESTRACE) 1 mg tablet 90 tablet 3 Sig: Take 1 tablet by mouth once daily. Randi Weinstein November 23, 2024 8:33 AM documented in this encounterL[facility] History of Present illness Narrative* Ginette Larios APRN.[facility] - 04/05/2024 8:54 AM EDT Brenda is a 48 year old who presents for an annual gynecologic exam without complaints. Menses: no menses - postmenopausal. Contraception: hysterectomy HPV vaccine: No Last Pap: 2005 normal HPV: negative History of abnormal pap: No Last mammogram: 2023normal Sexually active: Yes Pain with intercourse: No Postcoital bleeding: No Hot flashes: No Night sweats: No OB History T2 L2 SAB0 IAB0 Ectopic0 Multiple0 Live Births2 Central Service Technician History LMP: 10/23/2006, Hysterectomy Age at Menarche: Age at First : Age at Menopause: Central Service Technician History Comments: Sexual Activity: Yes; Male; total abdominal hysterectomy Contraception: Surgical PAST MEDICAL HISTORY Diagnosis Date Asthma Endometriosis Parathyroid disease (HCC) 2022 PAST SURGICAL HISTORY Procedure Laterality Date KIDNEY STONE SURGERY HX Bilateral x 2 with stent placement PARATHYROID FINE NEEDLE ASPIRATION 02/23/2024 3 glands removed TONSILLECTOMY & ADENOIDECTOMY <AGE 12 TOTAL ABDOMINAL HYSTERECT W/WO RMVL TUBE OVARY 11/24/2006 Hysterectomy, NAZIA BSO FAMILY HISTORY Problem Relation Age of Onset No Known Problems Mother No Known Problems Father No Known Problems Sister Cancer Maternal Grandfather LUNG CA, [place], CVA Stroke Paternal Grandfather No Known Problems [...] Allergies and current medication updated:Yes EXAM: BP 126/84 Ht 5' 6.25 (1.68m) Wt 310 lb (140.6kg) LMP 10/23/2006 BMI 49.64 kg/(m^2). GENERAL: pleasant, female in no apparent [...] external genitalia normal, normal Bartholin's glands, urethra, [place]'s glands, no vulvar lesions, physiologic discharge present, [...] needed Ginette Larios APRN.CYNDEE documented in this encounterL[facility] Note* Letter - Coordinator, Mammography - 03/16/2024 1:03 PM EDT March 16, 2024 PID: [id number] Brenda Alcazar [address] [place] [address] Dear Ms. Alcazar, We are pleased to inform you that the results of your recent breast imaging exam on 03/15/2024 are normal. Early detection of cancer is very important. We also understand recommendations regarding breast cancer screening are controversial. Please discuss with your primary care provider which strategy is best for you and whether a mammogram is right for you. Your imaging studies and report will be kept on file at [facility] as part of your permanent medical record and are available for your continuing care. Thank you for allowing us to help in meeting your health care needs. Sincerely, Dr. Celis Interpreting Radiologist [facility] (Normal over 40) [facility]06-28-[facility] Miscellaneous Notes* Letter - Coordinator, Mammography - 03/16/2024 1:03 PM EDT March 16, 2024 PID: [id number] Brenda Alcazar [address] [place] [address] Dear Ms. Alcazar, We are pleased to inform you that the results of your recent breast imaging exam on 03/15/2024 are normal. Early detection of cancer is very important. We also understand recommendations regarding breast cancer screening are controversial. Please discuss with your primary care provider which strategy is best for you and whether a mammogram is right for you. Your imaging studies and report will be kept on file at [facility] as part of your permanent medical record and are available for your continuing care. Thank you for allowing us to help in meeting your health care needs. Sincerely, Dr. Celis Interpreting Radiologist [facility] (Normal over 40) documented in this encounterL[facility]06-27-[facility] History of Present illness Narrative* Darcie France Mammo Tech - 03/15/2024 7:50 AM EDT Radiology Service Progress Note PATIENT NAME: Brenda Alcazar DATE OF SERVICE: March 15, 2024 TIME: 7:52 AM PATIENT IDENTITY VERIFICATION COMPLETED USING TWO (2) IDENTIFIERS: Name and Date of confirmedby patient verbally. FALL SCREENING: Has the patient had 2 falls in the last year or 1 fall with injury or currently using an Ambulatory Assistive Device (Walker, Cane, Wheelchair, Crutches, etc.)? No PATIENT GENDER DATA: Female. status: : No status: NO. PATIENT RELEVANT IMPLANT DATA REVIEWED: Not Applicable PATIENT PRESENTS WITH AN IMPLANTABLE OR ATTACHED OCEAN RESCUE LIEUTENANT: No RADIOLOGY DEPARTMENT: Mammography PERIPHERAL IV DATA: Not applicable SIGNED BY: Ailyn Daugherty March 15, 2024 7:52 AM documented in this encounterL[facility]-04-[facility]24 Telephone encounter Note * Telephone Encounter - Noris Millan LPN - 02/21/2024 8:58 AM EDT Patient has yearly exam 04/05/2024 [facility] Miscellaneous Notes* Telephone Encounter - Noris Millan LPN - 02/21/2024 8:58 AM EDT Patient has yearly exam 04/05/2024 documented in this encounterL[facility]08-30-[facility]23 History of Present illness Narrative* Matias Mejia RT(R) - 05/18/2023 3:00 PM EDT Radiology Service Progress Note PATIENT NAME: Brenda Alcazar DATE OF SERVICE: May 18, 2023 TIME: 3:13 PM PATIENT IDENTITY VERIFICATION COMPLETED USING TWO (2) IDENTIFIERS: Name and Date of confirmedby patient verbally. FALL SCREENING: Has the patient [...] 18, 2023 3:13 PM documented in this encounterLake [facility]06-02-[facility]23 History of Present illness Narrative* Ginette Larios APRN.STORE RECEIVING SPECIALIST - 02/18/2023 12:46 PM EDT Windows Security Analyst offered: Patient declines. Brenda is a 47 [...] L2 SAB0 IAB0 Ectopic0 Multiple0 Live Births2 Central Service Technician History LMP: 10/23/2006, Hysterectomy Age at Menarche: Age at First : Age at Menopause: Central Service Technician History Comments: Sexual Activity: Yes; Male; total [...] Problems Sister Cancer Maternal Grandfather LUNG [place], [place], CVA Stroke Paternal Grandfather No Known Problems [...] external genitalia normal, normal Bartholin's glands, urethra, [place]'s glands, no vulvar lesions, physiologic discharge present, [...] needed Ginette Larios APRN.CYNDEE documented in this encounterL[facility]06-02-2023 History of Present illness Narrative* Vanessa Friedman RT(R) - 02/18/2023 12:30 PM EDT Radiology Service Progress Note PATIENT NAME: Brenda Alcazar DATE OF SERVICE: February 18, 2023 TIME: 12:24 PM PATIENT IDENTITY VERIFICATION COMPLETED USING TWO (2) IDENTIFIERS: Name and Date of confirmedby patient verbally. FALL SCREENING: Has the patient [...] 18, 2023 12:24 PM documented in this encounterL[facility]05-04-[address] Biswas [facility] January 20, 2023 4:04pm Note Date/Time January 20, 2023 3:09pm [facility] Medical Records Department [address] [place] [address] Instructions for Home/Discharge Instructions 01/20/23 1508 MR#: [id number] Acct: [id number] Name: BRENDA ALCAZAR Rep #:[id number] : 1975 47 From: Dali Rowe PCP: Care Physician,No Primary [place] [facility] Instructions Diet Discharge Diet: No restrictions Activity Discharge Activity: Return to Normal Activity Dressing / Incision Call your doctor if you observe: Fever of 101 or Higher, Inability to urinate and Inability to have a bowel movement Follow Up Care Please Follow Up With: Dali Biswas MD When: Call the office for appointment in 2 to 3 weeks with KUB for stent removal Test Results: Test results from this visit will be discussed in further detail at your follow- up appointment, if applicable. Discharge Plan Admission Attending Provider: Dali Biswas Primary Care Provider: Care Physician,No Primary Discharge Orders/Prescriptions Prescriptions: New fluconazole [Diflucan] 150 mg tablet 150 mg PO DAILY 2 Days Qty: 2 0RF oxycodone-acetaminophen [Percocet] 5-325 mg tablet 1 tab PO Q8H PRN (Reason: pain) 3 Days Qty: 14 0RF cephalexin [cephalexin] 500 mg capsule 500 mg PO Q12 3 Days Qty: 6 0RF Continued estradiol 1 mg tablet 1 mg PO DAILY albuterol sulfate 90 mcg/actuation HFA aerosol inhaler 2 puff INHALATION Q4H PRN (Reason: shortness of breath or wheezing) Qty: 18 3RF Breo Ellipta 200-25 mcg/dose blister with device 1 inh INHALATION Q24H Qty: 3 3RF montelukast 10 mg tablet 10 mg PO QPM Qty: 90 3RF fexofenadine [Isaura Allergy] 180 mg Tablet 180 mg PO DAILY cranberry 400 mg Capsule 400 mg PO BID Rx Instructions: administer with meals multivitamin Capsule 1 cap PO DAILY fluticasone propionate [Flonase Allergy Relief] 50 mcg/actuation spray,suspension 2 spray INTRANASAL DAILY Qty: 16 6RF Referrals / Follow Up: Care Physician,No Primary [Primary Care Provider] - Disposition Disposition (needs filled in before D/C Order can be placed): Home, Self Care 01/20/23 1604<Electronically signed by Dali Biswas MD>Dali Biswas MD CC: No Primary Care Physician ~ Signed [facility] Work Phone: 1(143) 509-583705-04-[address] [facility] 12-21-[address] Biswas [facility] December 21, 2022 12:13pm Note Date/Time December 21, 2022 12:1 1pm [facility] Medical Records Department [address] [place] [address] Instructions for Home/Discharge Instructions 12/21/22 1211 MR#: [id number] Acct: [id number] Name: BRENDA ALCAZAR Rep #:[id number] : 1975 47 From: Dali Rowe PCP: Care Physician,No Primary Status :REG SDC Discharge Instructions Diet Discharge Diet: No restrictions Activity Discharge Activity: Return to Normal Activity May resume sexual activity in: No Restrictions Dressing / Incision Call your doctor if you observe: Fever of 101 or Higher, Inability to urinate and Inability to have a bowel movement Follow Up Care Please Follow Up With: Dali Biswas MD When: call office for appt Test Results: Test results from this visit will be discussed in further detail at your follow- up appointment, if applicable. Discharge Plan Admission Attending Provider: Dali Biswas Primary Care Provider: Care Physician,Katilin Primary Discharge Orders/Prescriptions Prescriptions: New phenazopyridine [Pyridium] 200 mg tablet 200 mg PO TID PRN PRN (Reason: Bladder Spasms) 7 Days Qty: 30 0RF cephalexin [cephalexin] 500 mg capsule 500 mg PO Q12 3 Days Qty: 6 0RF Continued estradiol 1 mg tablet 1 mg PO DAILY albuterol sulfate 90 mcg/actuation HFA aerosol inhaler 2 puff INHALATION Q4H PRN (Reason: shortness of breath or wheezing) Qty: 18 3RF Breo Ellipta 200-25 mcg/dose blister with device 1 inh INHALATION Q24H Qty: 3 3RF montelukast 10 mg tablet 10 mg PO QPM Qty: 90 3RF hydrocodone-acetaminophen 5-325 mg tablet 1 tab PO Q4H PRN (Reason: pain) 4 Days Qty: 20 0RF ondansetron 4 mg tablet,disintegrating 4 mg PO Q8H PRN (Reason: nausea and vomiting) Qty: 10 0RF fluticasone propionate [Flonase Allergy Relief] 50 mcg/actuation spray,suspension 2 spray INTRANASAL DAILY Qty: 16 6RF Referrals / Follow Up: Care Physician,No Primary [Primary Care Provider] - Disposition Disposition (needs filled in before D/C Order can be placed): Home, Self Care 12/21/22 1213<Electronically signed by Dali Biswas MD>Dali Biswas MD CC: No Primary Care Physician ~ Signed [facility] Work Phone: 1(785) 721-928004-04-[address] [facility] 12-20-2022 Hospital Discharge instructions Additional Instructions [place] for pain no more than 2 every 6 hours. Motrin 400 mg 3 times per day. Zofran as needed for nausea. Plenty of fluids to help prevent constipation. Fruits, vegetables and fiber. Colace as needed for constipation. You have a 7 mm stone on the right just below your kidney. Typically at 8 mm a get stuck but this 1 may have difficulty passing. Call and follow-up with either one of the urologist I referred you to to see which one can get you in sooner. This may pass on its own. It may need a procedure to help get it removed. Return if intractable pain, fever, intractable vomiting or just feeling worse. No driving today. And no driving while taking the pain medication.[facility] Work Phone: 1(327) 143-238204-03-[address] Douglas [facility] December 20, 2022 10:20am Note Date/Time December 20, 2022 7:00 am [facility] Medical Records Department [address] [place] [address] Emergency Department Summary 12/20/22 MR#: [id number] Acct: [id number] Name: BRENDA ALCAZAR Rep #:[id number] : 1975 47 From: Zen Douglas MD PCP: Care Physician,No Primary Status :REG ER Location: ED HPI HPI - GI History of Present Illness Chief Complaint: Abd Pain Informant: patient and spouse/S.O. Abdominal Pain/Flank Pain Onset: Weeks Context: Gradual Onset Timing: Intermittent Quality: Cramping and Dull Location: RUQ Current Severity: Moderate Maximum Severity: Moderate Worsened by: Food Relieved by: Nothing Nausea/Vomiting/Emesis GI Symptom: Positive for Nausea and Vomiting Onset: Today Severity: Mild Diarrhea/Melena/Hematochezia GI Symptom: Negative for Diarrhea, Melena or Hematochezia Associated Symptoms Associated Symptoms: Negative for Dysuria, Frequency, Hematuria or Urgency Narrative Narrative: 47-year-old female history of prior hysterectomy with BSO. Prior kidney stone. States that she has had right upper quadrant abdominal pain intermittent for thelast several weeks. Worse with eating. Nothing particular makes it better. Denies any fever or chills. No weight change. No abdominal trauma. Denies anydysuria hematuria. No fever. Worse pain this morning. She has not had it evaluated till today. Prior similar symptoms: No Recent Illness/Hospitalization: No PFSH PFSH Medical History Allergic rhinitis Asthma Cough migraine Seasonal allergies Home Medications estradiol 1 mg tablet 1 mg PO DAILY 04/16/19 [History Last Taken Unknown] albuterol sulfate 90 mcg/actuation aerosol inhaler 2 puff inhalation Q4H PRN shortness of breath or wheezing #18 grams 07/22/21 [Rx Last Taken Unknown] fluticasone propionate 50 mcg/actuation nasal spray,suspension (Flonase Allergy Relief) 2 spray intranasal DAILY #16 grams 09/02/21 [Rx Last Taken Unknown] fluticasone furoate 200 mcg-vilanterol 25 mcg/dose inhalation powder (Breo Ellipta) 1 inh inhalation Q24H #3 device 01/06/22 [Rx Last Taken Unknown] montelukast 10 mg tablet 10 mg PO QPM #90 tabs 01/06/22 [Rx Last Taken Unknown] hydrocodone-acetaminophen 5-325mg 5mg-325mg 1 tab PO Q4H PRN pain 4 days #20 tabs 12/20/22 [Rx Last Taken Unknown] ondansetron 4 mg disintegrating tablet 4 mg PO Q8H PRN nausea and vomiting #10 tabs 12/20/22 [Rx Last Taken Unknown] Allergy/AdvReac Type Severity Reaction Status Date / Time codeine Allergy Intermediate Rash Verified 01/06/22 07:46 Penicillins [PCN] AdvReac Yeast Verified 01/06/22 07:46 infection Family History Father Cancer Mother Asthma Grandfather Lung cancer Surgical History History of hysterectomy History of tonsillectomy and adenoidectomy Social History Smoking Status: Never smoker second hand exposure: No ROS ROS ED ROS Narrative Right upper quadrant abdominal pain. Nausea vomiting. No dysuria. No fever. Review of Systems ROS Unobtainable: Denies due to encephalopathy Constitutional Constitutional ED: Denies chills or fever(s) ENT ENT ED: Denies ear pain Cardiovascular Cardiovascular: Denies chest pain Respiratory/Chest Respiratory/Chest: Denies cough or dyspnea Gastrointestinal Gastrointestinal: Reports abdominal pain, nausea and vomiting; Denies constipation, diarrhea or melena Genitourinary Genitourinary ED: Denies dysuria or hematuria Musculoskeletal Musculoskeletal: Denies arthralgias Integumentary Denies abscess Neurologic Neurologic: Denies headache(s) Psychiatric Psychiatric: Denies anxiety Endocrine Endocrinology: Denies polydipsia Hematologic/Lymphatic Hematologic/Lymphatic: Denies easy bleeding Allergic/Immunologic Allergic/Immunologic ED: Denies mouth swelling or tongue swelling EXAM Physical Exam Narrative Exam Narrative: Piblucx-uapw-dxp female vital signs stable afebrile does look septic toxic. H EENT exam unremarkable. Neck nontender. Lungs clear. Heart regular rhythm no murmur. Abdomen soft nondistended normal bowel sounds no peritoneal signs. Mild right upper quadrant tenderness. No McBurney's point tenderness. No hernia or mass. No signs of obstruction. No pulsatile mass. Back nontender. No CVA tenderness. Moving all 4 extremities. Neurovascular intact. Neurologically awake and alert with no focal motor deficits. Const Vital Signs: 12/20/22 06:22 12/20/22 06:28 12/20/22 06:43 Temperature 98.4 F 99 F Temperature Source Temporal Temporal Pulse Rate 95 74 Respiratory Rate 15 17 Blood Pressure 176/101 H 130/74 H Blood Pressure Mean 126 92 Pulse Ox 100 Oxygen Delivery Method Room Air 12/20/22 09:00 Temperature Temperature Source Pulse Rate 76 Respiratory Rate 16 Blood Pressure 142/75 H Blood Pressure Mean 97 Pulse Ox 97 Oxygen Delivery Method Room Air Positive well nourished, well developed and obese; Negative for cachectic, contractures or unkempt General Appearance ED: well developed and NAD; Negative for unkempt, cachectic, contractures or pallor Nutritional Appearance: obese; Negative for cachectic HEENT Reports moist mucous membranes normocephalic and atraumatic; Negative for trauma or tenderness Eyes PERRL and EOMs intact bilaterally General Eye ED: Negative for pale conjunctiva or scleral icterus Neck no lymphadenopathy, supple and no JVD General: Negative for tenderness Carotids: Negative for other Lymph Lymphatic: Negative for other Resp normal respiratory effort and clear to auscultation bilaterally Effort and Inspection: Negative for respiratory distress or retractions Auscultation: Negative for rales, rhonchi or wheezes Cardio regular rate, regular rhythm, S1 normal heart sound, S2 normal heart sound and no murmurs Rate: Negative for bradycardia or tachycardic Rhythm: Negative for abnormal rhythm GI non-distended and no masses; Negative for non-tender Inspection: Negative for abdominal distention Auscultation: normoactive bowel sounds Palpation: soft and tender; Negative for guarding, rigid, hepatomegaly, splenomegaly, hernia, mass, pulsatile mass or rebound tenderness present Back/Spine no CVA tenderness General Back: Negative for CVA tenderness Cervical Spine: Negative for cervical spine tenderness Thoracic Spine / Upper Back: Negative for thoracic spinal tenderness Lumbar Spine / Lower Back: Negative for lumbar spinal tenderness Coccyx: Negative for other Extremity full ROM General Extremety ED: Negative for edema, tenderness or other findings General Extremity: Negative for edema or other findings Neuro CN's II-XII intact bilaterally and moves all extremities Sensorium / Orientation: alert, oriented to person, oriented to place and oriented to time; Negative for orientation impaired, confused, lethargic or stuporous Motor Exam: strength 5/5 throughout Psych mental status grossly normal and thought process normal Appearance: Negative for unkempt Attitude: No agitated Mood & Affect: Negative for depressed, anxious or tearful Skin no wounds General Skin Exam: Negative for jaundice or pallor Rashes: no rashes Trauma: Negative for abrasion Nails: Negative for discolored MDM MDM MDM Narrative Medical decision making narrative: 47-year-old female with right upper quadrant abdominal pain intermittently for 2 weeks. Worse with eating. This may be associated with gallbladder disease and later gallstones. She had a kidney stone before that the possibility historically sounds like gallbladder. I do not think it is an appendectomy without the possibility to her right side diverticulitis. CAT scan and labs pending. Treated with morphine for pain with Zofran for nausea. Toradol for pain also. Repeat exam patient is doing well at 9:45 AM. She still has pain but it is definitely improved. She will be given another dose of morphine and discharged home. She has a follow-up with urology either Dr. Biswas or Dr. [place]. [place] for pain. Zofran for nausea. Motrin 40 mg twice a day. Plenty of fluids. Colace to help with constipation. Return if intractable pain, vomiting or fever or feeling worse. History & Record Review Discussion w/independent historian: Patient Lab Data Attestation: I reviewed the patient's lab results. Lab results narrative: CBC normal. White count of 5.9. H&H 13.9 and 42. Platelets 271. Electrolytes sodium 134. Gap 6. Normal BUN and creatinine. Liver enzymes unremarkable. Glucose 119. Lipase normal at 95. uUrinalysis is negative. Labs: Laboratory Results - last 24 hr 12/20/22 12/20/22 12/20/22 06:40 06:40 07:30 WBC 5.9 RBC 4.66 Hgb 13.9 Hct 42.7 MCV 91.6 MCH 29.8 MCHC 32.6 RDW Std Deviation 43.3 RDW Coeff of Berenice 13.0 Plt Count 271 MPV 10.3 Immature Gran % (Auto) 0.500 Neut % (Auto) 65.2 Lymph % (Auto) 22.9 [place] % (Auto) 8.3 Eos % (Auto) 1.7 Baso % (Auto) 1.4 H Absolute Neuts (auto) 3.8 Absolute Lymphs (auto) 1.35 Nucleated RBC % 0 Sodium 134 L Potassium 4.2 Chloride 106 Carbon Dioxide 22.0 Anion Gap 6 BUN 16 Creatinine 0.85 Estim Creat Clear Calc 79.57 Est GFR (MDRD) Af Amer 93 Est GFR (MDRD) Non-Af 77 BUN/Creatinine Ratio 18.9 Glucose 119 H Calcium 10.1 Total Bilirubin 0.30 AST 20 ALT 23 Alkaline Phosphatase 60 Total Protein 7.7 Albumin 3.4 Globulin 4.3 H Albumin/Globulin Ratio 0.8 L Lipase 95 Urine Color Yellow Urine Clarity Clear Urine pH 7.0 Ur Specific Central 1.010 Urine Protein Negative Urine Glucose (UA) Normal Urine Ketones Negative Urine Occult Blood 25 H Urine Nitrite Negative Urine Bilirubin Negative Urine Urobilinogen Normal Ur Leukocyte Esterase Negative Urine RBC 0-5 SEEN Urine WBC 0 SEEN Ur Squamous Epith Cells 0-5 SEEN Urine Bacteria RARE Urine Mucus 0 SEEN Radiography Diagnostic Testing: Clinical Impression(s) from Imaging Studies Abdomen/Pelvis CT 12/20/22 06:50 IMPRESSION: 1. Obstructive 7 mm proximal right ureteral stone. 2. Nonobstructive 10 mm left renal stone. 3. Hepatic steatosis. Electronically Signed: Vish Curtis MD at 7:31 EDT , Discharge Plan Triage Chief Complaint: Abd Pain ED Provider: Zen Douglas Dx/Rx/DC Orders Clinical Impression: Acute right flank pain, Kidney stone on right side Instructions: ED Kidney Stone w/ Colic Prescriptions: New hydrocodone-acetaminophen 5-325 mg tablet 1 tab PO Q4H PRN (Reason: pain) 4 Days Qty: 20 0RF ondansetron 4 mg tablet,disintegrating 4 mg PO Q8H PRN (Reason: nausea and vomiting) Qty: 10 0RF No Action estradiol 1 mg tablet 1 mg PO DAILY albuterol sulfate 90 mcg/actuation HFA aerosol inhaler 2 puff INHALATION Q4H PRN (Reason: shortness of breath or wheezing) Qty: 18 3RF Breo Ellipta 200-25 mcg/dose blister with device 1 inh INHALATION Q24H Qty: 3 3RF montelukast 10 mg tablet 10 mg PO QPM Qty: 90 3RF fluticasone propionate [Flonase Allergy Relief] 50 mcg/actuation spray,suspension 2 spray INTRANASAL DAILY Qty: 16 6RF Primary Care Provider: Care Physician,No Primary Referrals: Brandon Sandoval MD [Med Staff - Active Staff] - Dali Biswas MD [Med Staff - Active Staff] - As soon as possible Fritz [place] MD [Med Staff - Active Staff] - As soon as possible Activity Restrictions/Additional Instructions: [place] for pain no more than 2 every 6 hours. Motrin 400 mg 3 times per day. Zofran as needed for nausea. Plenty of fluids to help prevent constipation. Fruits, vegetables and fiber. Colace as needed for constipation. You have a 7 mm stone on the right just below your kidney. Typically at 8 mm a get stuck but this 1 may have difficulty passing. Call and follow-up with either one of the urologist I referred you to to see which one can get you in sooner. This may pass on its own. It may need a procedure to help get it removed. Return if intractable pain, fever, intractable vomiting or just feeling worse. No driving today. And no driving while taking the pain medication. Disposition Disposition: Home, Self Care What to do if you have Problems For any increased pain, shortness of breath, bleeding, nausea or vomiting, chestpain, or any unexpected problems, contact your Primary Care Provider. Call [facility] [employer] [facility] ([phone]) or report to the closest Emergency Room. Call 911 if necessary. 12/20/22 1020 <Electronically signed by Zen Douglas MD> Cosigner Signature (if applicable): CC: No Primary Care Physician ~ Signed [facility] Work Phone: [phone] 273-163705-12-2022 Miscellaneous Notes* Telephone Encounter - Jessica Jacobs RN - 01/28/2022 8:54 AM EDT Refill request received from pharmacy. Patient seen in the office today for annual exam. Jessica Jacobs RN [facility] Miscellaneous Notes* Letter - Mammography Coordinator - 01/28/2022 8:03 AM EDT January 28, 2022 PID: [id number] Brenda Alcazar [id number] [id number] Dear Ms. Alcazar, We are pleased to [...] report will be kept on file at [facility] as part of your permanent medical record and are available for your continuing care. Thank you for allowing us to help in meeting your health care needs. Sincerely, Dr. Carey Interpreting Radiologist [facility] (Normal over 40) documented in this encounterLake [facility] History of Present illness Narrative* Ginette Larios APRN.CYNDEE - 01/28/2022 7:53 AM EDT Brenda is a 46 year old who [...] L2 SAB0 IAB0 Ectopic0 Multiple0 Live Births2 Central Service Technician History LMP: 10/23/2006, Hysterectomy Age at Menarche: Age at First : Age at Menopause: Central Service Technician History Comments: Sexual Activity: Yes; Male; total [...] Problems Sister Cancer Maternal Grandfather LUNG [place], [place], CVA Stroke Paternal Grandfather No Known Problems [...] external genitalia normal, normal Bartholin's glands, urethra, [place]'s glands, no vulvar lesions, physiologic discharge present, [...] needed Ginette Larios APRN.CNP documented in this encounterL[facility] History of Present illness Narrative* RT Ewelina(R) - 01/28/2022 7:30 AM EDT Radiology Service Progress Note PATIENT NAME: Brenda Alcazar DATE OF SERVICE: January 28, 2022 TIME: 7:30 AM PATIENT IDENTITY VERIFICATION COMPLETED USING TWO (2) IDENTIFIERS: Name and Date of confirmedby patient verbally. FALL SCREENING: Has the patient had 2 falls in the last year or 1 fall with injury or currently using an Ambulatory Assistive Device (Walker, Cane, Wheelchair, Crutches, etc.)? No PATIENT GENDER DATA: Female. status: : No status: NO. PATIENT RELEVANT IMPLANT DATA REVIEWED: Not Applicable RADIOLOGY DEPARTMENT: Mammography PERIPHERAL IV DATA: Not applicable SIGNED BY: RT Ewelina([place]) January 28, 2022 7:30 AM [facility] Diagnosis Encounter for screening mammogram for malignant neoplasm of breast- Primary Other screening mammogram documented [facility]* Diagnosis Encounter for gynecological examination (general) (routine) without abnormal findings- Primary Encounter for screening mammogram for breast cancer documented [facility]* Diagnosis Premature surgical menopause Postablative ovarian failure [facility] Diagnosis Encounter for screening mammogram for malignant neoplasm of breast Other screening mammogram [facility] noteNo assessment information availableWWhite Hospital Work Phone: evaluation note* Diagnosis Encounter for gynecological examination (general) (routine) without abnormal findings- Primary Encounter for screening mammogram for breast cancer Premature surgical menopause Postablative ovarian failure Encounter for screening for osteoporosis Special screening for osteoporosis [facility]* Diagnosis Onset Date Resolution Status Body mass index (BMI) 50-59.9, adult chronic Seasonal allergies chronic Seasonal allergies chronic Immunization declined noneac tive Screening for colon cancer n oneactive Moderate persistent asthma without complication noneactive Screening for cardiovascular condition noneactive Establishing care with new doctor, encounter for noneactive Annual physical exam noneact carolin Recurrent kidney stones none active Bilateral hand pain noneacti ve [facility] Work Phone: evaluation note* Diagnosis Encounter for screening mammogram for breast cancer [facility]* Diagnosis Premature surgical menopause Postablative ovarian failure Encounter for screening for osteoporosis Special screening for osteoporosis [facility]* Diagnosis Onset Date Resolution Status Seasonal allergies chronic Immunization declined noneac tive Screening for colon cancer n oneactive Moderate persistent asthma without complication noneactive Screening for cardiovascular condition noneactive Establishing care with new doctor, encounter for noneactive Annual physical exam noneact carolin Recurrent kidney stones none active Bilateral hand pain noneacti ve [facility] Work Phone: evaluation note* Diagnosis Onset Date Resolution Status Hyperparathyroidism chronic Renal stones [facility] Work Phone: Evaluation note* Diagnosis Premature surgical menopause Postablative ovarian failure [facility]* Diagnosis Encounter for screening mammogram for breast cancer [facility]* Diagnosis Encounter for gynecological examination (general) (routine) without abnormal findings- Primary Encounter for screening mammogram for breast cancer documented [facility]* Diagnosis Premature surgical menopause Postablative ovarian failure [facility]* Diagnosis Encounter for gynecological examination (general) (routine) without abnormal findings Encounter for screening mammogram for breast cancer documented [facility]* Diagnosis Encounter for gynecological examination (general) (routine) without abnormal findings- Primary Encounter for screening mammogram for breast cancer Premature surgical menopause Postablative ovarian failure [facility] Additional Instructions Implant Used?: Yes GYRUS [facility] Work Phone: Reason for referral (narrative)* Diagnostic Procedure Only (Routine) - Pending Review Specialty Diagnoses / Procedures Referred By Dustin shanks Referred To Contact [facility] Diagnoses Encounter for screening mammogram for malignant neoplasm of breast Procedures BENTLEY SCREENING SCREENING MAMMOGRAPHY BI 2-VIEW BREAST INC CAD Ginette Larios APRN.STORE RECEIVING SPECIALIST [address] [place] [address] [facility] [address] [place] [address] Referral ID Status Reason Start Date Expiration Date Visits Requested Visits Authorized [id number] Pending Review Auto-Generat ed Referral 01/25/2022 02/21/2023 1 1 [facility] for referral (narrative)* Diagnostic Procedure Only (Routine) - Pending Review Specialty Diagnoses / Procedures Referred By Dustin t Referred To Contact [facility] Diagnoses Encounter for screening mammogram for breast cancer Procedures BENTLEY SCREENING SCREENING MAMMOGRAPHY BI 2-VIEW BREAST INC CAD Ginette Larios APRN.STORE RECEIVING SPECIALIST [address] [place] [address] [facility] [address] [place] [address] Referral ID Status Reason Start Date Expiration Date Visits Requested Visits Authorized [id number] Pending Review Auto-Generat ed Referral 01/28/2022 02/27/2023 1 1 [facility] for referral (narrative)* Diagnostic Procedure Only (Routine) - Closed Specialty Diagnoses / Procedures Referred By Contoneyda t Referred To Contact [facility] Diagnoses Encounter for screening mammogram for malignant neoplasm of breast Procedures BENTLEY SCREENING SCREENING MAMMOGRAPHY BI 2-VIEW BREAST INC CAD Ginette Larios, EMPLOYER RELATIONS REPRESENTATIVE.STORE RECEIVING SPECIALIST [address] [place] [address] [facility] [address] [place] [address] Referral ID Status Reason Start Date Expiration Date V isits Requested Visits Authorized [id number] Closed Auto-Generate d Referral 01/25/2022 02/21/2023 1 1 [facility] for referral (narrative)* Diagnostic Procedure Only (Routine) - Pending Review Specialty Diagnoses / Procedures Referred By Contac t Referred To Contact [facility] Diagnoses Encounter for screening mammogram for breast cancer Procedures BENTLEY SCREENING SCREENING MAMMOGRAPHY BI 2-VIEW BREAST INC CAD [facility], YANDEL.STORE RECEIVING SPECIALIST [address] [place] [address] [facility] [address] [place] [address] Referral ID Status Reason Start Date Expiration Date Visits Requested Visits Authorized [id number] Pending Review Auto-Generat ed Referral 02/18/2023 03/19/2024 1 1 [facility] for referral (narrative)* Diagnostic Procedure Only (Routine) - Closed Specialty Diagnoses / Procedures Referred By Contac t Referred To Contact [facility] Diagnoses Encounter for screening mammogram for breast cancer Procedures BENTLEY SCREENING SCREENING MAMMOGRAPHY BI 2-VIEW BREAST INC [facility], EMPLOYER RELATIONS REPRESENTATIVE.STORE RECEIVING SPECIALIST [address] [place] [address] [facility] [address] [place] [address] Referral ID Status Reason Start Date Expiration Date V isits Requested Visits Authorized [id number] Closed Auto-Generate d Referral 01/28/2022 02/27/2023 1 1 [facility] for referral (narrative)* Diagnostic Procedure Only (Routine) - New Request Specialty Diagnoses / Procedures Referred By Contac t Referred To Contact [facility] Diagnoses Encounter for gynecological examination (general) (routine) without abnormal findings Encounter for screening mammogram for breast cancer Procedures BENTLEY SCREENING W STARR SCREENING DIGITAL BREAST TOMOSYNTHESIS BI SCREENING MAMMOGRAPHY BI 2-VIEW BREAST INC CAD Ginette Larios APRN.STORE RECEIVING SPECIALIST [address] [place] [address] [facility] [address] [place] [address] Referral ID Status Reason Start Date Expiration Date Visits Requested Visits Authorized [id number] New Request Auto-Generat ed Referral 04/05/2024 05/05/2025 1 1 [facility] for referral (narrative)No reason for referral information availableKing'S D[facility] Work Phone: Reason for visit Narrative* Diagnostic Procedure Only (Routine) - Closed Specialty Diagnoses / Procedures Referred By Dustin shanks Referred To Contact [facility] Diagnoses Encounter for screening mammogram for malignant neoplasm of breast Procedures BENTLEY SCREENING SCREENING MAMMOGRAPHY BI 2-VIEW BREAST INC CAD Ginette Larios, EMPLOYER RELATIONS REPRESENTATIVE.STORE RECEIVING SPECIALIST [address] [place] [address] [facility] [address] [place] [address] Referral ID Status Reason Start Date Expiration Date V isits Requested Visits Authorized [id number] Closed Auto-Generate d Referral 01/25/2022 02/21/2023 1 1 [facility] for visit Narrative* Diagnostic Procedure Only (Routine) - Closed Specialty Diagnoses / Procedures Referred By Dustin shanks Referred To Contact [facility] Diagnoses Encounter for screening mammogram for breast cancer Procedures BENTLEY SCREENING SCREENING MAMMOGRAPHY BI 2-VIEW BREAST INC CAD Ginette Larios, EMPLOYER RELATIONS REPRESENTATIVE.STORE RECEIVING SPECIALIST [address] [place] [address] [facility] [address] [place] [address] Referral ID Status Reason Start Date Expiration Date V isits Requested Visits Authorized [id number] Closed Auto-Generate d Referral 01/28/2022 02/27/2023 1 1 [facility] for visit Narrative* Diagnostic Procedure Only (Routine) - Closed Specialty Diagnoses / Procedures Referred By Dustin shanks Referred To Contact [facility] Diagnoses Encounter for screening mammogram for breast cancer Procedures BENTLEY SCREENING SCREENING MAMMOGRAPHY BI 2-VIEW BREAST INC CAD Ginette Larios, YANDEL.STORE RECEIVING SPECIALIST [address] [place] [address] [facility] [address] [place] [address] Referral ID Status Reason Start Date Expiration Date V isits Requested Visits Authorized [id number] Closed Auto-Generate d Referral 02/18/2023 03/19/2024 1 1 [facility] N[facility]* Diagnostic Procedure Only (Routine) - Closed Specialty Diagnoses / Procedures Referred By Dustin shanks Referred To Contact [facility] Diagnoses Encounter for gynecological examination (general) (routine) without abnormal findings Encounter for screening mammogram for breast cancer Procedures BENTLEY SCREENING W STARR SCREENING DIGITAL BREAST TOMOSYNTHESIS BI SCREENING MAMMOGRAPHY BI 2-VIEW BREAST INC Ginette Benitez, YANDEL.STORE RECEIVING SPECIALIST [address] [place] [address] Phone: tel: fax: [facility] [address] [place] [address] Referral ID Status Reason Start Date Expiration Date V isits Requested Visits Authorized [id number] Closed Auto-Generate d Referral 04/05/2024 05/05/2025 1 1 [facility] Chief Complaint and Reason for Visit Chief Complaint ABDOMINAL PAIN Chief Complaint ABDOMINAL PAIN LEFT ESWL CYSTO STENT Chief Complaint ABDOMINAL PAIN LEFT ESWL CYSTO STENT KUB KIDNEY STONES Chief Complaint LEFT ESWL CYSTO STEN T KUB KIDNEY STONES 1 Y FU CYSTO, URETEROSCOPY, LASER, STENT, BASKET EXTRAC CORSETIER. EST CARE - PPW SENT Reason for Visit Body mass index (BMI ) 50-59.9, adult Seasonal allergies Seasonal allergies Immunization declined Screening for colon cancer Moderate persistent asthma without complication Screening for cardiovascular condition Establishing care with new doctor, encounter for Annual physical exam Recurrent kidney stones Bilateral hand pain Chief Complaint KIDNEY STONES 1 Y FU CYSTO, URETEROSCOPY, LASER, STENT, BASKET EXTRAC CORSETIER. EST CARE - PPW SENT Reason for Visit Body mass index (BMI ) 50-59.9, adult Seasonal allergies Seasonal allergies Immunization declined Screening for colon cancer Moderate persistent asthma without complication Screening for cardiovascular condition Establishing care with new doctor, encounter for Annual physical exam Recurrent kidney stones Bilateral hand pain Chief Complaint KIDNEY STONES 1 Y FU CYSTO, URETEROSCOPY, LASER, STENT, BASKET EXTRAC CORSETIER. EST CARE - PPW SENT E ORDER Reason for Visit Body mass index (BMI ) 50-59.9, adult Seasonal allergies Seasonal allergies Immunization declined Screening for colon cancer Moderate persistent asthma without complication Screening for cardiovascular condition Establishing care with new doctor, encounter for Annual physical exam Recurrent kidney stones Bilateral hand pain Chief Complaint CORSETIER. EST CARE - PPW S ENT E ORDER SINUSITIS Reason for Visit Seasonal allergies Immunization declined Screening for colon cancer Moderate persistent asthma without complication Screening for cardiovascular condition Establishing care with new doctor, encounter for Annual physical exam Recurrent kidney stones Bilateral hand pain Chief Complaint SINUSITIS Hyperparathyroidism EORDER Reason for Visit Hyperparathyroidism Renal stones Chief Complaint Hyperparathyroidism EORDER HYPERPARATHYROIDISM Reason for Visit Hyperparathyroidism Renal stones Chief Complaint Admit Date 1 Y FU April 10, 2025 10:0 9am Chief Complaint Admit Date 1 Y FU April 10, 2025 10:0 9am ACUTE- PERSISTENT LEG CRAMPS April 12, 2025 7:34am Reason for Visit Admit Date Asthma April 10, 2025 10:0 9am Seasonal allergies April 10, 2025 10:0 9am Muscle cramps April 12, 2025 7:34 am Family History No Family History Records Found Relationship Condition Age at Onset Recorded Date/T vishal father Malignant neoplasm Unknown mother Asthma Unknown grandfather Malignant neoplasm of lung Unknown Relationship Condition Age at Onset Recorded Date/T vishal father Malignant neoplasm Unknown mother Asthma Unknown grandfather Malignant neoplasm of lung Unknown sister Graves' disease Unknown Advance Directives No Advanced Directives Records Found Advance Directive Response Recorded Date/ Time Living Will No December 20, 2022 6:26am Power of J2Ee Java Developer No December 20 6:26am Advance Directive Response Recorded Date/ Time Living Will No December 21, 2022 10:25am Power of J2Ee Java Developer No December 21 10:25am Advance Directive Response Recorded Date/ Time Living Will No January 13, 2023 12:49pm Power of J2Ee Java Developer No January 13 12:49pm Advance Directive Response Recorded Date/ Time Living Will No March 30, 2023 12:12pm Power of J2Ee Java Developer No March 30 12:12pm Advance Directive Response Recorded Date/ Time Living Will No March 30, 2023 11:12am Power of J2Ee Java Developer No March 30 11:12am Advance Directive Response Recorded Date/ Time Living Will No February 23, 2024 7 :12pm Do you have a Healthcare Power of J2Ee Java Developer? No February 23, 2024 7:12pm Summary Purpose Additional Source Comments Source Comments (unrecognize d section and content) In the event this informatio n is protected by the Federal Confidentiality of Alcohol and Drug Abuse Patient Records regulations: The Federal rules restrict any use of the information to criminally investigate or prosecute any alcohol or drug abuse patient.[facility] the event this information is protected by the Federal Confidentiality of Alcohol and Drug Abuse Patient Records regulations: The Federal rules restrict any use of the information to criminally investigate or prosecute any alcohol or drug abuse patient.[facility] the event this information is protected by the Federal Confidentiality of Alcohol and Drug Abuse Patient Records regulations: The Federal rules restrict any use of the information to criminally investigate or prosecute any alcohol or drug abuse patient.[facility] the event this information is protected by the Federal Confidentiality of Alcohol and Drug Abuse Patient Records regulations: The Federal rules restrict any use of the information to criminally investigate or prosecute any alcohol or drug abuse patient.[facility] the event this information is protected by the Federal Confidentiality of Alcohol and Drug Abuse Patient Records regulations: The Federal rules restrict any use of the information to criminally investigate or prosecute any alcohol or drug abuse patient.[facility] the event this information is protected by the Federal Confidentiality of Alcohol and Drug Abuse Patient Records regulations: The Federal rules restrict any use of the information to criminally investigate or prosecute any alcohol or drug abuse patient.[facility] West[facility] the event this information is protected by the Federal Confidentiality of Alcohol and Drug Abuse Patient Records regulations: The Federal rules restrict any use of the information to criminally investigate or prosecute any alcohol or drug abuse patient.[facility] West[facility] the event this information is protected by the Federal Confidentiality of Alcohol and Drug Abuse Patient Records regulations: The Federal rules restrict any use of the information to criminally investigate or prosecute any alcohol or drug abuse patient.[facility] the event this information is protected by the Federal Confidentiality of Alcohol and Drug Abuse Patient Records regulations: The Federal rules restrict any use of the information to criminally investigate or prosecute any alcohol or drug abuse patient.[facility] the event this information is protected by the Federal Confidentiality of Alcohol and Drug Abuse Patient Records regulations: The Federal rules restrict any use of the information to criminally investigate or prosecute any alcohol or drug abuse patient.[facility] the event this information is protected by the Federal Confidentiality of Alcohol and Drug Abuse Patient Records regulations: The Federal rules restrict any use of the information to criminally investigate or prosecute any alcohol or drug abuse patient.[facility] the event this information is protected by the Federal Confidentiality of Alcohol and Drug Abuse Patient Records regulations: The Federal rules restrict any use of the information to criminally investigate or prosecute any alcohol or drug abuse patient.[facility] the event this information is protected by the Federal Confidentiality of Alcohol and Drug Abuse Patient Records regulations: The Federal rules restrict any use of the information to criminally investigate or prosecute any alcohol or drug abuse patient.[facility] the event this information is protected by the Federal Confidentiality of Alcohol and Drug Abuse Patient Records regulations: The Federal rules restrict any use of the information to criminally investigate or prosecute any alcohol or drug abuse patient.[facility] the event this information is protected by the Federal Confidentiality of Alcohol and Drug Abuse Patient Records regulations: The Federal rules restrict any use of the information to criminally investigate or prosecute any alcohol or drug abuse patient.[facility] Reason for Visit (unrecogniz ed section and content) Reason Comments Yearly Exam With Mammogram Reason Comments Refill Request Reason Comments Yearly Exam Reason Onset Date Comments Refill Request 02/21/2024 Reason Onset Date Comments Refill Request 11/23/2024 Reason Comments [facility] Teams (unrecognized sec tion and content) Team Status: Active Member Role Status Dates No Primary Care Physician Family Provider Active No Primary Care Physician Primary Care Provider Active Team Status: Inactive Member Role Status Dates Dr. Zen Douglas MD Emergency Provider Active No Primary Care Physician Primary Care Provider Active Team Status: Inactive Member Role Status Dates No Primary Care Physician Primary Care Provider Active Dr. Dali Biswas MD Attending Provider, Referring P rovider Active Team Status: Inactive Member Role Status Dates Dr. Zen Douglas MD Attending Provider, Emergency Pro vider Active No Primary Care Physician Primary Care Provider Active Team Status: Active Member Role Status Dates No Primary Care Physician Family Provider Active Dr. Zeinab Walton MD Primary Care Provider Active Team Status: Inactive Member Role Status Dates Dr. Brandon Sandoval MD Referring Provider Activ e Dr. Rigoberto Black MD Attending Provider Active No Primary Care Physician Primary Care Provider Active Team Status: Inactive Member Role Status Dates No Primary Care Physician Referring Provider Active Dr. Zeinab Walton MD Primary Care Provider, Attendi ng Provider Active Team Status: Inactive Member Role Status Dates Dr. Dali Biswas MD Attending Provider, Referring P rovider Active Dr. Zeinab Walton MD Primary Care Provider Active Team Status: Inactive Member Role Status Dates Dr. Zeinab Walton MD Primary Care Provider Active Dr. Dali Biswas MD Attending Provider, Referring P rovider Active Team Status: Inactive Member Role Status Dates Dr. Zeinab Walton MD Primary Care Provider, Attendi ng Provider Active Team Status: Inactive Member Role Status Dates Dr. Zeinab Walton MD Primary Care Provider Active Dr. Brandon Sandoval MD Attending Provider, Refe rring Provider Active Team Status: Inactive Member Role Status Dates Dr. Zeinab Walton MD Primary Care Provider, Referri ng Provider Active Dr. Haile Garcias MD Attending Provider Active Team Status: Inactive Member Role Status Dates Dr. Zeinab Walton MD Primary Care Provider Active Dr. Haile Garcias MD Attending Provider, Referring Provi nikki Active Team Status: Active Member Role/Relationship Status Dates No Primary Care Physician Family Provider Active Dr. Zeinab Walton MD Primary Care Provider Active Team Status: Inactive Member Role/Relationship Status Dates Dr. Zeinab Walton MD Primary Care Provider Active Start: March 19, 2025 Dr. Dali Biswas MD Attending Provider Active Start: March 19, 2025 Team Status: Inactive Member Role/Relationship Status Dates Dr. Zeinab Walton MD Primary Care Provider Active Start: April 10, 2025 End: April 10, 2025 Dr. Zeinab Walton MD Referring Provider Active Start: April 10, 2025 End: April 10, 2025 Brenda Bundy NP, CORSETIER-C Attending Provider Active Start: April 10, 2025 End: April 10, 2025 Team Status: Active Member Role/Relationship Status Dates Dr. Zeinab Walton MD Primary Care Provider Active Team Status: Inactive Member Role/Relationship Status Dates Dr. Zeinab Walton MD Primary Care Provider Active Start: April 12, 2025 End: April 12, 2025 Dr. Zeinab Walton MD Referring Provider Active Start: April 12, 2025 End: April 12, 2025 Elías GARCIA PA Attending Provider Active St art: April 12, 2025 End: April 12, 2025 Team Status: Active Member Role/Relationship Status Dates Dr. Zeinab Walton MD Primary Care Provider Active Start: April 12, 2025 Elías GARCIA PA Attending Provider Active St art: April 12, 2025 Elías GARCIA PA Referring Provider Active St art: April 12, 2025 Team Status: Inactive Member Role/Relationship Status Dates Dr. Zeinab Walton MD Primary Care Provider Active Start: April 12, 2025 End: April 12, 2025 Elías GARCIA PA Attending Provider Active St art: April 12, 2025 End: April 12, 2025 Elías GARCIA, PA Referring Provider Active St art: April 12, 2025 End: April 12, 2025 Goals (unrecognized section and content) Goals may be documented in a n alternate sectionGoals may be documented in an alternate sectionGoals may be documented in an alternate sectionGoals may be documented in an alternate sectionGoals may be documented in an alternate sectionGoals may be documented in an alternate sectionGoals may be documented in an alternate section INFORMATION SOURCE (unrecogn ized section and content) DATE CREATED AUTHOR 04/14/2025 [facility] DATE CREATED AUTHOR 'Cynthia DURAN 04/19/2025 [facility] FOR RECORDS PERTAINING TO PATIENTS WHO ARE [...] BE BASED ON THE PRIMARY CLINICAL RECORDS. [employer] [facility]. provides no warranty or guarantee of the accuracy or completeness of information in this document.
== END | disposition home or self-care (01) ==
LOC: LABSPEC 15:04
PROVIDERS: PCP Internal Medicine
DX: J01.90 Acute sinusitis, unspecified (principal)
CPT/HCPCS: 87070; 87077; 87186; 87205